=== PATIENT | male | born 1955 | race Caucasian/White ===

== ENCOUNTER 2017-07-23 02:49 | Inpatient (IN) | payer BC, OTHER ==
[~2017-07-23] VITALS: Ht 172.7 cm; Wt 107.1 kg
[2017-07-23] VITALS (8 sets, daily range): BP systolic 126–210; BP diastolic 77–119; PULSE 62–74; TEMP 36.4–36.9; O2SAT 95–97; Ht 172.7 cm; Wt 107.1 kg
[~2017-07-23 02:49] MED LIST: ASPEC325 PO; ATOR10TA88 PO; CARV25TA2 PO; CLON0.1T12 PO; GLC/500 PO; LISI-786 PO; TERA1CAP PO; VRP40 PO
[2017-07-23] MEDS ORDERED: SODIUM CHLORIDE 0.9% 1000ML 1,000 ML IV SCH (03:01)
[2017-07-23] MEDS ORDERED: ONDANSETRON INJ 2 MG/ML 2 ML VIAL IV STA (03:02)
[2017-07-23] MEDS ORDERED: MoRPHine SULFATE 4 MG/ML 1 ML CARP\\VIAL IV STA (03:02)
[2017-07-23] MEDS ORDERED: LABETALOL HCL IV 5 MG/ML 20ML IV STA ×3 (03:22→04:00)
[2017-07-23 03:25] LABS: BASO % 0.5 %; BASO ABS # 0.05 K/uL (0-0.2); COMPLETE YES; EOS % 2.5 %; HEMATOCRIT 47.5 % (42-52); IG% 0.4 %; LYMPH % 31.8 %; LYMPH ABS # 3.28 K/uL (1.2-3.4); MEAN CELL VOLUME 79.7 fL (80-100); MEAN CORPUSCULAR HEMOGLOBIN 26.3 pg (25-34); MEAN CORPUSCULAR HGB CONC 33.1 g/dl (32-36); MEAN PLATELET VOLUME 10.3 fL (7.4-10.4); MONO % 10.1 %; NEUT % 54.7 %; PLATELET COUNT 276 K/uL (130-400); RED BLOOD COUNT 5.96 M/uL (4.7-6.1)
[2017-07-23 03:33] LABS: PARTIAL THROMBOPLASTIN RATIO 1.2; PROTHROMBIN TIME (PATIENT) 10.7 SECONDS (9.0-12.0)
[2017-07-23] MEDS ORDERED: OPTIRAY 320 IV PRN (04:00)
[2017-07-23 04:18] LABS: ALT/SGPT 29 U/L (12-78); AST/SGOT 22 U/L (15-37); BLOOD UREA NITROGEN 14 mg/dl (7-18); BUN/CREATININE RATIO 14.5 (10-20); CALCIUM 8.5 mg/dl (8.5-10.1); CARBON DIOXIDE 26 mmol/L (21-32); CHLORIDE 105 mmol/L (98-107); GLUCOSE 142 mg/dl (70-99); POTASSIUM 4.2 mmol/L (3.5-5.1); SODIUM 137 mmol/L (136-145)
[2017-07-23 04:23] LABS: ALKALINE PHOSPHATASE 80 U/L (45-117); CKMB/CK RATIO 1.3 (0-3.0)
[2017-07-23] MEDS ORDERED: HydrALAZINE HCL 20 MG/ML VIAL IV. STA (04:23)
[2017-07-23] MEDS ORDERED: ASPI81TA28 PO (05:19)
[2017-07-23] MEDS ORDERED: ATOR-22 PO (05:20)
[2017-07-23] MEDS ORDERED: TRAM-10 PO (05:21)
[2017-07-23] MEDS ORDERED: TERA5CAP PO (05:22)
[2017-07-23] MEDS ORDERED: CLON0.1T12 PO (05:27)
[2017-07-23] MEDS ORDERED: FINA5TAB PO (05:28)
--- NOTE | 2017-07-23 06:00 | EMERGENCY ROOM VISIT NOTE ---
History First contact with patient: 02:57 Chief Complaint: HEADACHE Stated Complaint: HEADACHE History of Present Illness The patient is a 62 year old male who presents to the Emergency Room with complaints of severe sudden on onset of headache that woke him up out of sleep currently 7 out of 10 to the left frontal region. It does not radiate. Nothing makes it better or worse. Patient also complains of nausea. Patient states he felt fine all day and was working like normal but then he felt slightly tired and nauseous and went to bed early. He states he woke up out of sleep with severe headache. He does not have a history of migraines. Patient denies chest pain, dyspnea, fever, chills, vomiting, diarrhea, localized weakness, injury to the area. Patient takes a baby aspirin. Patient states he does not normally have high blood pressure like this. Review of Systems See HPI for pertinent positives & negatives. A total of 10 systems reviewed and were otherwise negative. Past Medical/Surgical History Medical Problems: (1) right Knee DJD Hypertension, hyperlipidemia, diabetes type 2, nephrectomy Social History Smoking Status: Never Smoker Smokeless Tobacco Use: Yes Drug Use: none Marital Status: Housing Status: lives with family Occupation Status: employed Current/Historical Medications Scheduled Aspirin (Aspirin Ec), 81 MG PO DAILY Atorvastatin (Lipitor), 20 MG PO HS Carvedilol (Coreg), 25 MG PO BID Clonidine Hcl (Catapres), 0.1 MG PO QPM Clonidine Hcl (Catapres), 0.2 MG PO QAM Finasteride (Proscar), 5 MG PO DAILY Lisinopril & Hydrochlorothiazi (Zestoretic), 1 TAB PO BID Metformin Hcl (Glucophage), 500 MG PO BID Terazosin (Hytrin), 5 MG PO HS Verapamil (Calan), 40 MG PO BID Scheduled PRN Tramadol (Ultram), 50 MG PO Q8H PRN for Pain Physical Exam Vital Signs Date Time Temp Pulse Resp B/P (MAP) Pulse Ox O2 Delivery O2 Flow Rate FiO2 07/23/17 05:21 83 208/104 96 Room Air 07/23/17 05:11 179/113 07/23/17 05:01 206/99 07/23/17 04:10 67 15 235/122 93 07/23/17 04:00 68 16 220/120 96 07/23/17 03:50 67 15 226/114 94 07/23/17 03:44 71 16 221/114 97 Room Air 07/23/17 03:31 72 07/23/17 03:31 69 18 224/107 96 07/23/17 03:22 72 18 233/125 95 Room Air 07/23/17 03:13 95 Room Air 07/23/17 02:54 36.9 75 18 246/132 95 Room Air Physical Exam VITALS: Vitals are noted on the nurse's note and reviewed by myself. Vital signs hypertensive GENERAL: Pleasant male, in no acute distress, nondiaphoretic, well-developed well-nourished. SKIN: The skin was without rashes, erythema, edema, or bruising. There is no tenting of the skin. Capillary reflex less than 2 seconds. HEAD: Normocephalic atraumatic. EARS: External auditory canals clear, tympanic membranes pearly moon without erythema or effusion bilaterally. EYES: Pupils equal round and reactive to light and accommodation. Conjunctivae without injection, sclerae without icterus. Extraocular movements intact. NOSE: Patent, turbinates without inflammation or discharge. No sinus tenderness. MOUTH: Mucous membranes moist. Pharynx without erythema or exudate. Uvula midline. Airway patent. Tongue does not deviate. NECK: Supple without nuchal rigidity. No lymphadenopathy. No thyromegaly. Cervical spine is nontender. No JVD. HEART: Regular rate and rhythm LUNGS: Clear to auscultation bilaterally without wheezes, rales or rhonchi. No dullness to percussion. No retractions or accessory muscle use. ABDOMEN: Positive bowel sounds x 4. Normal tympanic percussion. Soft, nontender, without masses or organomegaly. Alatorre sign negative. No guarding or rebound tenderness. MUSCULOSKELETAL: No muscle atrophy, erythema, or edema noted. NEURO: Patient was alert and oriented to person place and time. Normal sensation to light and sharp touch. No focal neurological deficits. Medical Decision & Procedures Laboratory Results 07/23/17 03:05 Red Blood Count 5.96, Mean Corpuscular Volume 79.7, Mean Corpuscular Hemoglobin 26.3, Mean Corpuscular Hemoglobin Concent 33.1, Mean Platelet Volume 10.3, Neutrophils (%) (Auto) 54.7, Lymphocytes (%) (Auto) 31.8, Monocytes (%) (Auto) 10.1, Eosinophils (%) (Auto) 2.5, Basophils (%) (Auto) 0.5, Neutrophils # (Auto ) 5.63, Lymphocytes # (Auto) 3.28, Monocytes # (Auto) 1.04, Eosinophils # (Auto ) 0.26, Basophils # (Auto) 0.05 07/23/17 03:05 Test 07/23/17 03:05 White Blood Count 10.30 K/uL (4.8-10.8) Red Blood Count 5.96 M/uL (4.7-6.1) Hemoglobin 15.7 g/dL (14.0-18.0) Hematocrit 47.5 % (42-52) Mean Corpuscular Volume 79.7 fL (80-100) Mean Corpuscular Hemoglobin 26.3 pg (25-34) Mean Corpuscular Hemoglobin Concent 33.1 g/dl (32-36) Platelet Count 276 K/uL (130-400) Mean Platelet Volume 10.3 fL (7.4-10.4) Neutrophils (%) (Auto) 54.7 % Lymphocytes (%) (Auto) 31.8 % Monocytes (%) (Auto) 10.1 % Eosinophils (%) (Auto) 2.5 % Basophils (%) (Auto) 0.5 % Neutrophils # (Auto) 5.63 K/uL (1.4-6.5) Lymphocytes # (Auto) 3.28 K/uL (1.2-3.4) Monocytes # (Auto) 1.04 K/uL (0.11-0.59) Eosinophils # (Auto) 0.26 K/uL (0-0.5) Basophils # (Auto) 0.05 K/uL (0-0.2) RDW Standard Deviation 40.7 fL (36.4-46.3) RDW Coefficient of Variation 14.1 % (11.5-14.5) Immature Granulocyte % (Auto) 0.4 % Immature Granulocyte # (Auto) 0.04 K/uL (0.00-0.02) Prothrombin Time 10.7 SECONDS (9.0-12.0) Prothromb Time International Ratio 1.0 (0.9-1.1) Activated Partial Thromboplast Time 30.1 SECONDS (21.0-31.0) Partial Thromboplastin Ratio 1.2 Anion Gap 6.0 mmol/L (3-11) Est Creatinine Clear Calc Drug Dose 92.8 ml/min Estimated GFR () 93.1 Estimated GFR (Non- 80.3 BUN/Creatinine Ratio 14.5 (10-20) Calcium Level 8.5 mg/dl (8.5-10.1) Total Bilirubin 0.4 mg/dl (0.2-1) Direct Bilirubin < 0.1 mg/dl (0-0.2) Aspartate Amino Transf (AST/SGOT) 22 U/L (15-37) Alanine Aminotransferase (ALT/SGPT) 29 U/L (12-78) Alkaline Phosphatase 80 U/L (45-117) Total Creatine Kinase 193 U/L (39-308) Creatine Kinase MB 2.5 ng/ml (0.5-3.6) Creatine Kinase MB Ratio 1.3 (0-3.0) Troponin I < 0.015 ng/ml (0-0.045) Total Protein 7.5 gm/dl (6.4-8.2) Albumin 3.9 gm/dl (3.4-5.0) Medications Administered Medications (Trade) Dose Ordered Sig/Nika Route Start Time Stop Time Status Last Admin Dose Admin Sodium Chloride 1,000 ml @ 50 mls/hr Q20H IV 07/23/17 03:01 08/22/17 03:00 07/23/17 03:30 50 MLS/HR Morphine Sulfate (MoRPHine SULFATE INJ) 4 mg NOW STAT IV 07/23/17 03:02 07/23/17 03:03 DC 07/23/17 03:08 4 MG Ondansetron HCl (Zofran Inj) 4 mg NOW STAT IV 07/23/17 03:02 07/23/17 03:03 DC 07/23/17 03:08 4 MG Labetalol HCl (Normodyne IV) 10 mg NOW STAT IV 07/23/17 03:22 07/23/17 03:23 DC 07/23/17 03:30 10 MG Labetalol HCl (Normodyne IV) 10 mg NOW STAT IV 07/23/17 03:41 07/23/17 03:42 DC 07/23/17 03:44 10 MG Labetalol HCl (Normodyne IV) 10 mg NOW STAT IV 07/23/17 04:00 07/23/17 04:01 DC 07/23/17 04:08 10 MG Hydralazine HCl (HydrALAZINE INJ) 10 mg NOW STAT IV. 07/23/17 04:23 07/23/17 04:24 DC 07/23/17 04:36 10 MG ED Course Prior records/ancillary studies reviewed. Additional history obtained from family. Triage Nursing notes reviewed. The patient's history was concerning for headache. Differential diagnosis: Etiologies such as migraine headache, meningitis, sinusitis, CO exposure, ICH, SAH, infection, tumor, headache, sinus thrombosis, arterial dissection, as well as others were entertained. Physical examination findings: As above. Non-focal. ER treatment provided: Morphine, Zofran, labetalol, hydralazine On reassessment the patient felt better. Diagnostics interpreted by me: ECG: Normal sinus, normal intervals, no acute ST-T wave changes. Impression normal sinus rhythm interpreted by myself The labs revealed stable H&H. Negative troponin. Imaging studies: Head CT negative for intracranial bleed per radiology CTA negative for bleed or aneurysm Consultation: A consultation was placed with the hospitalist, Dr Edwards. The case was discussed and diagnostics were reviewed. The patient was evaluated in the ER for further treatment. This appears to be consistent with hypertensive urgency with headache. Patient was given multiple rounds of anti-hypertensive medications. He was still hypertensive. His headache has improved though. No aneurysm or bleed on CT imaging per radiology. Patient was neurovascularly and neurologically intact. He will be evaluated by medicine for possible admission.. By the evaluation outlined above emergent etiologies such as meningitis, sinusitis, CO exposure, ICH, SAH, infection, temporal arteritis, tumor, sinus thrombosis, arterial dissection, as well as others were deemed relatively unlikely. The pt informed about the findings as listed above. All questions were answered and pleased with the treatment. Case reviewed with my attending Medical Decision As above Medication Reconcilliation Current Medication List: was personally reviewed by me Blood Pressure Screening Patient's blood pressure: Elevated blood pressure Blood pressure disposition: Referred to PCP Impression Primary Impression: Hypertensive urgency Additional Impression: Headache Departure Information Dispostion Being Evaluated By Hospitalist Condition FAIR Referrals Lukas Davila M.D. (MEDICAL) (PCP) Patient Instructions My [facility] Problem Qualifiers
--- NOTE | 2017-07-23 07:01 | DIAGNOSTIC IMAGING REPORT ---
HEAD CTA HISTORY: Headache. TECHNIQUE: Multiaxial CT images of the head were performed after the intravenous administration of contrast to evaluate the major cerebral vessels. Maximum intensity projection images were also obtained. A dose lowering technique was utilized adhering to the principles of ALARA. COMPARISON: Head CT 07/23/2017. FINDINGS: There is no mass, hematoma, midline shift, or acute infarct. Moderate focal calcified plaque within the supraclinoid segment of the right internal carotid artery resulting in mild stenosis. Mild calcified plaque within the supraclinoid segment of the left internal carotid artery without significant stenosis. The distal vertebral arteries, and basilar artery are widely patent. 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 IMPRESSION: Mild stenosis within the supraclinoid segment of the right internal carotid artery. Otherwise, no significant stenosis, occlusion, or aneurysm within the [place]. Electronically signed by: Josef Sotelo M.D. 07/23/2017 7:00 AM Dictated Date/Time: 07/23/2017 6:56 AM
--- NOTE | 2017-07-23 07:25 | DIAGNOSTIC IMAGING REPORT ---
HEAD CT NONCONTRAST CT DOSE: 614.27 mGy.cm HISTORY: Stroke TECHNIQUE: Multiaxial CT images of the head were performed without the use of intravenous contrast. Automated exposure control was utilized for this study. A dose lowering technique was utilized adhering to the principles of ALARA. Comparison: None. Findings: Mild mucosal thickening within the ethmoid air cells and right maxillary sinus. Small lipoma superior to the left cerebellar vermis. Small focus of encephalomalacia within the right centrum semiovale. This favors an old lacunar infarct. The calvarium and skull base are intact. The ventricles and sulci are within normal limits. There is no mass, hematoma, midline shift, or acute infarct. Impression: No acute intracranial abnormality. Electronically signed by: Josef Sotelo M.D. 07/23/2017 7:24 AM Dictated Date/Time: 07/23/2017 7:22 AM
[2017-07-23] MEDS ORDERED: ACETAMINOPHEN 325 MG TAB PO PRN (08:15)
[2017-07-23] MEDS ORDERED: ONDANSETRON INJ 2 MG/ML 2 ML VIAL IV PRN (08:15)
[2017-07-23] MEDS ORDERED: POLYETHYLENE (MIRALAX) 17 GM PACK PO PRN (08:15)
--- NOTE | 2017-07-23 09:21 | History and Physical ---
History & Physical Date & Time of Service: Jul 23, 2017 at 08:56 Chief Complaint: Headache Primary Care Physician: Lukas Davila M.D. (MEDICAL) History of Present Illness Source: patient, family Patient is a 62 yo male who presented to the ER today for complaints of a severe TONG and throbbing sensation behind his eyes that awoke him from sleep. He reports never having these types of symptoms before. He states he went to sleep with a mild TONG around 10 and by 12 AM he woke up with sharp stabbing type pain behind his eyes and a severe TONG and came to the ER right away. He denies any recent medication changes but does admit he does not take his medications the way he should, he states alot of times he just forgets it, he often misses at least one dose a day and his also states this has been an ongoing issue and she is always reminding him to take his pills. He denies any visual changes of blurry or double vision, denies any photophobia. His eye pain has improved since being in the ER. He denies any other associated symptoms, but he does mention that unrelated to his presenting problem that he does experience chest pressure and SOB with exertion and has also noticed decreasing tolerance to exertional activities. He denies any lightheadedness/dizziness, N/V/D, abdominal pain, palpitations, diaphoresis, fever, chills. rigors. He states he had a cough and cold last week but it has mostly resolved and he did not take any OTC medications for the symptoms. Past Medical/Surgical History PAST MEDICAL HISTORY: -Hyperlipidemia -Hypertension. -Diabetes mellitus -Obesity with a BMI of 37 -Single kidney due to prior nephrectomy -Nephrolithiasis (in the kidney that was removed) -History of melanoma -Osteoarthritis PAST SURGICAL HISTORY: -Nephrectomy in 2001. -Herniorrhaphy. -Shoulder surgery. -TKA -Tonsillectomy and adenoidectomy Social History Smoking Status: Former Smoker (quit smoking about 15 years ago) Smokeless Tobacco Use: Yes (1 can of snuff a day for 15 years) Alcohol Use: occasionally Drug Use: none Marital Status: Housing status: lives with family Occupational Status: employed Immunizations History of Influenza Vaccine: No History of Tetanus Vaccine?: Yes Tetanus Immunization Date: Aug 11, 2004 History of Pneumococcal: No History of Hepatitis B Vaccine: No Multi-Drug Resistant Organisms History of MDRO: No Allergies Coded Allergies: No Known Allergies (Verified , 10/21/16) Home Medications Scheduled Aspirin (Aspirin Ec), 81 MG PO DAILY Atorvastatin (Lipitor), 20 MG PO HS Carvedilol (Coreg), 25 MG PO BID Clonidine Hcl (Catapres), 0.1 MG PO QPM Clonidine Hcl (Catapres), 0.2 MG PO QAM Finasteride (Proscar), 5 MG PO DAILY Lisinopril & Hydrochlorothiazi (Zestoretic), 1 TAB PO BID Metformin Hcl (Glucophage), 500 MG PO BID Terazosin (Hytrin), 5 MG PO HS Verapamil (Calan), 40 MG PO BID Scheduled PRN Tramadol (Ultram), 25-50 MG PO Q8H PRN for Pain Review of Systems A full 10 systems were reviewed with the patient, the pertinent positives and negatives are in the HPI, all other ROS conducted were negative Physical Exam Vital Signs Date Time Temp Pulse Resp B/P (MAP) Pulse Ox O2 Delivery O2 Flow Rate FiO2 07/23/17 08:45 72 19 96 07/23/17 08:40 186/105 07/23/17 08:31 212/129 07/23/17 08:20 182/106 07/23/17 08:15 76 18 97 07/23/17 08:10 169/97 07/23/17 08:00 160/96 07/23/17 07:50 180/98 07/23/17 07:45 74 22 94 07/23/17 07:40 175/105 07/23/17 07:30 185/99 07/23/17 07:20 191/99 07/23/17 07:15 75 15 95 07/23/17 07:10 187/109 07/23/17 07:05 96 Room Air 07/23/17 07:00 162/90 07/23/17 06:51 190/94 07/23/17 06:45 73 20 96 07/23/17 06:40 164/91 07/23/17 06:30 189/87 07/23/17 06:20 170/98 07/23/17 06:15 74 15 96 07/23/17 06:14 70 18 187/88 Room Air 07/23/17 06:10 187/88 07/23/17 06:00 201/112 07/23/17 05:50 188/106 07/23/17 05:45 75 16 95 07/23/17 05:40 210/107 07/23/17 05:30 202/113 07/23/17 05:21 83 208/104 96 Room Air 07/23/17 05:21 208/104 07/23/17 05:15 77 23 96 07/23/17 05:11 179/113 07/23/17 05:10 179/113 07/23/17 05:01 206/99 07/23/17 05:00 206/99 07/23/17 04:56 211/98 07/23/17 04:45 71 17 212/107 95 07/23/17 04:40 211/112 07/23/17 04:20 219/106 07/23/17 04:15 64 18 94 07/23/17 04:10 67 15 235/122 93 07/23/17 04:00 68 16 220/120 96 07/23/17 03:50 67 15 226/114 94 07/23/17 03:44 71 16 221/114 97 Room Air 07/23/17 03:31 72 07/23/17 03:31 69 18 224/107 96 07/23/17 03:22 72 18 233/125 95 Room Air 07/23/17 03:13 95 Room Air 07/23/17 02:54 36.9 75 18 246/132 95 Room Air General Appearance: WD/WN, no apparent distress Head: normocephalic, atraumatic Eyes: PERRL, EOMI, sclerae normal, + pertinent finding (conjunctival erythema in both eyes) ENT: normal ENT inspection, hearing grossly normal, pharynx normal Neck: supple, no JVD, no carotid bruits, trachea midline Respiratory/Chest: chest non-tender, lungs clear, normal breath sounds, no respiratory distress Cardiovascular: regular rate, rhythm, no edema, no gallop, no JVD, no murmur, normal peripheral pulses Abdomen/GI: normal bowel sounds, non tender, soft, no organomegaly, + hepatomegaly (slight), + pertinent finding (no splenomegaly, no hernia or peritonitis noted) Back: normal inspection, no CVA tenderness, no muscle spasm Extremities/Musculoskelatal: no calf tenderness, normal capillary refill, no pedal edema Neurologic/Psych: no motor/sensory deficits, alert, normal mood/affect, oriented x 3 Skin: normal color, warm/dry, no rash Lymphatic: no adenopathy Diagnostics Laboratory Results Results Past 24 Hours Test 07/23/17 03:05 Range/Units White Blood Count 10.30 4.8-10.8 K/uL Red Blood Count 5.96 4.7-6.1 M/uL Hemoglobin 15.7 14.0-18.0 g/dL Hematocrit 47.5 42-52 % Mean Corpuscular Volume 79.7 80-100 fL Mean Corpuscular Hemoglobin 26.3 25-34 pg Mean Corpuscular Hemoglobin Concent 33.1 32-36 g/dl Platelet Count 276 130-400 K/uL Mean Platelet Volume 10.3 7.4-10.4 fL Neutrophils (%) (Auto) 54.7 % Lymphocytes (%) (Auto) 31.8 % Monocytes (%) (Auto) 10.1 % Eosinophils (%) (Auto) 2.5 % Basophils (%) (Auto) 0.5 % Neutrophils # (Auto) 5.63 1.4-6.5 K/uL Lymphocytes # (Auto) 3.28 1.2-3.4 K/uL Monocytes # (Auto) 1.04 0.11-0.59 K/uL Eosinophils # (Auto) 0.26 0-0.5 K/uL Basophils # (Auto) 0.05 0-0.2 K/uL RDW Standard Deviation 40.7 36.4-46.3 fL RDW Coefficient of Variation 14.1 11.5-14.5 % Immature Granulocyte % (Auto) 0.4 % Immature Granulocyte # (Auto) 0.04 0.00-0.02 K/uL Prothrombin Time 10.7 9.0-12.0 SECONDS Prothromb Time International Ratio 1.0 0.9-1.1 Activated Partial Thromboplast Time 30.1 21.0-31.0 SECONDS Partial Thromboplastin Ratio 1.2 Sodium Level 137 136-145 mmol/L Potassium Level 4.2 3.5-5.1 mmol/L Chloride Level 105 98-107 mmol/L Carbon Dioxide Level 26 21-32 mmol/L Anion Gap 6.0 3-11 mmol/L Blood Urea Nitrogen 14 7-18 mg/dl Creatinine 1.00 0.60-1.40 mg/dl Est Creatinine Clear Calc Drug Dose 92.8 ml/min Estimated GFR () 93.1 Estimated GFR (Non- 80.3 BUN/Creatinine Ratio 14.5 10-20 Random Glucose 142 70-99 mg/dl Calcium Level 8.5 8.5-10.1 mg/dl Total Bilirubin 0.4 0.2-1 mg/dl Direct Bilirubin < 0.1 0-0.2 mg/dl Aspartate Amino Transf (AST/SGOT) 22 15-37 U/L Alanine Aminotransferase (ALT/SGPT) 29 12-78 U/L Alkaline Phosphatase 80 45-117 U/L Total Creatine Kinase 193 39-308 U/L Creatine Kinase MB 2.5 0.5-3.6 ng/ml Creatine Kinase MB Ratio 1.3 0-3.0 Troponin I < 0.015 0-0.045 ng/ml Total Protein 7.5 6.4-8.2 gm/dl Albumin 3.9 3.4-5.0 gm/dl Impression Assessment and Plan HTN URGENCY: -presenting with severe headache, and throbbing pain behind eyes, now improving -likely related to missing doses of medications and recent illness -CT head: negative for acute intracranial process -CTA head: "moderate focal calcified plaque within the supraclinoid segment of the right internal carotid artery resulting in mild stenosis. Mild calcified plaque within the supraclinoid segment of the left internal carotid artery without significant stenosis." Other remaining vessels patent and free of stenosis -will obtain TTE -will start patients home medications and monitor BP -at home is supposed to be on clonidine, lisinopril/HCTZ, and coreg -headache is improving, continue tylenol and tramadol PRN -monitor in tele -check lipid panel DM TYPE II: -check HbA1c -hold metformin -BSG AC and HS -cover with correction scale insulin + lantus HYPERLIPIDEMIA: -continue statin, check lipids Advanced Directives Existing Living Will: No Existing Power of Departmental Shipping Clerk: No VTE Prophylaxis VTE Risk Assessment Done? Y/N: Yes Risk Level: Moderate
[2017-07-23] MEDS ORDERED: DEXTROSE 50% 50 ML SYR IV PRN (09:30)
[2017-07-23] MEDS ORDERED: GLUCAGON FOR INJ 1 MG VIAL SQ PRN (09:30)
[2017-07-23] MEDS ORDERED: GLUCOSE 10 TABS/TUBE PO PRN (09:30)
[2017-07-23] MEDS ORDERED: GLUCOSE 40% GEL 15 GM TUBE PO PRN (09:30)
[2017-07-23] MEDS: CARVEDILOL 25 MG TAB PO SCH ×2 (09:56→20:56)
[2017-07-23] MEDS: ASPIRIN 81 MG ECTAB PO SCH (09:56)
[2017-07-23] MEDS: VERAPAMIL HCL 40 MG TAB PO SCH ×2 (09:56→20:56)
[2017-07-23] MEDS: ENOXAPARIN 40 MG/0.4 ML SYR SC SCH (09:57)
[2017-07-23] MEDS: FINASTERIDE 5 MG TAB PO SCH (09:57)
[2017-07-23] MEDS: CLONIDINE HCL 0.1 MG TAB PO SCH (09:57)
[2017-07-23] MEDS: LISINOPRIL/HCTZ 10/12.5MG TAB PO SCH ×2 (09:57→20:56)
[2017-07-23] MEDS: INSULIN ASPART 100 UNITS/ML 3 ML PEN SC SCH ×3 (11:00→20:57)
[2017-07-23] MEDS: TRAMADOL HCL 50 MG TAB PO PRN ×2 (12:04→23:01)
--- NOTE | 2017-07-23 14:15 | ECHOCARDIOGRAM REPORT ---
*NOTICE TO RECEIVING [employer] [employer] This information is strictly Confidential and protected under [place] law. [place] law prohibits you from making any further disclosure of this information unless further disclosure is expressly permitted by the written consent of the person to whom it pertains or is authorized by law. A general authorization for the release of medical or other information is not sufficient for this purpose. Hospital accepts no responsibility if the information is made available to any other person, INCLUDING THE PATIENT. Interpretation Summary * Name: CORAZON FERNANDEZ Study Date: 07/23/2017 10:41 AM BP: 187/88 mmHg * Patient Location: 218 HR: 70 * : 1955 (M/d/yyyy) Gender: Male Height: 67 in * Age: 62 yrs Ethnicity: [place] Weight: 245 lb * Ordering Physician: Izabel Whitehead * Referring Physician: Self, Referred * Performed By: Wendy Callejas RDCS * * Reason For Study: Malignant Hypertension * BSA: 2.2 m2 * -- Conclusions -- * Left ventricular systolic function is normal. * Ejection Fraction = 60-65%. * There is moderate concentric left ventricular hypertrophy. * The right ventricular systolic function is normal. * Aortic valve sclerosis mild, without significant aortic valvular stenosis. * The left atrial size is normal. * Right atrial size is normal. * Grade I diastolic dysfunction, (abnormal relaxation pattern). * No significant valvular pathology. Procedure Details * A complete two-dimensional transthoracic echocardiogram was performed (2D, M-mode, Doppler and color flow Doppler). Left Ventricle * The left ventricle is normal in size. * There is moderate concentric left ventricular hypertrophy. * Ejection Fraction = 60-65%. * Left ventricular systolic function is normal. Right Ventricle * The right ventricle is normal size. * There is normal right ventricular wall thickness. * The right ventricular systolic function is normal. Atria * The left atrial size is normal. * Right atrial size is normal. * The interatrial septum is intact with no evidence for an atrial septal defect. Mitral Valve * There is mild mitral annular calcification. * The mitral valve leaflets appear thickened, but open well. * Calcified mitral apparatus. * Significant mitral regurgitation is absent. Tricuspid Valve * The tricuspid valve is not well visualized, but is grossly normal. * Significant tricuspid regurgitation is absent. Aortic Valve * Aortic valve sclerosis mild, without significant aortic valvular stenosis. * There is no significant aortic regurgitation. Pulmonic Valve * The pulmonic valve is not well visualized. * There is no significant pulmonary regurgitation. Great Vessels * The aortic root and proximal ascending aorta are normal sized. Pericardium/Pleural * There is no pericardial effusion. Left Ventricular Diastolic Function * Grade I diastolic dysfunction, (abnormal relaxation pattern). MMode 2D Measurements and Calculations IVSd 1.3 cm IVSs 1.6 cm LVIDd 4.5 cm LVIDs 2.8 cm LVPWd 1.6 cm LVPWs 1.8 cm IVS/LVPW 0.76 FS 38.0 % EDV(Teich) 93.2 ml ESV(Teich) 29.6 ml EF(Teich) 68.3 % EDV(cubed) 92.1 ml ESV(cubed) 22.0 ml EF(cubed) 76.1 % % IVS thick 28.3 % % LVPW thick 8.8 % LV mass(C)d 264.3 grams LV mass(C)dI 119.9 grams/m\S\2 LV mass(C)s 181.5 grams LV mass(C)sI 82.4 grams/m\S\2 SV(Teich) 63.6 ml SI(Teich) 28.9 ml/m\S\2 SV(cubed) 70.1 ml SI(cubed) 31.8 ml/m\S\2 ACS 1.6 cm LA dimension 4.2 cm LVAd ap4 26.7 cm\S\2 LVLd ap4 7.8 cm EDV(MOD-sp4) 76.6 ml EDV(sp4-el) 77.8 ml LVAs ap4 15.9 cm\S\2 LVLs ap4 6.8 cm ESV(MOD-sp4) 34.4 ml ESV(sp4-el) 31.4 ml EF(MOD-sp4) 55.1 % EF(sp4-el) 59.7 % LVAd ap2 35.1 cm\S\2 LVLd ap2 8.3 cm EDV(MOD-sp2) 129.8 ml EDV(sp2-el) 125.6 ml LVAs ap2 18.9 cm\S\2 LVLs ap2 6.6 cm ESV(MOD-sp2) 50.6 ml ESV(sp2-el) 45.8 ml EF(MOD-sp2) 61.0 % EF(sp2-el) 63.5 % LVLd %diff 6.4 % EDV(MOD-bp) 102.1 ml LVLs %diff -3.44 % ESV(MOD-bp) 42.5 ml EF(MOD-bp) 58.4 % SV(MOD-sp4) 42.2 ml SI(MOD-sp4) 19.1 ml/m\S\2 SV(MOD-sp2) 79.2 ml SI(MOD-sp2) 35.9 ml/m\S\2 SV(MOD-bp) 59.6 ml SI(MOD-bp) 27.0 ml/m\S\2 SV(sp4-el) 46.4 ml SI(sp4-el) 21.1 ml/m\S\2 SV(sp2-el) 79.8 ml SI(sp2-el) 36.2 ml/m\S\2 Doppler Measurements and Calculations MV E max sina 76.8 cm/sec MV A max sina 93.5 cm/sec MV E/A 0.82 MV dec time 0.28 sec Ao V2 max 134.8 cm/sec Ao max PG 7.3 mmHg Ao max PG (full) 2.2 mmHg LV V1 max PG 5.1 mmHg LV V1 max 112.6 cm/sec PA V2 max 104.2 cm/sec PA max PG 4.3 mmHg TR max sina 111.7 cm/sec
[2017-07-23] MEDS ORDERED: IV FLUIDS COMPLETED PRN (14:45)
[2017-07-23 16:18] LABS: CKMB/CK RATIO 1.3 (0-3.0)
[2017-07-23] MEDS ORDERED: MoRPHine SULFATE 4 MG/ML 1 ML CARP\\VIAL IV ONE (17:00)
[2017-07-23] MEDS: ATORVASTATIN 20 MG TAB PO SCH (20:56)
[2017-07-23] MEDS ORDERED: CLONIDINE HCL 0.1 MG TAB PO SCH (21:00)
[2017-07-23 23:54] LABS: CKMB/CK RATIO 1.7 (0-3.0)
[2017-07-24] MEDS ORDERED: MoRPHine SULFATE 4 MG/ML 1 ML CARP\\VIAL IV ONE
[2017-07-24] MEDS ORDERED: MoRPHine SULFATE 4 MG/ML 1 ML CARP\\VIAL ONE (00:03)
[2017-07-24 03:46] VITALS: BP 113/74; PULSE 67; TEMP 36.5; O2SAT 95
[2017-07-24 07:09] LABS: ESTIMATED AVERAGE GLUCOSE 128 mg/dl; HA1C FLAG Normal (Normal)
[2017-07-24 07:27] VITALS: BP 144/76; PULSE 62; TEMP 36.5; O2SAT 94
[2017-07-24 07:36] LABS: CHOLESTEROL/HDL RATIO 4.2
[2017-07-24] MEDS: INSULIN ASPART 100 UNITS/ML 3 ML PEN SC SCH ×4 (08:17→20:11)
[2017-07-24] MEDS: ENOXAPARIN 40 MG/0.4 ML SYR SC SCH (08:44)
[2017-07-24] MEDS: CARVEDILOL 25 MG TAB PO SCH ×2 (08:45→20:13)
[2017-07-24] MEDS: FINASTERIDE 5 MG TAB PO SCH (08:45)
[2017-07-24] MEDS: VERAPAMIL HCL 40 MG TAB PO SCH ×2 (08:46→20:14)
[2017-07-24] MEDS: ASPIRIN 81 MG ECTAB PO SCH (08:47)
[2017-07-24] MEDS: CLONIDINE HCL 0.1 MG TAB PO SCH (08:47)
[2017-07-24] MEDS: LISINOPRIL/HCTZ 10/12.5MG TAB PO SCH (08:48)
[2017-07-24 10:59] VITALS: BP 104/66; PULSE 63; TEMP 36.1; O2SAT 95
[2017-07-24] MEDS: TRAMADOL HCL 50 MG TAB PO PRN ×2 (12:04→20:11)
--- NOTE | 2017-07-24 12:44 | CARDIOLOGY CONSULTATION ---
DATE OF CONSULTATION: 07/24/2017 REFERRING PHYSICIAN: Dr. Whitehead. REASON FOR CONSULTATION: Hypertensive urgency. HISTORY OF PRESENT ILLNESS: This is a 62-year-old male patient who I am able to interview with his , who is in the room. He has a longstanding history of hypertension. She states that he has been hypertensive since they have been . In general, he does take his medicines, but his is very instrumental in making sure that they are available to him and that she monitors that he takes them. Last week, however, she was away. He now admits that he was not at diligent about taking all his medications. He came into the Emergency Department with severe headache. He was markedly hypertensive and now has been admitted with hypertensive urgency. He has had no chest pain or shortness of breath. He continues to have a throbbing headache over his left eye. The patient had both a CT of the head that showed no acute pathology. He also had a CT angio that shows no significant vascular problems. The patient's cardiac markers are negative. He has a history of a solitary kidney, but his creatinine is 1.0. ALLERGIES: No known medical allergies. PAST MEDICAL HISTORY: As outlined in the history of chief complaint, he has a longstanding history of hypertension. He is also treated for diabetes and dyslipidemia. He has a solitary kidney due to prior nephrectomy, which was performed due to nephrolithiasis. He has had a previous history of melanoma. SOCIAL HISTORY: He stopped smoking 15 years ago. He still uses smokeless tobacco. He is and lives with his family. FAMILY MEDICAL HISTORY: Noncontributory. REVIEW OF SYSTEMS: A 10-point review of systems is negative except for the history of chief complaint. PHYSICAL EXAMINATION: GENERAL: He is alert and oriented. VITAL SIGNS: Current blood pressure is 110/70. Pulse is regular at 63. He is afebrile. HEENT: He is normocephalic. Pupils are equal and pin point bilaterally. Extraocular muscles are intact bilaterally. Mucous membranes are moist. NECK: The neck veins are flat. Carotids have good upstrokes bilaterally without bruits. Thyroid is nonpalpable. RESPIRATORY: Breath sounds equal bilaterally and clear to auscultation. CARDIOVASCULAR: Heart has a regular rate and rhythm. Normal S1 and S2. No S3 or S4. No cardiac rubs or murmurs. GASTROINTESTINAL: Abdomen is soft and nontender without organomegaly. EXTREMITIES: Free of edema, digit clubbing, or cyanosis. NEUROLOGIC: Grossly intact. SKIN: Warm to touch. LYMPH NODES: Negative to palpation. LABORATORY DATA: Per the history of chief complaint, the patient is currently in sinus rhythm. His EKG shows no acute changes. IMPRESSION: 1. Hypertensive crisis. 2. Possible medical noncompliance. 3. Hypertensive heart disease. 4. Solitary kidney. 5. Diabetes. 6. Dyslipidemia. RECOMMENDATIONS: The patient's blood pressure has improved now that he is back on his medications. Due to his noncompliance, I do not believe that the clonidine is a good medication for him as he will have rebound effects every time he does not take this medication. I will discontinue it and increase his lisinopril. While he is in the hospital, we should try to simplify his antihypertensive regimen. I am concerned regarding his continued headache over his left eye. I think a neurology consult is indicated. Further evaluation and treatment following the above. ADALID
[2017-07-24] MEDS ORDERED: MoRPHine SULFATE 4 MG/ML 1 ML CARP\\VIAL IV STA ×2 (13:21→23:17)
--- NOTE | 2017-07-24 14:10 | Neurology Consultation ---
Neurology Consultation Date of Consultation: Jul 24, 2017. Attending Physician: Izabel Whitehead D.O. Primary Care Physician: Lukas Davila M.D. (MEDICAL) Reason for Consultation: Left sided globular headaches History of Present Illness Source: patient, spouse 62 year old male who has a PMH DL, HTN, DM, obesity with BMI 37, single kidney - nephrectomy, nephrolithiasis, melanoma, OA. His is bedside and states she was out of town for the week and no sure what his blood pressure has been during the week. He states he was not taking his blood pressure medications regularly. He went to bed about 7p which was unusual for him. He woke at about midnight with an excruciating headache. He told his he needed to go to the hospital and was seen in the ED early Monday morning. He states he is still having the headache which is relieved with morphine. He has tried other medication they have given him but the morphine is the only thing that gives him relief. He quit smoking 15 years ago and still chews a can of snuff per day. He does not drink much EtOH and minimal caffeine use. Mother passed age 48 aneurysm rupture. denies CP, SOB, abdominal pain, weakness, falls numbness tingling, vision changes, neck pain, Lhermitte sign, N, V. +9/10 headaches Past Medical/Surgical History Medical Problems: (1) Headache Status: Acute (2) Hypertensive urgency Status: Acute Social History Smoking Status: Former smoker Smokeless Tobacco Use: Yes (1 can of snuff a day for 15 years) Alcohol Use: occasionally Drug Use: none Marital Status: Housing Status: lives with family Occupation Status: employed Allergies Coded Allergies: No Known Allergies (Verified , 10/21/16) Current Inpatient Medications Current Inpatient Medications Medications (Trade) Dose Ordered Sig/Nika Route Start Time Stop Time Status Last Admin Dose Admin Ioversol (Optiray 320) 100 ml UD PRN IV 07/23/17 04:00 07/27/17 03:59 Enoxaparin Sodium (Lovenox Inj) 40 mg DAILY SC 07/23/17 10:00 08/22/17 09:59 07/24/17 08:44 40 MG Acetaminophen (Tylenol Tab) 650 mg Q4H PRN PO 07/23/17 08:15 08/22/17 08:14 07/23/17 15:41 650 MG Ondansetron HCl (Zofran Inj) 4 mg Q6H PRN IV 07/23/17 08:15 08/22/17 08:14 Polyethylene (Miralax Powder Packet) 17 gm DAILY PRN PO 07/23/17 08:15 08/22/17 08:14 Aspirin (Ecotrin Tab) 81 mg DAILY PO 07/23/17 10:00 08/22/17 09:59 07/24/17 08:47 81 MG Atorvastatin Calcium (Lipitor Tab) 20 mg HS PO 07/23/17 21:00 08/22/17 20:59 07/23/17 20:56 20 MG Carvedilol (Coreg Tab) 25 mg BID PO 07/23/17 10:00 08/22/17 09:59 07/24/17 08:45 25 MG Finasteride (Proscar Tab) 5 mg DAILY PO 07/23/17 10:00 08/22/17 09:59 07/24/17 08:45 5 MG Terazosin HCl (Hytrin Cap) 5 mg HS PO 07/23/17 21:00 08/22/17 20:59 07/23/17 20:56 5 MG Tramadol HCl (Ultram Tab) 25mg-50mg up to 3 ti... Q8H PRN PO 07/23/17 08:15 08/22/17 08:14 07/24/17 12:04 50 MG Verapamil HCl (Isoptin Tab) 40 mg BID PO 07/23/17 10:00 08/22/17 09:59 07/24/17 08:46 40 MG Glucose (Glucose 40% Gel) 15-30 GRAMS 15 GRAMS... UD PRN PO 07/23/17 09:30 08/22/17 09:29 Glucose (Glucose Chew Tab) 4-8 Tablets 4 Tabl... UD PRN PO 07/23/17 09:30 08/22/17 09:29 Dextrose (Dextrose 50% 50ML Syringe) 25-50ML OF 50% DW IV FOR... UD PRN IV 07/23/17 09:30 08/22/17 09:29 Glucagon (Glucagon Inj) 1 mg UD PRN SQ 07/23/17 09:30 08/22/17 09:29 Insulin Aspart (novoLOG ASPART) SLIDING SCALE If C... ACHS SC 07/23/17 11:00 08/22/17 10:59 07/24/17 11:39 2 UNITS Miscellaneous (Iv Fluids Completed) 1 ea PRN PRN N/A 07/23/17 14:45 07/23/18 14:44 07/23/17 20:00 1 EA Lisinopril (Zestril Tab) 20 mg BID PO 07/24/17 21:00 08/23/17 20:59 UNV Hydrochlorothiazide (Hydrochlorothiazide Tab) 12.5 mg QAM PO 07/25/17 09:00 08/24/17 08:59 UNV Physical Exam Vital Signs (Past 24 Hrs): Date Time Temp Pulse Resp B/P (MAP) Pulse Ox O2 Delivery O2 Flow Rate FiO2 07/24/17 10:59 36.1 63 14 104/66 (79) 95 07/24/17 08:00 Room Air 07/24/17 07:48 Room Air 07/24/17 07:27 36.5 62 20 144/76 (98) 94 07/24/17 04:00 Room Air 07/24/17 03:46 36.5 67 16 113/74 (87) 95 Room Air 07/24/17 00:00 Room Air 07/23/17 23:50 36.4 62 18 131/77 (95) 96 Room Air 07/23/17 20:00 Room Air 07/23/17 19:43 74 179/96 (123) 07/23/17 19:09 36.4 68 18 180/100 (126) 97 Room Air 07/23/17 16:00 Room Air 07/23/17 15:06 36.4 65 18 126/78 (94) 97 Room Air Physical Exam: Constitutional: appearance nourished, healthy and obese Ears, Nose, Mouth and Throat: mucous membranes moist, no injection and skin normal, eyes normal Cardiovascular: normal S-1 and S-2 and regular rate and rhythm Respiratory: clear to auscultation (CTA) and no rales, rhonchi or wheeze Musculoskeletal: no peripheral edema and good distal pulses, neck supple no rigidity Skin: no stigmata of neurocutaneous disease noted and normal and intact Eyes: extraocular muscles intact (EOMI) and pupils equal, round and reactive to light (PERRL) miotic NEUROLOGIC EXAMINATION: Mental status: Alert and interactive Oriented to full date and location Oriented to person Speech fluent with no evidence of aphasia Cranial Nerves smile eye brow raise symmetric, tongue midline Reflexes: Deep tendon reflexes were symmetrical and graded 2/5. Plantar responses were flexor. Sensory: light or cool touch Coordination: finger to nose without bi pass or tremor Gait/Stance: Posture normal. Gait normal: with steady with steps, base, turning,tandem gait. Motor: Negative for pronator drift of out stretched arms with eyes closed. 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, hip flex plantar flex ext bilaterally 5/5 Laboratory Results Past 24 Hours: Test 07/23/17 15:18 07/23/17 23:21 07/24/17 06:20 07/24/17 11:01 Thyroid Stimulating Hormone (TSH) 1.140 uIu/ml (0.300-4.500) Free Thyroxine 0.97 ng/dl (0.80-1.60) Total Creatine Kinase 87 U/L (39-308) Creatine Kinase MB 1.5 ng/ml (0.5-3.6) Creatine Kinase MB Ratio 1.7 (0-3.0) Troponin I < 0.015 ng/ml (0-0.045) Estimated Average Glucose 128 mg/dl Hemoglobin A1c 6.1 % (4.5-5.6) Triglycerides Level 163 mg/dl (0-150) Cholesterol Level 152 mg/dl (0-200) HDL Cholesterol 36 mg/dl LDL Cholesterol, Calculated 83 mg/dl VLDL Cholesterol, Calculated 33 mg/dl Cholesterol/HDL Ratio 4.2 Bedside Glucose 119 mg/dl (70-99) Imaging CT head-No acute intracranial abnormality. CTA head Mild stenosis within the supraclinoid segment of the right internal carotid artery. Otherwise, no significant stenosis, occlusion, or aneurysm within the [place]. TTE * Left ventricular systolic function is normal. * Ejection Fraction = 60-65%. * There is moderate concentric left ventricular hypertrophy. * The right ventricular systolic function is normal. * Aortic valve sclerosis mild, without significant aortic valvular stenosis. * The left atrial size is normal. * Right atrial size is normal. * Grade I diastolic dysfunction, (abnormal relaxation pattern). * No significant valvular pathology. * no ASD Impression 62 year old male sudden onset headache with elevated blood pressure Plan 1. CT CTA normal findings 2. TTE no ASD 3. MRI with and without contrast- for better definition of brain evaluation SAH 4. if no findings recommend LP to check for Xanthochromia 5. continue pain management per primary team 6. OOB as tolerated 7. does not appear to need PT/OT at this time 8. sudden onset headache with no history of migraine will need further work up 9. optimize HTN, DL, DM control I have seen and discussed above patient with Dr Shine Mack, neurology I have seen this man examined him reviewed the history and the images available with Caryn Aquino Acute onset of headache in a self admitted noncompliant hypertensive male with no other symptoms yet persistent pain now despite bp being down He may have PRES or a nonaneurysmal SAH so we are going to go for an MRI with and without contrast and will probably get the LP tomorrow under flouro to ensure a "clean" tap will follow tomorrow Shine Mack MD
[2017-07-24 15:51] VITALS: BP 150/81; PULSE 56; TEMP 36.5; O2SAT 94
--- NOTE | 2017-07-24 17:21 | Progress Note ---
Medicine Progress Note Date & Time of Visit: Jul 24, 2017 at 17:08. Subjective Patient reports a severe headache behind his left eye last evening, states that the morphine has been alleviating his symptoms. He denies any additional symptoms today. Has been ambulating in the halls without difficulty. No overnight events noted. Paged later in the day today that the patient again has a similar headache behind his left eye. VSS. Objective Last 8 Hrs Date Time Temp Pulse Resp B/P (MAP) Pulse Ox O2 Delivery O2 Flow Rate FiO2 07/24/17 15:51 36.5 56 18 150/81 (104) 94 Room Air 07/24/17 10:59 36.1 63 14 104/66 (79) 95 Physical Exam: GENERAL: Patient is in no acute distress. HEENT: No acute trauma, normocephalic, atraumatic, mucous membranes moist, no nasal congestion, no scleral icterus. NECK: No stridor, trachea is midline. LUNGS: Clear to auscultation bilaterally, no wheeze, no rhonchi, breath sounds equal. HEART: Without murmurs gallops or rubs, regular rate and rhythm. ABDOMEN: Soft, nontender, bowel sounds positive EXTREMITIES: No cyanosis or edema, full range of motion of all the joints without pain or difficulty, no signs for acute trauma. NEUROLOGIC: Oriented x 3, no acute motor or sensory deficits, no focal weakness. SKIN: No rash, no jaundice, no diaphoresis. Laboratory Results: Last 24 Hours Test 07/23/17 20:10 07/23/17 23:21 07/24/17 06:20 07/24/17 07:42 Bedside Glucose 146 mg/dl 99 mg/dl Total Creatine Kinase 87 U/L Creatine Kinase MB 1.5 ng/ml Creatine Kinase MB Ratio 1.7 Troponin I < 0.015 ng/ml Estimated Average Glucose 128 mg/dl Hemoglobin A1c 6.1 % Triglycerides Level 163 mg/dl Cholesterol Level 152 mg/dl HDL Cholesterol 36 mg/dl LDL Cholesterol, Calculated 83 mg/dl VLDL Cholesterol, Calculated 33 mg/dl Cholesterol/HDL Ratio 4.2 Test 07/24/17 11:01 07/24/17 16:09 Bedside Glucose 119 mg/dl 127 mg/dl Assessment & Plan HTN URGENCY: -presenting with severe headache, and throbbing pain behind eyes, now improving -likely related to missing doses of medications and recent illness -CT head: negative for acute intracranial process -CTA head: "moderate focal calcified plaque within the supraclinoid segment of the right internal carotid artery resulting in mild stenosis. Mild calcified plaque within the supraclinoid segment of the left internal carotid artery without significant stenosis." Other remaining vessels patent and free of stenosis -TTE: EF 60-65%, moderate concentric LVH, grade I diastolic dysfunction -will start patients home medications and monitor BP -at home is supposed to be on clonidine, lisinopril/HCTZ, and coreg but was non- compliant -headache is improving, continue tylenol and tramadol PRN -monitor in tele, no events noted, bradycardia yesterday resolved -Cardiology consulted regarding symptoms of chest pressure with exertion; have stopped clonidine and increased dose of lisinopril as well to wean off clonidine /simplify home regimen HEADACHE: -recurrent even with improvement in BP -sudden onset 2 days ago with no prior history of similar headaches -Neuro consulted, appreciate recommendations, planning for MRI and LP DM TYPE II: -HbA1c: 6.1% -hold metformin -BSG AC and HS -cover with correction scale insulin + lantus HYPERLIPIDEMIA: -continue statin -lipids: LDL 83, total 152, triglycerides 163 Current Inpatient Medications: Current Inpatient Medications Medications (Trade) Dose Ordered Sig/Nika Route Start Time Stop Time Status Last Admin Dose Admin Ioversol (Optiray 320) 100 ml UD PRN IV 07/23/17 04:00 07/27/17 03:59 Enoxaparin Sodium (Lovenox Inj) 40 mg DAILY SC 07/23/17 10:00 08/22/17 09:59 07/24/17 08:44 40 MG Acetaminophen (Tylenol Tab) 650 mg Q4H PRN PO 07/23/17 08:15 08/22/17 08:14 07/23/17 15:41 650 MG Ondansetron HCl (Zofran Inj) 4 mg Q6H PRN IV 07/23/17 08:15 08/22/17 08:14 Polyethylene (Miralax Powder Packet) 17 gm DAILY PRN PO 07/23/17 08:15 08/22/17 08:14 Aspirin (Ecotrin Tab) 81 mg DAILY PO 07/23/17 10:00 08/22/17 09:59 07/24/17 08:47 81 MG Atorvastatin Calcium (Lipitor Tab) 20 mg HS PO 07/23/17 21:00 08/22/17 20:59 07/23/17 20:56 20 MG Carvedilol (Coreg Tab) 25 mg BID PO 07/23/17 10:00 08/22/17 09:59 07/24/17 08:45 25 MG Finasteride (Proscar Tab) 5 mg DAILY PO 07/23/17 10:00 08/22/17 09:59 07/24/17 08:45 5 MG Terazosin HCl (Hytrin Cap) 5 mg HS PO 07/23/17 21:00 08/22/17 20:59 07/23/17 20:56 5 MG Tramadol HCl (Ultram Tab) 25mg-50mg up to 3 ti... Q8H PRN PO 07/23/17 08:15 08/22/17 08:14 07/24/17 12:04 50 MG Verapamil HCl (Isoptin Tab) 40 mg BID PO 07/23/17 10:00 08/22/17 09:59 07/24/17 08:46 40 MG Glucose (Glucose 40% Gel) 15-30 GRAMS 15 GRAMS... UD PRN PO 07/23/17 09:30 08/22/17 09:29 Glucose (Glucose Chew Tab) 4-8 Tablets 4 Tabl... UD PRN PO 07/23/17 09:30 08/22/17 09:29 Dextrose (Dextrose 50% 50ML Syringe) 25-50ML OF 50% DW IV FOR... UD PRN IV 07/23/17 09:30 08/22/17 09:29 Glucagon (Glucagon Inj) 1 mg UD PRN SQ 07/23/17 09:30 08/22/17 09:29 Insulin Aspart (novoLOG ASPART) SLIDING SCALE If C... ACHS SC 07/23/17 11:00 08/22/17 10:59 07/24/17 11:39 2 UNITS Miscellaneous (Iv Fluids Completed) 1 ea PRN PRN N/A 07/23/17 14:45 07/23/18 14:44 07/23/17 20:00 1 EA Lisinopril (Zestril Tab) 20 mg BID PO 07/24/17 21:00 08/23/17 20:59 Hydrochlorothiazide (Hydrochlorothiazide Tab) 12.5 mg QAM PO 07/25/17 09:00 08/24/17 08:59
--- NOTE | 2017-07-24 19:06 | DIAGNOSTIC IMAGING REPORT ---
MRI OF THE BRAIN WITHOUT AND WITH IV CONTRAST CLINICAL HISTORY: Severe sudden onset headache. Evaluate for subarachnoid hemorrhage. COMPARISON STUDY: Head CT and CTA of the head July 23, 2017. TECHNIQUE: Utilizing a 1.5 Beatriz magnet and dedicated coil, multiplanar, multiecho imaging of the brain was performed pre and postcontrast administration. IV administration of 11 mL of Gadavist contrast was uneventful. FINDINGS: There are no areas of restricted diffusion. No acute intracranial hemorrhage, midline shift or mass effect is present. Specifically, there is no MR evidence for subarachnoid hemorrhage. Ventricular system is normal. Basilar cisterns are patent. There are no extra-axial collections. Flow-voids for the major intracranial vessels are present. White matter T2 hyperintense foci suggest moderate small vessel disease. A 5 mm old lacunar infarct within the white matter the right frontal lobe is noted. A 1.1 cm lipoma along the left superior aspect of the cerebellar vermis is noted. Calvarial signal is normal. Orbits are unremarkable. There is minimal mucosal thickening of the ethmoid sinuses. IMPRESSION: 1. No acute intracranial findings. No evidence for subarachnoid hemorrhage. 2. No intracranial mass or pathologic enhancement. 3. Moderate small vessel disease and a 5 mm old lacunar infarct within the right frontal lobe. Electronically signed by: Carlton Gutierrez M.D. 07/24/2017 7:04 PM Dictated Date/Time: 07/24/2017 7:00 PM
[2017-07-24 19:38] VITALS: BP_SYST 128; BP_SYST 129; BP_DIAS 80; PULSE 64; TEMP 36.6; O2SAT 95
[2017-07-24] MEDS: LISINOPRIL 20 MG TAB PO SCH (20:14)
[2017-07-24] MEDS: ATORVASTATIN 20 MG TAB PO SCH (20:14)
[2017-07-24 23:51] VITALS: BP 135/79; PULSE 59; TEMP 36.7; O2SAT 93
[2017-07-25 03:41] VITALS: BP 155/82; PULSE 66; TEMP 36.4; O2SAT 95
[2017-07-25 06:18] LABS: HEMATOCRIT 41.2 % (42-52); MEAN CELL VOLUME 79.4 fL (80-100); MEAN CORPUSCULAR HEMOGLOBIN 26.2 pg (25-34); MEAN PLATELET VOLUME 10.5 fL (7.4-10.4); PLATELET COUNT 264 K/uL (130-400); RED BLOOD COUNT 5.19 M/uL (4.7-6.1); WHITE BLOOD COUNT 11.23 K/uL (4.8-10.8)
[2017-07-25 06:47] LABS: BUN/CREATININE RATIO 15.2 (10-20); CALCIUM 8.7 mg/dl (8.5-10.1); CREATININE 1.08 mg/dl (0.60-1.40)
[2017-07-25] MEDS: INSULIN ASPART 100 UNITS/ML 3 ML PEN SC SCH ×4 (07:00→21:00)
[2017-07-25 07:46] VITALS: BP 160/85; PULSE 61; TEMP 36.8; O2SAT 92
[2017-07-25] MEDS: FINASTERIDE 5 MG TAB PO SCH (08:12)
[2017-07-25] MEDS: HYDROCHLOROTHIAZIDE 25 MG TAB PO SCH (08:12)
[2017-07-25] MEDS: LISINOPRIL 20 MG TAB PO SCH ×2 (08:12→21:14)
[2017-07-25] MEDS: VERAPAMIL HCL 40 MG TAB PO SCH (08:13)
[2017-07-25] MEDS: ASPIRIN 81 MG ECTAB PO SCH (08:13)
[2017-07-25] MEDS: CARVEDILOL 25 MG TAB PO SCH ×2 (08:13→21:14)
[2017-07-25] MEDS: ENOXAPARIN 40 MG/0.4 ML SYR SC SCH (08:14)
[2017-07-25 11:30] VITALS: BP 152/63; PULSE 74; TEMP 36.7; O2SAT 95
--- NOTE | 2017-07-25 12:00 | Progress Note ---
Internal Med Progress Note Date of Service: Jul 25, 2017. Provider Documentation: SUBJECTIVE: The patient was seen and examined Has had Headache this Morning -better during my examination No associated symptoms with the Headache Headache is Responsive to Narcotics OBJECTIVE: Vital Signs-as noted below Exam: General-No distress at rest Eyes-normal ENT-normal Neck-supple Lungs-Clear to ausucltate bilaterally Heart-Regular,no murmur appreciated Abdomen-Benign,no masses,bowel sound present Extremities-No edema Neuro-AAOx3 Lab data as noted below. ASSESSMENT & PLAN: HYPERTENSIVE URGENCY: -presenting with severe headache, and throbbing pain behind LEFT Eye without any associated symptoms -likely due to noncompliance -CT and MRI of the Head-negative for any acute events and or SAH -CTA head: "moderate focal calcified plaque within the supraclinoid segment of the right internal carotid artery resulting in mild stenosis. Mild calcified plaque within the supraclinoid segment of the left internal carotid artery without significant stenosis." Other remaining vessels patent and free of stenosis -TTE: EF 60-65%, moderate concentric LVH, grade I diastolic dysfunction -Cardiology consulted -appreciate input -Home BP medications started -BP seems to be improving HEADACHE: -recurrent even with improvement in BP -sudden onset 2 days ago with no prior history of similar headaches -Neuro consulted, appreciate recommendations, -MRI -neagtive for any SAH -may need to go for LP DM TYPE II: -HbA1c: 6.1% -hold metformin -BSG AC and HS -cover with correction scale insulin + Lantus HYPERLIPIDEMIA: -continue statin -lipids: LDL 83, total 152, triglycerides 163 Disposition Awaited Vital Signs: Date Time Temp Pulse Resp B/P (MAP) Pulse Ox O2 Delivery O2 Flow Rate FiO2 07/25/17 11:30 36.7 74 16 152/63 (92) 95 07/25/17 08:00 Room Air 07/25/17 07:46 36.8 61 18 160/85 (110) 92 07/25/17 04:00 Room Air 07/25/17 03:41 36.4 66 19 155/82 (106) 95 Room Air 07/25/17 00:00 Room Air 07/24/17 23:51 36.7 59 18 135/79 (97) 93 Room Air 07/24/17 20:00 Room Air 07/24/17 19:38 36.6 64 18 128/80 (96) 95 Room Air 07/24/17 16:00 Room Air 07/24/17 15:51 36.5 56 18 150/81 (104) 94 Room Air Lab Results: Results Past 24 Hours Test 07/24/17 16:09 07/24/17 20:06 07/24/17 20:29 07/25/17 05:54 Range/Units Bedside Glucose 127 99 111 70-99 mg/dl White Blood Count 11.23 4.8-10.8 K/uL Red Blood Count 5.19 4.7-6.1 M/uL Hemoglobin 13.6 14.0-18.0 g/dL Hematocrit 41.2 42-52 % Mean Corpuscular Volume 79.4 80-100 fL Mean Corpuscular Hemoglobin 26.2 25-34 pg Mean Corpuscular Hemoglobin Concent 33.0 32-36 g/dl RDW Standard Deviation 41.1 36.4-46.3 fL RDW Coefficient of Variation 14.3 11.5-14.5 % Platelet Count 264 130-400 K/uL Mean Platelet Volume 10.5 7.4-10.4 fL Sodium Level 140 136-145 mmol/L Potassium Level 4.0 3.5-5.1 mmol/L Chloride Level 106 98-107 mmol/L Carbon Dioxide Level 24 21-32 mmol/L Anion Gap 10.0 3-11 mmol/L Blood Urea Nitrogen 16 7-18 mg/dl Creatinine 1.08 0.60-1.40 mg/dl Est Creatinine Clear Calc Drug Dose 85.0 ml/min Estimated GFR () 84.8 Estimated GFR (Non- 73.2 BUN/Creatinine Ratio 15.2 10-20 Random Glucose 98 70-99 mg/dl Calcium Level 8.7 8.5-10.1 mg/dl Test 07/25/17 06:03 07/25/17 11:16 Range/Units Bedside Glucose 98 101 70-99 mg/dl
[2017-07-25] MEDS: TRAMADOL HCL 50 MG TAB PO PRN ×2 (12:14→23:42)
--- NOTE | 2017-07-25 13:59 | PROGRESS NOTE ---
DATE: 07/25/2017 FOLLOWUP VISIT SUBJECTIVE: This is a 62-year-old male patient who presented with hypertensive urgency. He has been evaluated by neurology and had an MRI of the brain last night. We are waiting for their final recommendations. He did have a headache over his left eye, which seems to be improving and his blood pressure is better controlled today. OBJECTIVE: GENERAL: He is alert and oriented, in no acute distress. VITAL SIGNS: Blood pressure is 150/60. Pulse is regular at 74. He is afebrile. HEENT: He is normocephalic. Pupils are equal and reactive to light. Extraocular muscles are intact bilaterally. NECK: The neck veins are flat. Carotids have good upstrokes bilaterally without bruits. Thyroid is nonpalpable. RESPIRATORY: Breath sounds equal bilaterally and clear to auscultation. CARDIOVASCULAR: Heart has a regular rhythm. Normal S1 and S2. No S3 or S4. No cardiac rubs or murmurs. GASTROINTESTINAL: Abdomen is soft and nontender without organomegaly. EXTREMITIES: Free of edema, digit clubbing, or cyanosis. LABORATORY DATA: Creatinine is 1.08 and potassium is 4.0. Hemoglobin is 13.6. IMPRESSION: 1. Hypertensive crisis. 2. Hypertensive heart disease. 3. Solitary kidney. 4. Diabetes. 5. Dyslipidemia. RECOMMENDATIONS: We will await neurology's final recommendations. I would consider adding amlodipine to his current medical regimen to lower his blood pressure, but he is already on verapamil. If his blood pressure stays up, something like nifedipine or amlodipine is probably better for his blood pressure because it has more vasodilating effect and less negative chronotropic effects on the heart. We would have to switch him off the verapamil and on to these other calcium channel blockers.
--- NOTE | 2017-07-25 15:24 | Neurology Progress Notes ---
Neurology Progress Note Date of Service Jul 25, 2017. Dariusz Riojas is a 62 year old male who has a PMH DL, HTN, DM, obesity with BMI 37, single kidney -nephrectomy, nephrolithiasis, melanoma, OA. His is bedside and states she was out of town for the week and no sure what his blood pressure has been during the week. He states he was not taking his blood pressure medications regularly. He went to bed about 7p which was unusual for him. He woke at about midnight with an excruciating headache. He told his he needed to go to the hospital and was seen in the ED early Monday morning. He states he is still having the headache which is relieved with morphine. He has tried other medication they have given him but the morphine is the only thing that gives him relief. He quit smoking 15 years ago and still chews a can of snuff per day. He does not drink much EtOH and minimal caffeine use. Mother passed age 48 aneurysm rupture. he states he has not needed any morphine since 3a this morning. He did have a pain pill around 12n today but that stopped the headache. He is aware Dr Scott is tweaking his medications and states he will be compliant he doesn't want to go through this again. denies CP, SOB, abdominal pain, weakness, falls numbness tingling, vision changes, neck pain, Lhermitte sign, N, V. 10/18 headaches Objective Date Time Temp Pulse Resp B/P (MAP) Pulse Ox O2 Delivery O2 Flow Rate FiO2 07/25/17 12:00 Room Air 07/25/17 11:30 36.7 74 16 152/63 (92) 95 07/25/17 08:00 Room Air 07/25/17 07:46 36.8 61 18 160/85 (110) 92 07/25/17 04:00 Room Air 07/25/17 03:41 36.4 66 19 155/82 (106) 95 Room Air 07/25/17 00:00 Room Air 07/24/17 23:51 36.7 59 18 135/79 (97) 93 Room Air 07/24/17 20:00 Room Air 07/24/17 19:38 36.6 64 18 128/80 (96) 95 Room Air 07/24/17 16:00 Room Air 07/24/17 15:51 36.5 56 18 150/81 (104) 94 Room Air Last 24 Hours Test 07/24/17 16:09 07/24/17 20:06 07/24/17 20:29 07/25/17 05:54 Bedside Glucose 127 mg/dl 99 mg/dl 111 mg/dl White Blood Count 11.23 K/uL Red Blood Count 5.19 M/uL Hemoglobin 13.6 g/dL Hematocrit 41.2 % Mean Corpuscular Volume 79.4 fL Mean Corpuscular Hemoglobin 26.2 pg Mean Corpuscular Hemoglobin Concent 33.0 g/dl RDW Standard Deviation 41.1 fL RDW Coefficient of Variation 14.3 % Platelet Count 264 K/uL Mean Platelet Volume 10.5 fL Sodium Level 140 mmol/L Potassium Level 4.0 mmol/L Chloride Level 106 mmol/L Carbon Dioxide Level 24 mmol/L Anion Gap 10.0 mmol/L Blood Urea Nitrogen 16 mg/dl Creatinine 1.08 mg/dl Est Creatinine Clear Calc Drug Dose 85.0 ml/min Estimated GFR () 84.8 Estimated GFR (Non- 73.2 BUN/Creatinine Ratio 15.2 Random Glucose 98 mg/dl Calcium Level 8.7 mg/dl Test 07/25/17 06:03 07/25/17 11:16 Bedside Glucose 98 mg/dl 101 mg/dl Imaging: MRI combo- . No acute intracranial findings. No evidence for subarachnoid hemorrhage. No intracranial mass or pathologic enhancement. Moderate small vessel disease and a 5 mm old lacunar infarct within the right frontal lobe. Exam: Physical Exam: Constitutional: appearance nourished, healthy and normal Ears, Nose, Mouth and Throat: mucous membranes moist, no injection and skin normal, eyes normal Cardiovascular: normal S-1 and S-2 and regular rate and rhythm Respiratory: clear to auscultation (CTA) and no rales, rhonchi or wheeze Musculoskeletal: no peripheral edema Skin: no stigmata of neurocutaneous disease noted and normal and intact Eyes: extraocular muscles intact (EOMI) and pupils equal, round and reactive to light (PERRL) NEUROLOGIC EXAMINATION: Mental status: Alert and interactive Oriented to full date and location Oriented to person Speech fluent with no evidence of aphasia Cranial Nerves smile eye brow raise symmetric, tongue midline Reflexes: Deep tendon reflexes were symmetrical and graded 2/5. Sensory: no deficit to light touch Coordination: finger to nose no bi pass or tremor Gait/Stance: Posture normal sitting up in bed. has been ambulating without difficulty today Motor: Negative for pronator drift of out stretched arms with eyes closed. 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 5/5, hip flex plantar flex ext 5/5 bilaterally Current Inpatient Medications Medications (Trade) Dose Ordered Sig/Nika Route Start Time Stop Time Status Last Admin Dose Admin Ioversol (Optiray 320) 100 ml UD PRN IV 07/23/17 04:00 07/27/17 03:59 Enoxaparin Sodium (Lovenox Inj) 40 mg DAILY SC 07/23/17 10:00 08/22/17 09:59 07/25/17 08:14 40 MG Acetaminophen (Tylenol Tab) 650 mg Q4H PRN PO 07/23/17 08:15 08/22/17 08:14 07/23/17 15:41 650 MG Ondansetron HCl (Zofran Inj) 4 mg Q6H PRN IV 07/23/17 08:15 08/22/17 08:14 Polyethylene (Miralax Powder Packet) 17 gm DAILY PRN PO 07/23/17 08:15 08/22/17 08:14 Aspirin (Ecotrin Tab) 81 mg DAILY PO 07/23/17 10:00 08/22/17 09:59 07/25/17 08:13 81 MG Atorvastatin Calcium (Lipitor Tab) 20 mg HS PO 07/23/17 21:00 08/22/17 20:59 07/24/17 20:14 20 MG Carvedilol (Coreg Tab) 25 mg BID PO 07/23/17 10:00 08/22/17 09:59 07/25/17 08:13 25 MG Finasteride (Proscar Tab) 5 mg DAILY PO 07/23/17 10:00 08/22/17 09:59 07/25/17 08:12 5 MG Terazosin HCl (Hytrin Cap) 5 mg HS PO 07/23/17 21:00 08/22/17 20:59 07/24/17 20:13 5 MG Tramadol HCl (Ultram Tab) 25mg-50mg up to 3 ti... Q8H PRN PO 07/23/17 08:15 08/22/17 08:14 07/25/17 12:14 50 MG Glucose (Glucose 40% Gel) 15-30 GRAMS 15 GRAMS... UD PRN PO 07/23/17 09:30 08/22/17 09:29 Glucose (Glucose Chew Tab) 4-8 Tablets 4 Tabl... UD PRN PO 07/23/17 09:30 08/22/17 09:29 Dextrose (Dextrose 50% 50ML Syringe) 25-50ML OF 50% DW IV FOR... UD PRN IV 07/23/17 09:30 08/22/17 09:29 Glucagon (Glucagon Inj) 1 mg UD PRN SQ 07/23/17 09:30 08/22/17 09:29 Insulin Aspart (novoLOG ASPART) SLIDING SCALE If C... ACHS SC 07/23/17 11:00 08/22/17 10:59 07/25/17 11:35 2 UNITS Miscellaneous (Iv Fluids Completed) 1 ea PRN PRN N/A 07/23/17 14:45 07/23/18 14:44 07/23/17 20:00 1 EA Lisinopril (Zestril Tab) 20 mg BID PO 07/24/17 21:00 08/23/17 20:59 07/25/17 08:12 20 MG Hydrochlorothiazide (Hydrochlorothiazide Tab) 12.5 mg QAM PO 07/25/17 09:00 08/24/17 08:59 07/25/17 08:12 12.5 MG Nifedipine (Procardia Xl Tab) 30 mg BID PO 07/25/17 21:00 08/24/17 20:59 Impression 62 year old male sudden onset headache with elevated blood pressure Plan 1. CT CTA normal findings 2. TTE no ASD 3. MRI with and without contrast- no acute finding 4. if no findings recommend LP to check for Xanthochromia - will not need LP 3 negative studies and headaches are improving 5. continue pain management per primary team 6. OOB as tolerated 7. does not appear to need PT/OT at this time 8. sudden onset headache with no history of migraine likely due to non compliance with blood pressure medications 9. optimize HTN, DL, DM control I have seen and discussed above patient with Dr Shine Mack, neurology Patient seen and above recommendations revieswd and discussed with Caryn Gill and with Dr Rupert Three negative studies for sah and headache is better so at this point we can defer on the LP and observe suspect the headache was a symptom of the elevated bp No need for neurological follow up at this time and we will sign off the case unless there are new developments Shine Mack MD
[2017-07-25 15:48] VITALS: BP 144/63; PULSE 79; TEMP 36.7; O2SAT 99
[2017-07-25] MEDS ORDERED: HydrALAZINE HCL 20 MG/ML VIAL IV. ONE (17:53)
[2017-07-25] MEDS ORDERED: HydrALAZINE HCL 20 MG/ML VIAL IV. PRN (18:00)
[2017-07-25 19:52] VITALS: BP 177/98; PULSE 70; TEMP 36.7; O2SAT 95
[2017-07-25] MEDS: NIFEdipine 30 MG CR TAB PO SCH (21:14)
[2017-07-25] MEDS: ATORVASTATIN 20 MG TAB PO SCH (21:14)
[2017-07-26 00:16] VITALS: BP 156/101; PULSE 68; TEMP 36.6; O2SAT 95
[2017-07-26 03:48] VITALS: BP 149/87; PULSE 70; TEMP 36.6; O2SAT 94
[2017-07-26 07:51] VITALS: BP 144/72; PULSE 84; TEMP 36.8; O2SAT 96
[2017-07-26] MEDS: LISINOPRIL 20 MG TAB PO SCH (08:06)
[2017-07-26] MEDS: HYDROCHLOROTHIAZIDE 25 MG TAB PO SCH (08:06)
[2017-07-26] MEDS: FINASTERIDE 5 MG TAB PO SCH (08:06)
[2017-07-26] MEDS: NIFEdipine 30 MG CR TAB PO SCH (08:07)
[2017-07-26] MEDS: CARVEDILOL 25 MG TAB PO SCH (08:07)
[2017-07-26] MEDS: ASPIRIN 81 MG ECTAB PO SCH (08:07)
[2017-07-26] MEDS: ENOXAPARIN 40 MG/0.4 ML SYR SC SCH (08:08)
[2017-07-26] MEDS: INSULIN ASPART 100 UNITS/ML 3 ML PEN SC SCH ×2 (08:11→12:13)
--- NOTE | 2017-07-26 10:25 | PROGRESS NOTE ---
DATE: 07/26/2017 SUBJECTIVE: The patient is a 62-year-old who presented with hypertensive crisis to the Emergency Department. He had a severe headache over his left eye, which is completely resolved. His blood pressure medications have been adjusted and his hypertension is markedly improved. His echocardiogram does show hypertensive heart disease. He will need to follow up with us as an outpatient. OBJECTIVE: GENERAL: He is alert and oriented, in no acute distress. VITAL SIGNS: Blood pressure is 140/80. Pulse is regular at 70 beats per minute. He is afebrile. HEENT: Normocephalic. Pupils are equal and reactive to light. Extraocular muscles are intact bilaterally. NECK: The neck veins are flat. Carotids have good upstrokes bilaterally without bruits. Thyroid is nonpalpable. RESPIRATORY: Breath sounds equal bilaterally and clear to auscultation. CARDIOVASCULAR: Heart has a regular rhythm. Normal S1, S2. No S3, S4. No cardiac rubs or murmurs. GASTROINTESTINAL: Abdomen is soft, nontender without organomegaly. EXTREMITIES: Free of edema, digit clubbing, or cyanosis. NEUROLOGIC: Grossly intact. SKIN: Warm to touch. LYMPH NODES: Negative to palpation. IMPRESSION: 1. Hypertensive crisis. 2. Hypertensive heart disease. 3. Solitary kidney. 4. Diabetes mellitus. 5. Dyslipidemia. RECOMMENDATIONS: The patient from a cardiac standpoint can be discharged to outpatient followup. I will make arrangements for his followup appointment with us.
--- NOTE | 2017-07-26 10:29 | Progress Note ---
Internal Med Progress Note Date of Service: Jul 26, 2017. Provider Documentation: SUBJECTIVE: The patient was seen and examined Has been stable since yesterday Denies any symptoms BP is well controlled Wants to go home OBJECTIVE: Vital Signs-as noted below Exam: General-No distress at rest Eyes-normal ENT-normal Neck-supple Lungs-Clear to ausucltate bilaterally Heart-Regular,no murmur appreciated Abdomen-Benign,no masses,bowel sound present Extremities-No edema Neuro-AAOx3 Lab data as noted below. ASSESSMENT & PLAN: HYPERTENSIVE URGENCY: -presenting with severe headache, and throbbing pain behind LEFT Eye without any associated symptoms -likely due to noncompliance -CT and MRI of the Head-negative for any acute events and or SAH -CTA head: "moderate focal calcified plaque within the supraclinoid segment of the right internal carotid artery resulting in mild stenosis. Mild calcified plaque within the supraclinoid segment of the left internal carotid artery without significant stenosis." Other remaining vessels patent and free of stenosis -TTE: EF 60-65%, moderate concentric LVH, grade I diastolic dysfunction -Cardiology consulted -appreciate input -Home BP medications started and adjusted with adding new medications -BP is controlled today -Will discharge today HEADACHE: -recurrent even with improvement in BP -sudden onset 2 days ago with no prior history of similar headaches -Neuro consulted, appreciate recommendations, -MRI -neagtive for any SAH -No LP planned as per Neurology -No more pain episode -discharge home today DM TYPE II: -HbA1c: 6.1% -hold metformin -BSG AC and HS -cover with correction scale insulin + Lantus HYPERLIPIDEMIA: -continue statin -lipids: LDL 83, total 152, triglycerides 163 Disposition Home today Vital Signs: Date Time Temp Pulse Resp B/P (MAP) Pulse Ox O2 Delivery O2 Flow Rate FiO2 07/26/17 07:51 36.8 84 18 144/72 (96) 96 07/26/17 04:00 Room Air 07/26/17 03:48 36.6 70 20 149/87 (107) 94 Room Air 07/26/17 00:16 36.6 68 18 156/101 (119) 95 Room Air 07/26/17 00:01 Room Air 07/25/17 20:08 Room Air 07/25/17 19:52 36.7 70 20 177/98 (124) 95 Room Air 07/25/17 16:23 Room Air 07/25/17 15:48 36.7 79 18 144/63 (90) 99 07/25/17 12:00 Room Air 07/25/17 11:30 36.7 74 16 152/63 (92) 95 Lab Results: Results Past 24 Hours Test 07/25/17 11:16 07/25/17 16:14 07/25/17 17:47 07/25/17 20:07 Range/Units Bedside Glucose 101 109 117 99 70-99 mg/dl Test 07/26/17 06:02 Range/Units Bedside Glucose 121 70-99 mg/dl
[2017-07-26 11:26] VITALS: BP 138/65; PULSE 86; TEMP 37; O2SAT 99
[2017-07-26] MEDS ORDERED: NIFE1TAB13 PO (11:58)
--- NOTE | 2017-07-26 12:03 | Discharge Instructions ---
Discharge Instructions Date of Service Jul 26, 2017. Admission Reason for Admission: Headache, Hypertensive Urgency Discharge Discharge Diagnosis / Problem: Hypertensive Crisis,Hypertensive Heart disease, Severe left sided Headache Discharge Goals Goal(s): Prevent Disease Progression Activity Recommendations Activity Limitations: resume your previous activity . Instructions / Follow-Up Instructions / Follow-Up Dr Pemberton on 08/01/17 at 11:00AM (Dr Davila is Out Of Office).Please keep appointment with the Cardiology Current Hospital Diet Patient's current hospital diet: AHA Diet (Heart Healthy), Diabetes Type 2 Diet Discharge Diet Recommended Diet: AHA Diet (Heart Healthy), Diabetes Type 2 Diet Pending Studies Studies pending at discharge: no Laboratory Results Hemoglobin A1c Test 07/24/17 06:20 Range/Units Estimated Average Glucose 128 mg/dl Hemoglobin A1c 6.1 H 4.5-5.6 % Lipid Panel Test 07/24/17 06:20 Range/Units Triglycerides Level 163 H 0-150 mg/dl Cholesterol Level 152 0-200 mg/dl HDL Cholesterol 36 mg/dl Cholesterol/HDL Ratio 4.2 LDL Cholesterol, Calculated 83 mg/dl Medical Emergencies . Who to Call and When: Medical Emergencies: If at any time you feel your situation is an emergency, please call 911 immediately. . Non-Emergent Contact Non-Emergency issues call your: Primary Care Provider . Past History Medical & Surgical History: (1) Hypertensive urgency (2) Headache (3) right Knee DJD . "Provider Documentation" section prepared by Jg Emery. . VTE Core Measure Inpt VTE Proph given/why not?: Enoxaparin (Lovenox)SQ
[2017-07-26 12:14] VITALS: BP 138/65; PULSE 86; TEMP 37; O2SAT 99
--- NOTE | 2017-07-27 08:21 | Discharge Summary ---
Discharge Summary Date of Service Jul 27, 2017. Discharge Summary Admission Date: Jul 24, 2017 at 17:50 Discharge Date: Jul 26, 2017 Discharge Disposition: Home Principal Diagnosis: Hypertensive Crisis,Hypertensive Heart disease,Severe left sided Headache Secondary Diagnoses/Problems: Please see H&P and Hospital Progress note Consultations: Cardiology Na Neurology Medication Reconciliation New Medications: Nifedipine (Adalat cc) 30 Mg Tab 30 MG PO BID for 30 Days, #60 TAB Continued Medications: Aspirin (Aspirin Ec) 81 Mg Tab 81 MG PO DAILY Atorvastatin (Lipitor) 20 Mg Tab 20 MG PO HS, TAB Carvedilol (Coreg) 25 Mg Tab 25 MG PO BID, TAB Finasteride (Proscar) 5 Mg Tab 5 MG PO DAILY, TAB Lisinopril & Hydrochlorothiazi (Zestoretic) 1 Tab Tab 1 TAB PO BID DOSE 20/12.5MG Metformin Hcl (Glucophage) 500 Mg Tab 500 MG PO BID, TAB Terazosin (Hytrin) 5 Mg Cap 5 MG PO HS, CAP Tramadol (Ultram) 50 Mg Tab 25-50 MG PO Q8H PRN for Pain, TAB Discontinued Medications: Clonidine Hcl (Catapres) 0.1 Mg Tab 0.1 MG PO QPM Clonidine Hcl (Catapres) 0.1 Mg Tab 0.2 MG PO QAM Verapamil (Calan) 40 Mg Tab 40 MG PO BID, TAB Admission Information HPI (per Admitting provider): Patient is a 62 yo male who presented to the ER today for complaints of a severe TONG and throbbing sensation behind his eyes that awoke him from sleep. He reports never having these types of symptoms before. He states he went to sleep with a mild TONG around 10 and by 12 AM he woke up with sharp stabbing type pain behind his eyes and a severe TONG and came to the ER right away. He denies any recent medication changes but does admit he does not take his medications the way he should, he states alot of times he just forgets it, he often misses at least one dose a day and his also states this has been an ongoing issue and she is always reminding him to take his pills. He denies any visual changes of blurry or double vision, denies any photophobia. His eye pain has improved since being in the ER. He denies any other associated symptoms, but he does mention that unrelated to his presenting problem that he does experience chest pressure and SOB with exertion and has also noticed decreasing tolerance to exertional activities. He denies any lightheadedness/dizziness, N/V/D, abdominal pain, palpitations, diaphoresis, fever, chills. rigors. He states he had a cough and cold last week but it has mostly resolved and he did not take any OTC medications for the symptoms. Past Medical/Surgical History PAST MEDICAL HISTORY: -Hyperlipidemia -Hypertension. -Diabetes mellitus -Obesity with a BMI of 37 -Single kidney due to prior nephrectomy -Nephrolithiasis (in the kidney that was removed) -History of melanoma -Osteoarthritis PAST SURGICAL HISTORY: -Nephrectomy in 2001. -Herniorrhaphy. -Shoulder surgery. -TKA -Tonsillectomy and adenoidectomy Social History Smoking Status: Former Smoker (quit smoking about 15 years ago) Smokeless Tobacco Use: Yes (1 can of snuff a day for 15 years) Alcohol Use: occasionally Drug Use: none Marital Status: Housing status: lives with family Occupational Status: employed Immunizations History of Influenza Vaccine: No History of Tetanus Vaccine?: Yes Tetanus Immunization Date: Aug 11, 2004 History of Pneumococcal: No History of Hepatitis B Vaccine: No Multi-Drug Resistant Organisms History of MDRO: No Allergies Coded Allergies: No Known Allergies (Verified , 10/21/16) Home Medications Scheduled Aspirin (Aspirin Ec), 81 MG PO DAILY Atorvastatin (Lipitor), 20 MG PO HS Carvedilol (Coreg), 25 MG PO BID Clonidine Hcl (Catapres), 0.1 MG PO QPM Clonidine Hcl (Catapres), 0.2 MG PO QAM Finasteride (Proscar), 5 MG PO DAILY Lisinopril & Hydrochlorothiazi (Zestoretic), 1 TAB PO BID Metformin Hcl (Glucophage), 500 MG PO BID Terazosin (Hytrin), 5 MG PO HS Verapamil (Calan), 40 MG PO BID Scheduled PRN Tramadol (Ultram), 25-50 MG PO Q8H PRN for Pain Review of Systems A full 10 systems were reviewed with the patient, the pertinent positives and negatives are in the HPI, all other ROS conducted were negative Physical Ex - H&P Physical Exam Vital Signs Date Time Temp Pulse Resp B/P (MAP) Pulse Ox O2 Delivery O2 Flow Rate FiO2 07/23/17 08:45 72 19 96 07/23/17 08:40 186/105 07/23/17 08:31 212/129 07/23/17 08:20 182/106 07/23/17 08:15 76 18 97 07/23/17 08:10 169/97 07/23/17 08:00 160/96 07/23/17 07:50 180/98 07/23/17 07:45 74 22 94 07/23/17 07:40 175/105 07/23/17 07:30 185/99 07/23/17 07:20 191/99 07/23/17 07:15 75 15 95 07/23/17 07:10 187/109 07/23/17 07:05 96 Room Air 07/23/17 07:00 162/90 07/23/17 06:51 190/94 07/23/17 06:45 73 20 96 07/23/17 06:40 164/91 07/23/17 06:30 189/87 07/23/17 06:20 170/98 07/23/17 06:15 74 15 96 07/23/17 06:14 70 18 187/88 Room Air 07/23/17 06:10 187/88 07/23/17 06:00 201/112 07/23/17 05:50 188/106 07/23/17 05:45 75 16 95 07/23/17 05:40 210/107 07/23/17 05:30 202/113 07/23/17 05:21 83 208/104 96 Room Air 07/23/17 05:21 208/104 07/23/17 05:15 77 23 96 07/23/17 05:11 179/113 07/23/17 05:10 179/113 07/23/17 05:01 206/99 07/23/17 05:00 206/99 07/23/17 04:56 211/98 07/23/17 04:45 71 17 212/107 95 07/23/17 04:40 211/112 07/23/17 04:20 219/106 07/23/17 04:15 64 18 94 07/23/17 04:10 67 15 235/122 93 07/23/17 04:00 68 16 220/120 96 07/23/17 03:50 67 15 226/114 94 07/23/17 03:44 71 16 221/114 97 Room Air 07/23/17 03:31 72 07/23/17 03:31 69 18 224/107 96 07/23/17 03:22 72 18 233/125 95 Room Air 07/23/17 03:13 95 Room Air 07/23/17 02:54 36.9 75 18 246/132 95 Room Air General Appearance: WD/WN, no apparent distress Head: normocephalic, atraumatic Eyes: PERRL, EOMI, sclerae normal, + pertinent finding (conjunctival erythema in both eyes) ENT: normal ENT inspection, hearing grossly normal, pharynx normal Neck: supple, no JVD, no carotid bruits, trachea midline Respiratory/Chest: chest non-tender, lungs clear, normal breath sounds, no respiratory distress Cardiovascular: regular rate, rhythm, no edema, no gallop, no JVD, no murmur, normal peripheral pulses Abdomen/GI: normal bowel sounds, non tender, soft, no organomegaly, + hepatomegaly (slight), + pertinent finding (no splenomegaly, no hernia or peritonitis noted) Back: normal inspection, no CVA tenderness, no muscle spasm Extremities/Musculoskelatal: no calf tenderness, normal capillary refill, no pedal edema Neurologic/Psych: no motor/sensory deficits, alert, normal mood/affect, oriented x 3 Skin: normal color, warm/dry, no rash Lymphatic: no adenopathy Diagnostics - H&P Diagnostics Laboratory Results Results Past 24 Hours Test 07/23/17 03:05 Range/Units White Blood Count 10.30 4.8-10.8 K/uL Red Blood Count 5.96 4.7-6.1 M/uL Hemoglobin 15.7 14.0-18.0 g/dL Hematocrit 47.5 42-52 % Mean Corpuscular Volume 79.7 80-100 fL Mean Corpuscular Hemoglobin 26.3 25-34 pg Mean Corpuscular Hemoglobin Concent 33.1 32-36 g/dl Platelet Count 276 130-400 K/uL Mean Platelet Volume 10.3 7.4-10.4 fL Neutrophils (%) (Auto) 54.7 % Lymphocytes (%) (Auto) 31.8 % Monocytes (%) (Auto) 10.1 % Eosinophils (%) (Auto) 2.5 % Basophils (%) (Auto) 0.5 % Neutrophils # (Auto) 5.63 1.4-6.5 K/uL Lymphocytes # (Auto) 3.28 1.2-3.4 K/uL Monocytes # (Auto) 1.04 0.11-0.59 K/uL Eosinophils # (Auto) 0.26 0-0.5 K/uL Basophils # (Auto) 0.05 0-0.2 K/uL RDW Standard Deviation 40.7 36.4-46.3 fL RDW Coefficient of Variation 14.1 11.5-14.5 % Immature Granulocyte % (Auto) 0.4 % Immature Granulocyte # (Auto) 0.04 0.00-0.02 K/uL Prothrombin Time 10.7 9.0-12.0 SECONDS Prothromb Time International Ratio 1.0 0.9-1.1 Activated Partial Thromboplast Time 30.1 21.0-31.0 SECONDS Partial Thromboplastin Ratio 1.2 Sodium Level 137 136-145 mmol/L Potassium Level 4.2 3.5-5.1 mmol/L Chloride Level 105 98-107 mmol/L Carbon Dioxide Level 26 21-32 mmol/L Anion Gap 6.0 3-11 mmol/L Blood Urea Nitrogen 14 7-18 mg/dl Creatinine 1.00 0.60-1.40 mg/dl Est Creatinine Clear Calc Drug Dose 92.8 ml/min Estimated GFR () 93.1 Estimated GFR (Non- 80.3 BUN/Creatinine Ratio 14.5 10-20 Random Glucose 142 70-99 mg/dl Calcium Level 8.5 8.5-10.1 mg/dl Total Bilirubin 0.4 0.2-1 mg/dl Direct Bilirubin < 0.1 0-0.2 mg/dl Aspartate Amino Transf (AST/SGOT) 22 15-37 U/L Alanine Aminotransferase (ALT/SGPT) 29 12-78 U/L Alkaline Phosphatase 80 45-117 U/L Total Creatine Kinase 193 39-308 U/L Creatine Kinase MB 2.5 0.5-3.6 ng/ml Creatine Kinase MB Ratio 1.3 0-3.0 Troponin I < 0.015 0-0.045 ng/ml Total Protein 7.5 6.4-8.2 gm/dl Albumin 3.9 3.4-5.0 gm/dl Impression - H&P Impression Assessment and Plan HTN URGENCY: -presenting with severe headache, and throbbing pain behind eyes, now improving -likely related to missing doses of medications and recent illness -CT head: negative for acute intracranial process -CTA head: "moderate focal calcified plaque within the supraclinoid segment of the right internal carotid artery resulting in mild stenosis. Mild calcified plaque within the supraclinoid segment of the left internal carotid artery without significant stenosis." Other remaining vessels patent and free of stenosis -will obtain TTE -will start patients home medications and monitor BP -at home is supposed to be on clonidine, lisinopril/HCTZ, and coreg -headache is improving, continue tylenol and tramadol PRN -monitor in tele -check lipid panel DM TYPE II: -check HbA1c -hold metformin -BSG AC and HS -cover with correction scale insulin + lantus HYPERLIPIDEMIA: -continue statin, check lipids Advanced Directives Existing Living Will: No Existing Power of Controlled Atmospheric Furnace Brazer: No VTE Prophylaxis VTE Risk Assessment Done? Y/N: Yes Risk Level: Moderate Physical Exam (per Admitting): General Appearance: WD/WN, no apparent distress Head: normocephalic, atraumatic Eyes: PERRL, EOMI, sclerae normal, + pertinent finding (conjunctival erythema in both eyes) ENT: normal ENT inspection, hearing grossly normal, pharynx normal Neck: supple, no JVD, no carotid bruits, trachea midline Respiratory/Chest: chest non-tender, lungs clear, normal breath sounds, no respiratory distress Cardiovascular: regular rate, rhythm, no edema, no gallop, no JVD, no murmur , normal peripheral pulses Abdomen/GI: normal bowel sounds, non tender, soft, no organomegaly, + hepatomegaly (slight), + pertinent finding (no splenomegaly, no hernia or peritonitis noted) Back: normal inspection, no CVA tenderness, no muscle spasm Extremities/Musculoskelatal: no calf tenderness, normal capillary refill, no pedal edema Neurologic/Psych: no motor/sensory deficits, alert, normal mood/affect, oriented x 3 Skin: normal color, warm/dry, no rash Lymphatic: no adenopathy Hospital Course HYPERTENSIVE URGENCY: -presenting with severe headache, and throbbing pain behind LEFT Eye without any associated symptoms -likely due to noncompliance -CT and MRI of the Head-negative for any acute events and or SAH -CTA head: "moderate focal calcified plaque within the supraclinoid segment of the right internal carotid artery resulting in mild stenosis. Mild calcified plaque within the supraclinoid segment of the left internal carotid artery without significant stenosis." Other remaining vessels patent and free of stenosis -TTE: EF 60-65%, moderate concentric LVH, grade I diastolic dysfunction -Cardiology consulted -appreciate input -Home BP medications started and adjusted with adding new medications -BP is controlled today -Will discharge today HEADACHE: -recurrent even with improvement in BP -sudden onset 2 days ago with no prior history of similar headaches -Neuro consulted, appreciate recommendations, -MRI -neagtive for any SAH -No LP planned as per Neurology -No more pain episode -discharge home today DM TYPE II: -HbA1c: 6.1% -hold metformin -BSG AC and HS -cover with correction scale insulin + Lantus HYPERLIPIDEMIA: -continue statin -lipids: LDL 83, total 152, triglycerides 163 Disposition Home today Total time spent on discharge = 35 minutes This includes examination of the patient, discharge planning, medication reconciliation, and communication with other providers. Discharge Instructions Date of Service Jul 26, 2017. Admission Reason for Admission: Headache, Hypertensive Urgency Discharge Discharge Diagnosis / Problem: Hypertensive Crisis,Hypertensive Heart disease, Severe left sided Headache Discharge Goals Goal(s): Prevent Disease Progression Activity Recommendations Activity Limitations: resume your previous activity . Instructions / Follow-Up Instructions / Follow-Up Dr Pemberton on 08/01/17 at 11:00AM (Dr Davila is Out Of Office).Please keep appointment with the Cardiology Current Hospital Diet Patient's current hospital diet: AHA Diet (Heart Healthy), Diabetes Type 2 Diet Discharge Diet Recommended Diet: AHA Diet (Heart Healthy), Diabetes Type 2 Diet Pending Studies Studies pending at discharge: no Laboratory Results Hemoglobin A1c Test 07/24/17 06:20 Range/Units Estimated Average Glucose 128 mg/dl Hemoglobin A1c 6.1 H 4.5-5.6 % Lipid Panel Test 07/24/17 06:20 Range/Units Triglycerides Level 163 H 0-150 mg/dl Cholesterol Level 152 0-200 mg/dl HDL Cholesterol 36 mg/dl Cholesterol/HDL Ratio 4.2 LDL Cholesterol, Calculated 83 mg/dl Medical Emergencies . Who to Call and When: Medical Emergencies: If at any time you feel your situation is an emergency, please call 911 immediately. . Non-Emergent Contact Non-Emergency issues call your: Primary Care Provider . Past History Medical & Surgical History: (1) Hypertensive urgency (2) Headache (3) right Knee DJD . "Provider Documentation" section prepared by Jg Emery. . VTE Core Measure Inpt VTE Proph given/why not?: Enoxaparin (Lovenox)SQ <Electronically signed by Jg Emery M.D.> Signed: 07/26/17 120 Additional Copies To Lukas Davila M.D. (MEDICAL)
== END 2017-07-26 12:50 | disposition home or self-care (01) | DRG 305 ==
LOC: C.EDB 02:50 → C.2T 08:05 → ENRESERV 08:39 → OBSVTOIN 07-24 17:50
PROVIDERS: ADMIT Internal Medicine; ATTEND Internal Medicine
DX: I16.0 Hypertensive urgency (principal); I11.9 Hypertensive heart disease without heart failure; E78.5 Hyperlipidemia, unspecified; E11.9 Type 2 diabetes mellitus without complications; Z90.5 Acquired absence of kidney; Z79.82 Long term (current) use of aspirin; E66.9 Obesity, unspecified; Z68.37 Body mass index [BMI] 37.0-37.9, adult; Z85.820 Personal history of malignant melanoma of skin; Z87.891 Personal history of nicotine dependence; Z91.19 Patient's noncompliance with other medical treatment and regimen

== ENCOUNTER 2019-04-26 20:27 | Inpatient (IN) ==
[2019-04-26] MEDS ORDERED: ONDANSETRON INJ 2 MG/ML 2 ML VIAL IV STA (20:48)
[2019-04-26] MEDS ORDERED: HYDROmorphone INJ 0.5 MG/0.5 ML SYR IV PRN (20:48)
[2019-04-26 21:29] LABS: Basophils # (auto) 0.02 K/uL (0-0.2); Basophils % (auto) 0.1 %; Eosinophils # (auto) 0.19 K/uL (0-0.5); Eosinophils % (auto) 1.3 %; Hematocrit (blood only) 40.9 % (42-52); Hemoglobin 13.7 g/dL (14.0-18.0); Immature Granulocytes # (auto) 0.07 K/uL (0.00-0.02); Immature Granulocytes % (auto) 0.5 %; Lymphocytes # (auto) 2.58 K/uL (1.2-3.4); Lymphocytes % (auto) 17.3 %; Mean Corpuscular Hgb Conc 33.5 g/dL (32-36); Mean Corpuscular Volume 79.9 fL (80-100); Mean Platelet Volume 10.6 fL (7.4-10.4); Monocytes # (auto) 1.43 K/uL (0.11-0.59); Monocytes % (auto) 9.6 %; Neutrophils # (auto) 10.62 K/uL (1.4-6.5); Neutrophils % (auto) 71.2 %; Platelet Count 235 K/uL (130-400); RDW Coefficient of Variation 14.2 % (11.5-14.5); RDW Standard Deviation 41.1 fL (36.4-46.3); Red Blood Count 5.12 M/uL (4.7-6.1); White Blood Count 14.91 K/uL (4.8-10.8)
[2019-04-26 21:34] LABS: iSTAT Hemoglobin 14.3 g/dl (14.0-18.0); iSTAT Ionized Calcium 1.15 mmol/l (1.12-1.32)
[2019-04-26 21:42] LABS: Appearance Urine Cloudy (Clear); Bacteria Urine Automated Negative (Negative); Bilirubin Urine Negative (Negative); Color Urine Yellow; Glucose Urine UA Negative (Negative); Ketones Urine Trace (Negative); Leukocyte Esterase Urine Negative (Negative); Nitrite Urine Negative (Negative); Protein Urine Negative (Negative); Specific Gravity Urine 1.024 (1.000-1.030); Urobilinogen Urine Negative (Negative)
[2019-04-26 21:49] LABS: Albumin Level 3.5 gm/dl (3.4-5.0); BUN Creatinine Ratio 11.3 (10-20); Bilirubin,Total 0.4 mg/dl (0.2-1); Creatinine Clr Calc Pharmacy 72.8 ml/min; Est GFR (African American) 71.3; Est GFR (Non-African American) 61.5; Globulin 3.5 gm/dl (2.5-4.0)
[2019-04-26 21:56] LABS: Potassium 4.2 mmol/L (3.5-5.1)
[2019-04-26] MEDS ORDERED: SODIUM CHLORIDE 0.9% 1000ML 1,000 ML IV ONE (21:56)
[2019-04-26] MEDS ORDERED: IOVERSOL 100ml IV PRN (22:16)
--- NOTE | 2019-04-26 22:34 | CT Scan Report ---
CT abd pelvis IV con only CT DOSE: 1568.94 mGy.cm HISTORY: half dye load, pt has one kidney; RLQ abd pain TECHNIQUE: Multiaxial CT images of the abdomen and pelvis were performed following the use of intrave nous contrast. A dose lowering technique was utilized adhering to the principles of ALARA. COMPARISON STUDY: 11/04/2018 FINDINGS: Lung bases remain clear. Liver spleen and pancreas are unremarkable. Gallstones are present in the region of the gallbladder neck. Moderate shows no evidence for distention. Right kidney enhances uniformly. An extrarenal pelvis is present. There is no evidence for hydronephr osis. Bilateral adrenal adenomas versus hyperplastic changes stable. Preoperative findings of a prior ventr al hernia repair. There are findings of multifocal right central sigmoid diverticulitis. This is sachin lar compared to the prior study. There are findings of wall thickening and moderate pericolonic infil trative change of the right central sigmoid with an additional area of wall thickening and mild peric olonic change of the mid sigmoid. No evidence for abscess collection or obstruction. The appendix is normal. There is no evidence for f ree air or pneumatosis. IMPRESSION: 1. Multifocal right central proximal and mid sigmoid acute diverticulitis. 2. Mild to moderate pericolonic infiltrative change with no evidence for abscess collection or obstru ction. 3. Normal appendix. 4. This appearance is similar as compared to the prior exam. The above report was generated using voice recognition software. It may contain grammatical, syntax or spelling errors. Electronically signed by: Mateo Phillips M.D. 04/26/2019 10:31 PM
[2019-04-26] MEDS ORDERED: AMOXICILLIN/CLAVULANATE 875 MG TAB PO ONE (22:54)
[2019-04-26] MEDS ORDERED: AMOXICILLIN/CLAVULANATE 875MG HOME PACK PO ONE (22:54)
[2019-04-26] MEDS ORDERED: METOCLOPRAMIDE HCL INJ 5 MG/ML 2 ML VIAL IV STA (23:22)
--- NOTE | 2019-04-27 00:16 | History & Physical Report ---
Date of Service 63-year-old male with past medical history of coronary disease, hyperlipidemia, diverticulitis, degenerative joint disease, hypertension, diabetes type 2, obes ity with BMI of 39, and kidney stones who presents with right lower quadrant pain which started today. He has had bouts of diverticulitis in the past and that was found on CAT scan. He says the worst pain of his life. He was also found to have a leukocytosis and will be brought in for IV antibiotics. He notes nausea but no vomiting, denies any fevers chills or chest pain. Past medical historyCAD, hyperlipidemia, diverticulitis, degenerative joint disease, hypertension, type 2 diabetes, obesity with a BMI 39, kidney stones. 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 Inpatient status likely be here more than 2 midnights. ROS-No Headache, No Visual Changes, positive nausea, No Vomiting, No Fever, No Chills, No Neck Pain or Stiffness, No Chest Pain, No Palpitations, No SOB, No TIDWELL, No Cough, No Sputum, No Wheezing, positive right lower quadrant abdominal Pain, No Diarrhea, No Hematemesis, No Hemoptysis, No Unexpected Weight Loss, No Flank pain, No Melena, No Hematochezia, No Frequency, No Urgency, No Burning, No Hematuria, No Rashes, No Diaphoresis. Appetite is Normal Physical Exam Gen-AAO x 3, NAD, Afebrile, obese Head-NCAT, EOMI, PERRLA, Anicteric Sclera, No Posterior Pharyngeal Erythema Neck-Supple, No JVD, No Thyromegaly, No Masses, No LAD, No Bruits Lungs-Clear to Auscultation Bilaterally, No Rales, No Rhonchi, No Wheezing, No Crepitus Chest-No S4, +S1, +S2, No S3, No Murmurs, No Rubs, No Gallops, No Ectopy Abdomen-Soft, Bowel Sounds Present, right lower quadrant is tender, obese, non Distended, No Hepatomegaly, No Splenomegaly, No Palpable Masses, No Rebound, No Rigidity, mild guarding Musculoskeletal-Full Range of Motion Bilaterally, No CVAT Extremities-No Cyanosis, No Clubbing, No Edema Nuero-Cranial Nerves II-XII grossly intact, Motor WNL, DTRs WNL, Strength WNL, Non Focal Psych-Normal Mood History of Present Illness Primary Care Provider: Jeet Carter MD Allergies Allergy/AdvReac Type Severity Reaction Status Date / Time No Known Allergies Allergy Verified 04/26/19 21:40 Home Medications Home Medications Medication Instructions Recorded Confirmed Type buspirone 5 mg PO TID PRN 06/15/18 04/26/19 History hydrochlorothiazide 12.5 mg PO QAM 06/15/18 04/26/19 History lisinopril 40 mg PO DAILY 06/15/18 04/26/19 History nifedipine 90 mg PO DAILY 06/15/18 04/26/19 History aspirin 81 mg PO DAILY 04/26/19 04/26/19 History atorvastatin 20 mg PO HS 04/26/19 04/26/19 History carvedilol 25 mg PO BID 04/26/19 04/26/19 History finasteride 5 mg PO DAILY 04/26/19 04/26/19 History metformin 500 mg PO BID 04/26/19 04/26/19 History ranolazine 1,000 mg PO Q12H 04/26/19 04/26/19 History tramadol 25 - 50 mg PO TID PRN 04/26/19 04/26/19 History Past Med/Surg History Medical History Diabetes mellitus, type 2 Hyperlipidemia Hypertension Diverticular disease History of hypotension Social History Preferred Language: Kazakh Communication Ability: Effective Beliefs That Will Affect Care: None Current Living Situation: Spouse Feels Safe at Home: Yes Smoking Status: Never smoker Cigarettes Per Day: 40 Hx Alcohol Use: Yes Hx Substance Use: No Results & Data Vital Signs (Past 12 Hours) Vital Signs Temp Pulse Pulse Resp BP BP Pulse Ox 04/26/19 22:54 20 191/109 H 93 04/26/19 22:05 83 18 199/110 H 93 04/26/19 21:56 89 20 188/105 H 93 04/26/19 20:48 94 04/26/19 20:32 37.1 C 109 H 20 204/107 H 95 Allergies No Known Allergies Allergy (Verified 04/26/19 21:40) Height/Weight/Isolation Height 5 ft 7 in Weight 112 kg Chemistry 04/26/19 21:13 Sodium 137 Potassium 4.2 Chloride 105 Carbon Dioxide 27 Anion Gap 6.0 BUN 14 Creatinine 1.24 Glucose 111 H Urinalysis 04/26/19 21:15 Urine Color Yellow Urine Appearance Cloudy A Urine pH 5.0 Ur Specific [place] 1.024 Urine Protein Negative Urine Glucose (UA) Negative Urine Ketones Trace H Urine Blood Negative Urine Nitrite Negative Urine Bilirubin Negative
[2019-04-27] MEDS ORDERED: ONDANSETRON INJ 2 MG/ML 2 ML VIAL IV PRN (01:15)
[2019-04-27] MEDS ORDERED: POLYETHYLENE (MIRALAX) 17 GM PACK PO PRN (01:15)
[2019-04-27] MEDS ORDERED: CARBOHYDRATES FOR HYPOGLYCEMIA PO PRN (01:15)
[2019-04-27] MEDS ORDERED: PIPERACILL/TAZOBAC CONSULT ACTIVE PRN (01:15)
[2019-04-27] MEDS ORDERED: TRAMADOL HCL 50 MG TABLET PO PRN (01:15)
[2019-04-27] MEDS ORDERED: GLUCOSE 40% GEL 15 GM TUBE PO PRN (01:15)
[2019-04-27] MEDS ORDERED: DEXTROSE 50% 50 ML SYRINGE IV PRN (01:15)
[2019-04-27] MEDS ORDERED: GLUCAGON FOR INJ 1 MG VIAL SQ PRN (01:15)
[2019-04-27] MEDS ORDERED: GLUCOSE 10 TABS/TUBE PO PRN (01:15)
[2019-04-27] MEDS ORDERED: ACETAMINOPHEN 325 MG TAB PO PRN (01:15)
[2019-04-27] MEDS ORDERED: PHARMACY GLYCEMIC MGMT CONSULT PRN (02:25)
--- NOTE | 2019-04-27 02:26 | Emergency Department Note ---
Entered by Yemi Morales acting as a scribe for Roe Owusu MD History of Present Illness General Chief complaint: GI Assessment Stated complaint: DIVERTICULITIS Time Seen by Provider: 04/26/19 20:40 Source: patient History of Present Illness Provider complaint: Abd pain Onset (ago): hour(s) Location: abdomen Maximum Pain Intensity: 7 Current Pain Intensity: 7 Quality: + other (worsening) Relieved By: + none Associated symptoms: + denies other symptoms (blood in stool) Treatments prior to arrival: none The patient is a 63 year old male with a hx of HLD, HTN, and diverticulitis who presents to the Emergency Room with complaints of worsening abdominal pain that began this morning, several hours ago. The patient notes that he has had this pain before, but the pain is worse than usual. He states that he was diagnosed with diverticulitis previously. He rates his pain as a 7/10. He denies taking anything for pain. He also denies any blood in his stool. Home Medications Home Medications Medication Instructions Recorded Confirmed Type buspirone 5 mg PO TID PRN 06/15/18 04/26/19 History hydrochlorothiazide 12.5 mg PO QAM 06/15/18 04/26/19 History lisinopril 40 mg PO DAILY 06/15/18 04/26/19 History nifedipine 90 mg PO DAILY 06/15/18 04/26/19 History aspirin 81 mg PO DAILY 04/26/19 04/26/19 History atorvastatin 20 mg PO HS 04/26/19 04/26/19 History carvedilol 25 mg PO BID 04/26/19 04/26/19 History finasteride 5 mg PO DAILY 04/26/19 04/26/19 History metformin 500 mg PO BID 04/26/19 04/26/19 History ranolazine 1,000 mg PO Q12H 04/26/19 04/26/19 History tramadol 25 - 50 mg PO TID PRN 04/26/19 04/26/19 History Allergies Allergy/AdvReac Type Severity Reaction Status Date / Time No Known Allergies Allergy Verified 04/26/19 21:40 Past Med/Surg History Medical History Diabetes mellitus, type 2 Hyperlipidemia Hypertension Diverticular disease History of hypotension Social History Preferred Language: Mosotho Communication Ability: Effective Licensed Esthetician Required: No Beliefs That Will Affect Care: None Current Living Situation: Spouse Current Living Situation Comment: House Other Information That Helps Us Care for You: No Feels Safe at Home: Yes Safety Concerns: Feels Safe At This Time Smoking Status: Never smoker Cigarettes Per Day: 40 Hx Alcohol Use: Yes Alcohol type: beer Hx Substance Use: No Review of Systems See HPI for pertinent positives & negatives. and A total of 10 systems reviewed and were otherwise negative Physical Exam Vital Signs Vital Signs - 24 hr 04/26/19 20:32 04/26/19 20:48 04/26/19 21:56 Temperature 37.1 C Temperature Source Oral Sepsis Recent Fever Within 48 Hours No Sepsis Action Taken by Nursing No Action Required Pulse Rate 109 H Pulse Rate [Apical] 89 Pulse Rhythm Regular Pulse Rhythm [Apical] Regular Pulse Strength Normal Pulse Strength [Apical] Normal Respiratory Rate 20 20 Respiratory Effort / Characteristics Non-Labored Spontaneous Non-Labored Spontaneous Respiratory Depth Normal Normal Blood Pressure 204/107 H Blood Pressure [Left Arm] 188/105 H Blood Pressure Mean 139 Blood Pressure Mean [Left Arm] 132 Blood Pressure Position Sitting Pulse Oximetry 95 94 93 Oxygen Delivery Method Room Air Room Air Room Air 04/26/19 22:05 04/26/19 22:54 Temperature Temperature Source Sepsis Recent Fever Within 48 Hours Sepsis Action Taken by Nursing Pulse Rate Pulse Rate [Apical] 83 Pulse Rhythm Pulse Rhythm [Apical] Regular Regular Pulse Strength Pulse Strength [Apical] Normal Normal Respiratory Rate 18 20 Respiratory Effort / Characteristics Non-Labored Spontaneous Respiratory Depth Normal Normal Blood Pressure Blood Pressure [Left Arm] 199/110 H 191/109 H Blood Pressure Mean Blood Pressure Mean [Left Arm] 139 136 Blood Pressure Position Pulse Oximetry 93 93 Oxygen Delivery Method Room Air Room Air GENERAL: Awake, alert, well-appearing, in no acute distress HENT: Normocephalic, atraumatic. Oropharynx unremarkable. EYES: Normal conjunctiva. Sclera non-icteric. NECK: Supple. No nuchal rigidity. FROM. No JVD. RESPIRATORY: Clear to auscultation. CARDIAC: Regular rate, normal rhythm. Extremities warm and well perfused. Pulses equal. ABDOMEN: Soft, non-distended. tender to the RLQ, positive guarding, positive rebound. No masses. RECTAL: Deferred. MUSCULOSKELETAL: Chest examination reveals no tenderness. The back is symmetrical on inspection without obvious abnormality. There is no CVA te nderness to palpation. No joint edema. LOWER EXTREMITIES: Calves are equal size bilaterally and non-tender. No edema. No discoloration. NEURO: Normal sensorium. No sensory or motor deficits noted. SKIN: No rash or jaundice noted. Course 2041: The patient was evaluated in room B03. A complete history and physical exam was performed. 2317: I [facility] the [facility] He will evaluate the patient. Administered Medications Discontinued Medications Amoxicillin/Clavulanate Potassium (Augmentin 875mg) 1 tab PO NOW ONE Stop: 04/26/19 22:55 Last Admin: 04/26/19 23:53 Dose: 1 tab Documented by: [id number] Amoxicillin/Clavulanate Potassium (Augmentin 875mg Homepack) 1 homepack PO ONE ONE Stop: 04/26/19 22:55 Last Admin: 04/27/19 00:33 Dose: Not Given Documented by: [id number] Hydromorphone HCl (Dilaudid) 0.5 mg IV Q15M PRN PRN Reason: Pain Stop: 05/10/19 20:47 Last Admin: 04/26/19 21:27 Dose: 0.5 mg Documented by: [id number] Sodium Chloride (Nss 1000ml) 1,000 mls @ 999 mls/hr IV .Q1H1M ONE Stop: 04/26/19 22:56 Last Infusion: 04/26/19 23:06 Dose: 0 mls/hr Documented by: [id number] Admin: 04/26/19 22:05 Dose: 999 mls/hr Documented by: [id number] Ioversol (Optiray 320 100ml) 50 ml IV ONCE PRN PRN Reason: Interaction Checking Stop: 04/30/19 22:15 Last Admin: 04/26/19 22:16 Dose: 1 ml Documented by: [id number] Metoclopramide HCl (Reglan) 10 mg IV NOW STA Stop: 04/26/19 23:23 Last Admin: 04/27/19 00:34 Dose: Not Given Documented by: [id number] Ondansetron HCl (Zofran) 4 mg IV NOW STA Stop: 04/26/19 20:49 Last Admin: 04/26/19 21:28 Dose: 4 mg Documented by: [id number] Medical Decision Making Differential Diagnosis Differential diagnosis: Etiologies such as appendicitis, diverticulitis, PUD, biliary pathology, UTI, pancreatitis, obstruction, mesenteric ischemia, aortic pathology, infections, inflammatory bowel disease, renal colic, as well as others were entertained. Medical Records Attestation: I reviewed the patient's medical records. Home Medications Current Medication List: was personally reviewed by me Laboratory Data Attestation: I reviewed the patient's lab results. Result diagrams: 04/26/19 21:13 04/26/19 21:13 Lab Results 04/26/19 04/26/19 04/26/19 Range/Units 21:13 21:13 21:15 WBC 14.91 H (4.8-10.8) K/uL RBC 5.12 (4.7-6.1) M/uL Hgb 13.7 L (14.0-18.0) g/dL POC Hgb (14.0-18.0) g/dl Hct 40.9 L (42-52) % POC Hct (42-52) % MCV 79.9 L (80-100) fL MCH 26.8 (25-34) pg MCHC 33.5 (32-36) g/dL RDW Std Deviation 41.1 (36.4-46.3) fL RDW Coeff of Gage 14.2 (11.5-14.5) % Plt Count 235 (130-400) K/uL MPV 10.6 H (7.4-10.4) fL Immature Gran % (Auto) 0.5 % Neut % (Auto) 71.2 % Lymph % (Auto) 17.3 % Sierra % (Auto) 9.6 % Eos % (Auto) 1.3 % Baso % (Auto) 0.1 % Immature Gran # (Auto) 0.07 H (0.00-0.02) K/uL Neut # (Auto) 10.62 H (1.4-6.5) K/uL Lymph # (Auto) 2.58 (1.2-3.4) K/uL Sierra # (Auto) 1.43 H (0.11-0.59) K/uL Eos # (Auto) 0.19 (0-0.5) K/uL Baso # (Auto) 0.02 (0-0.2) K/uL POC Sodium (135-144) mEq/L Sodium 137 (136-145) mmol/L POC Potassium (3.3-5.0) mEq/L Potassium 4.2 (3.5-5.1) mmol/L POC Chloride (101-112) mEq/L Chloride 105 (98-107) mmol/L Carbon Dioxide 27 (21-32) mmol/L POC Total CO2 (24-31) mEq/l Anion Gap 6.0 (3-11) POC Anion Gap (16-25) mmol/L POC BUN (7-18) mg/dl BUN 14 (7-18) mg/dl Creatinine 1.24 (0.6-1.4) mg/dl POC Creatinine (0.6-1.3) mg/dl Est Cr Clr Drug Dosing 72.8 ml/min Est GFR ( Amer) 71.3 Est GFR (Non-Af Amer) 61.5 BUN/Creatinine Ratio 11.3 (10-20) Glucose 111 H (70-99) mg/dl POC Glucose (other) (70-99) mg/dl Calcium 9.0 (8.5-10.1) mg/dl POC Ioniz Calcium Alfonso (1.12-1.32) mmol/l Total Bilirubin 0.4 (0.2-1) mg/dl AST 16 (15-37) U/L ALT 25 (12-78) U/L Alkaline Phosphatase 77 (45-117) U/L Total Protein 7.0 (6.4-8.2) gm/dl Albumin 3.5 (3.4-5.0) gm/dl Globulin 3.5 (2.5-4.0) gm/dl Albumin/Globulin Ratio 1.0 (0.9-2) Lipase 190 (73-393) U/L Urine Color Yellow Urine Appearance Cloudy A (Clear) Urine pH 5.0 (4.5-7.5) Ur Specific Pioneer 1.024 (1.000-1.030) Urine Protein Negative (Negative) Urine Glucose (UA) Negative (Negative) Urine Ketones Trace H (Negative) Urine Blood Negative (Negative) Urine Nitrite Negative (Negative) Urine Bilirubin Negative (Negative) Urine Urobilinogen Negative (Negative) Ur Leukocyte Esterase Negative (Negative) Urine WBC (Auto) 1-5 (0-5) /hpf Urine RBC (Auto) 0-4 (0-4) /hpf U Hyaline Cast (Auto) 1-5 (0-5) /lpf U Epithel Cells (Auto) 5-10 H (0-5) /lpf Urine Bacteria (Auto) Negative (Negative) 04/26/19 Range/Units 21:20 WBC (4.8-10.8) K/uL RBC (4.7-6.1) M/uL Hgb (14.0-18.0) g/dL POC Hgb 14.3 (14.0-18.0) g/dl Hct (42-52) % POC Hct 42 (42-52) % MCV (80-100) fL MCH (25-34) pg MCHC (32-36) g/dL RDW Std Deviation (36.4-46.3) fL RDW Coeff of Gage (11.5-14.5) % Plt Count (130-400) K/uL MPV (7.4-10.4) fL Immature Gran % (Auto) % Neut % (Auto) % Lymph % (Auto) % Sierra % (Auto) % Eos % (Auto) % Baso % (Auto) % Immature Gran # (Auto) (0.00-0.02) K/uL Neut # (Auto) (1.4-6.5) K/uL Lymph # (Auto) (1.2-3.4) K/uL Sierra # (Auto) (0.11-0.59) K/uL Eos # (Auto) (0-0.5) K/uL Baso # (Auto) (0-0.2) K/uL POC Sodium 137 (135-144) mEq/L Sodium (136-145) mmol/L POC Potassium 4.1 (3.3-5.0) mEq/L Potassium (3.5-5.1) mmol/L POC Chloride 102 (101-112) mEq/L Chloride (98-107) mmol/L Carbon Dioxide (21-32) mmol/L POC Total CO2 24 (24-31) mEq/l Anion Gap (3-11) POC Anion Gap 17.0 (16-25) mmol/L POC BUN 14 (7-18) mg/dl BUN (7-18) mg/dl Creatinine (0.6-1.4) mg/dl POC Creatinine 1.2 (0.6-1.3) mg/dl Est Cr Clr Drug Dosing ml/min Est GFR ( Amer) Est GFR (Non-Af Amer) BUN/Creatinine Ratio (10-20) Glucose (70-99) mg/dl POC Glucose (other) 116 H (70-99) mg/dl Calcium (8.5-10.1) mg/dl POC Ioniz Calcium Alfnoso 1.15 (1.12-1.32) mmol/l Total Bilirubin (0.2-1) mg/dl AST (15-37) U/L ALT (12-78) U/L Alkaline Phosphatase (45-117) U/L Total Protein (6.4-8.2) gm/dl Albumin (3.4-5.0) gm/dl Globulin (2.5-4.0) gm/dl Albumin/Globulin Ratio (0.9-2) Lipase (73-393) U/L Urine Color Urine Appearance (Clear) Urine pH (4.5-7.5) Ur Specific Pioneer (1.000-1.030) Urine Protein (Negative) Urine Glucose (UA) (Negative) Urine Ketones (Negative) Urine Blood (Negative) Urine Nitrite (Negative) Urine Bilirubin (Negative) Urine Urobilinogen (Negative) Ur Leukocyte Esterase (Negative) Urine WBC (Auto) (0-5) /hpf Urine RBC (Auto) (0-4) /hpf U Hyaline Cast (Auto) (0-5) /lpf U Epithel Cells (Auto) (0-5) /lpf Urine Bacteria (Auto) (Negative) Imaging Data Radiologist's Impression: Radiology results as stated below per my review and the radiologist's interpretation: CT abd pelvis IV con only CT DOSE: 1568.94 mGy.cm HISTORY: half dye load, pt has one kidney; RLQ abd pain TECHNIQUE: Multiaxial CT images of the abdomen and pelvis were performed following the use of intravenous contrast. A dose lowering technique was utilized adhering to the principles of ALARA. COMPARISON STUDY: 11/04/2018 FINDINGS: Lung bases remain clear. Liver spleen and pancreas are unremarkable. Gallstones are present in the region of the gallbladder neck. Moderate shows no evidence for distention. Right kidney enhances uniformly. An extrarenal pelvis is present. There is no evidence for hydronephrosis. Bilateral adrenal adenomas versus hyperplastic changes stable. Preoperative findings of a prior ventral hernia repair. There are findings of multifocal right central sigmoid diverticulitis. This is similar compared to the prior study. There are findings of wall thickening and moderate pericolonic infiltrative change of the right central sigmoid with an additional area of wall thickening and mild pericolonic change of the mid sigmoid. No evidence for abscess collection or obstruction. The appendix is normal. There is no evidence for free air or pneumatosis. IMPRESSION: 1. Multifocal right central proximal and mid sigmoid acute diverticulitis. 2. Mild to moderate pericolonic infiltrative change with no evidence for abscess collection or obstruction. 3. Normal appendix. 4. This appearance is similar as compared to the prior exam. The above report was generated using voice recognition software. It may contain grammatical, syntax or spelling errors. Electronically signed by: Mateo Phillips M.D. 04/26/2019 10:31 PM Blood Pressure Blood Pressure Findings: Elevated blood pressure Blood Pressure Disposition: further management by hospitalist MDM Narrative This is a 63-year-old male who presents emergency department complaining of right lower quadrant abdominal pain. Using shared medical decision-making with the patient and family decision was made to send the patient for CAT scan of the abdomen pelvis. This was concerning for diverticulitis. The patient also has a large elevation in his white blood cell count. He is given a normal saline bolus. The patient is still having difficulty getting his pain and nausea under control and is requesting admission. He was given further dose of Reglan. I did discuss the case with the hospitalist service who agreed to admit the patient. Patient was in agreement with the treatment plan. Impression & Plan Diverticulitis large intestine w/o perforation or abscess w/o bleeding, Hypertension, Leukocytosis Discharge Plan Visit Data *Final* Discharge Date/Time: 04/27/19 00:56 Chief Complaint: GI Assessment Stated Complaint: DIVERTICULITIS ED Provider: Roe Owusu Discharge Problem: Diverticulitis large intestine w/o perforation or abscess w/o bleeding, Hypertension, Leukocytosis Patient Disposition: Admitted As Inpatient Discharge Instructions Interventions: ED Discharge Assessment Last Done: 04/27/19 00:56 The scribe's documentation has been prepared under my direction and personally reviewed by me in its entirety. I confirm that the note above accurately reflects all work, treatment, procedures, and medical decision making performed by me.
[2019-04-27] MEDS: MoRPHine SULFATE 4 MG/ML 1 ML CARP\\VIAL IV PRN (03:52)
[2019-04-27] MEDS: PIPERACILLIN/TAZOBACTAM 4.5 GM in DEXTROSE 5% 100 ML IV SCH ×3 (03:52→20:19)
[2019-04-27 05:55] LABS: Hematocrit (blood only) 40.1 % (42-52); Hemoglobin 13.1 g/dL (14.0-18.0); Mean Corpuscular Hgb Conc 32.7 g/dL (32-36); Mean Corpuscular Volume 80.5 fL (80-100); Mean Platelet Volume 10.4 fL (7.4-10.4); Platelet Count 207 K/uL (130-400); RDW Coefficient of Variation 14.3 % (11.5-14.5); RDW Standard Deviation 41.8 fL (36.4-46.3); Red Blood Count 4.98 M/uL (4.7-6.1); White Blood Count 12.69 K/uL (4.8-10.8)
[2019-04-27 06:05] LABS: Prothrombin Time 10.6 Seconds (9.0-12.0)
[2019-04-27 06:22] LABS: BUN Creatinine Ratio 11.8 (10-20); Calcium 8.4 mg/dl (8.5-10.1); Creatinine Clr Calc Pharmacy 86.4 ml/min; Est GFR (African American) 87.1; Est GFR (Non-African American) 75.2
[2019-04-27 07:53] LABS: Estimated Average Glucose 151 mg/dl
[2019-04-27] MEDS: CARVEDILOL 25 MG TAB PO SCH ×2 (09:07→20:20)
[2019-04-27] MEDS: RANOLAZINE 500 MG ER TAB PO SCH ×2 (09:08→20:20)
[2019-04-27] MEDS: INSULIN ASPART 100 UNITS/ML 3 ML PEN SC SCH ×4 (09:09→20:48)
[2019-04-27] MEDS: HEPARIN SOD 5,000 UNIT/0.5 ML VIAL SQ SCH ×3 (09:29→20:48)
[2019-04-27] MEDS: NIFEdipine EXTENDED REL 30 MG TABCR PO SCH (09:31)
[2019-04-27] MEDS: LISINOPRIL 40 MG TAB PO SCH (09:31)
[2019-04-27] MEDS: ASPIRIN 81 MG ECTAB PO SCH (09:32)
[2019-04-27] MEDS: FINASTERIDE 5 MG TAB PO SCH (09:32)
[2019-04-27] MEDS: hydroCHLOROthiazide 25 MG TAB PO SCH (09:32)
--- NOTE | 2019-04-27 10:05 | Pharmacy Report ---
Glycemic Control Consultation - Date of Service April 27, 2019 - Scope Scope: Glycemic Pharmacist consulted by Dr Davies on 04/27/19 for glycemic control and to write orders per [facility] inpatient glycemic control protocol - Objective Weight: 112.8 kg Accuchecks BSG (last 24hrs): 04/26/19 04/26/19 04/27/19 21:13 21:20 05:27 Glucose 111 H 107 H POC Glucose POC Glucose (other) 116 H 04/27/19 07:32 Glucose POC Glucose 97 POC Glucose (other) Laboratory Data (last 24hrs): 04/26/19 04/27/19 21:13 05:27 Potassium 4.2 4.0 Carbon Dioxide 27 26 Anion Gap 6.0 6.0 Creatinine 1.24 1.05 Est Cr Clr Drug Dosing 72.8 86.4 HbA1c: Hemoglobin A1c 6.9 % (4.5-5.6) H 04/27/19 05:27 - Recent Pertinent Medications Outpatient Anti-diabetic Regimen: * Metformin 500mg PO BID * A1c = 6.9 % 04/27/19 Risk Factors for Insulin Resistance: * Diet: Type 2 DM clears - Assessment & Plan Assessment & Plan: ASSESSMENT: * 63-year-old male, PMH CAD, HL, diverticulitis, degenerative joint disease, hypertension, diabetes type 2, obesity with BMI of 39, and kidney stones, CC: right lower quadrant pain. * Pt is maintained on oral antidiabetic agents as an outpatient * Oral agents are not recommended for inpatient use d/t drug interactions, changing PO intake, and difficulty titrating for acute hyper/hypoglycemia. ADA recommends re-initiating outpatient oral agents 1-2 days prior to discharge if/when appropriate if they were held on admission. * Will hold oral agents for admission and utilize SQ bolus insulin regimen which is the recommended regimen for inpatient glycemic control. * Will initiate weight based insulin dosing for insulin teresa patient and titrate based on BSG trends. PLAN FOR INPATIENT GLYCEMIC CONTROL: * Holding outpatient oral diabetes medications * Bolus insulin * NovoLog per scale ACHS or Q6hrs while NPO * Goal Range: Low 110 mg/dL - High 140 mg/dL * Correction Factor: 30 mg/dL/unit * Nutritional / Prandial insulin per carb ratio of 1 unit per 10 grams CHO consumed Discharge Recommendations: * A1c 6.9%, recommend increasing dose of Metformin to max daily dose of 1000mg PO BID. * Please note that the plan above was derived based on current level of insulin resistance and hospital stress. These recommendations are appropriate for inpatient admission only. Plan of care upon discharge will need to be reassessed to avoid potential outpatient hypo/hyperglycemia. Thank you.
--- NOTE | 2019-04-27 17:27 | Hospitalist Progress Note ---
Date of Service April 27, 2019 Assessment & Plan (1) Diverticulitis large intestine w/o perforation or abscess w/o bleeding: Present on admission with RLQ tenderness CT abd/pelvis showed multifocal right central proximal and mid sigmoid acute diverticulitis. Mild to moderate pericolonic infiltrative change with no evidence for abscess collection or obstruction. Afebrile, WBC slightly decreased to 12K He was starting on Zosyn IV, will continue IV abx for now Tolerated clear liquid diet, will advance diet to full liquid Continue pain control Will need outpatient colonoscopy in 6 to 8 weeks Continue monitor (2) Leukocytosis: Mostly related to diverticulitis WBC on admission 14K, improves to 12K Continue IV Zosyn Monitor BMP (3) Diabetes mellitus, type 2: Hba1c 6.9 on 04/27/19 Metformin on hold Continue insulin sliding scale Continue monitor BS (4) Hypertension: BP controlled Continue BP home doses Monitor BP (5) Obesity (BMI 30-39.9): Counseling on weight loss and limited carb intake DVT px on Heparin subq Code status Full code Subjective Pt was seen and examined Sitting in chair with no distress Pt said that abdominal pain improves He said that he tolerated clear liquid diet Denies any chest pain, palpitation, nausea, vomiting and fever Physical Exam Physical Exam: General- No acute distress Head- atraumatic Eyes- PERRL, EOMI, ENT- oropharynx clear Neck- supple, no JVD Lungs- clear to auscultation Heart- regular rhythm; no murmur Abdomen- normal bowel sounds, soft, +tenderness RLQ Extremities- no calf tenderness Neuro- alert, oriented x 3; PERRL, EOMI; no facial palsy; no dysarthria Skin- warm & dry Results & Data Vital Signs (Past 12 Hours) Vital Signs Temp Pulse Resp BP BP Pulse Ox 04/27/19 15:15 36.7 C 16 132/81 92 04/27/19 08:15 36.4 C L 63 16 169/98 H 95 04/27/19 06:00 161/91 H (1) Leukocytosis Leukocytosis type: unspecified Qualified Code(s): D72.829 - Elevated white blood cell count, unspecified (2) Hypertension Hypertension type: unspecified Qualified Code(s): I10 - Essential (primary) hypertension
[2019-04-27] MEDS ORDERED: ATORVASTATIN 20 MG TAB PO SCH (21:00)
[2019-04-28] MEDS: MoRPHine SULFATE 4 MG/ML 1 ML CARP\\VIAL IV PRN (01:54)
[2019-04-28] MEDS: PIPERACILLIN/TAZOBACTAM 4.5 GM in DEXTROSE 5% 100 ML IV SCH ×2 (04:04→13:55)
[2019-04-28] MEDS: HEPARIN SOD 5,000 UNIT/0.5 ML VIAL SQ SCH ×2 (05:55→14:45)
[2019-04-28 07:39] LABS: Creatinine Clr Calc Pharmacy 79.5 ml/min; Est GFR (African American) 78.9; Est GFR (Non-African American) 68.1
--- NOTE | 2019-04-28 07:54 | Pharmacy Report ---
Pharmacy Glycemic Sign Off Nt - Date of Service April 28, 2019 - Assessment & Plan ASSESSMENT: * Pharmacy was consulted by Dr Davies on 04/27 for glycemic control and to write orders per [facility] inpatient glycemic control protocol. * Major changes made by pharmacy to antidiabetic regimen include: * starting Novolog with CF and CR * Patient has been receiving/requiring 0 units of insulin per day for adequate glycemic control * BSGs ranging 97 -119 mg/dl * Do not anticipate further changes in patient status that would quickly deteriorate glycemic control (i.e. patient to be NPO for upcoming procedure, steroids tapering, starting tube feedings, etc). * Please see recommendations for outpatient antidiabetic regimen below. PLAN FOR INPATIENT GLYCEMIC CONTROL: * Continue NovoLog per scale ACHS/Q6hrs while NPO * Goal range = 110-140 mg/dl * CF = 30 mg/dl/unit * Discontinue CR = 1 unit for ever 10 g CHO consumed (pt not requiring) * A1c added to discharge instructions to be communicated to PCP. * Pharmacy is signing off of glycemic consult and will no longer be making adjustments to inpatient regimen. Please feel free to re-consult if needed. Thank you. DISCHARGE RECOMMENDATIONS: * A1c 6.9 % on 04/27/19 * Continue Metformin 500mg PO BID - consider increase to 1000mg PO BID
[2019-04-28] MEDS: FINASTERIDE 5 MG TAB PO SCH (08:48)
[2019-04-28] MEDS: NIFEdipine EXTENDED REL 30 MG TABCR PO SCH (08:49)
[2019-04-28] MEDS: hydroCHLOROthiazide 25 MG TAB PO SCH (08:50)
[2019-04-28] MEDS: RANOLAZINE 500 MG ER TAB PO SCH (08:50)
[2019-04-28] MEDS: LISINOPRIL 40 MG TAB PO SCH (08:50)
[2019-04-28] MEDS: CARVEDILOL 25 MG TAB PO SCH (08:51)
[2019-04-28] MEDS: ASPIRIN 81 MG ECTAB PO SCH (08:51)
[2019-04-28] MEDS: INSULIN ASPART 100 UNITS/ML 3 ML PEN SC SCH ×3 (08:59→17:24)
--- NOTE | 2019-04-28 16:51 | Hospitalist Progress Note ---
Date of Service April 28, 2019 Assessment & Plan (1) Diverticulitis large intestine w/o perforation or abscess w/o bleeding: Present on admission with RLQ tenderness CT abd/pelvis showed multifocal right central proximal and mid sigmoid acute diverticulitis. Mild to moderate pericolonic infiltrative change with no evidence for abscess collection or obstruction. Afebrile, WBC slightly decreased to 12K Received 2 days course of IV Zosyn Tolerated low fiber diet Pain improves significantly Will need outpatient colonoscopy in 6 to 8 weeks Will change abx to Augmentin on discharge (2) Leukocytosis: Mostly related to diverticulitis WBC on admission 14K, improves to 12K Received IV Zosyn x2 days, then will transition to Augmentin on discharge Afebrile (3) Diabetes mellitus, type 2: Hba1c 6.9 on 04/27/19 Metformin held during hospital course Continue insulin sliding scale Continue monitor BS Will resume metformin on discharge (4) Hypertension: BP controlled Continue BP home meds Monitor BP (5) Obesity (BMI 30-39.9): Counseling on weight loss and limited carb intake DVT px on Heparin subq Code status Full code Disposition Follow up with your primary care provider Dr. Rivera (Dr. Carter's colleague ) on 05/01 @ 10:45 AM Complete the course of the antibiotic You will need outpatient colonoscopy in 6 to 8 weeks (Your physician will arrange for the referral) Concha hold the tramadol if you become drowsy and lethargy Do not drive or operate any machine after taking the tramadol Fall precaution Subjective Pt was seen and examined Lying in bed with at bedside Pt said that his pain is much better He said that he tolerated the low fiber diet He said that his pain is very mild He walked around the hallway with no distress Denies any chest pain, palpitation, dizziness, nausea/dizziness and SOB Physical Exam Physical Exam: General- No acute distress Head- atraumatic Eyes- PERRL, EOMI, ENT- oropharynx clear Neck- supple, no JVD Lungs- clear to auscultation Heart- regular rhythm; no murmur Abdomen- normal bowel sounds, soft, +mild tenderness RLQ Extremities- no calf tenderness Neuro- alert, oriented x 3; PERRL, EOMI; no facial palsy; no dysarthria Skin- warm & dry Results & Data Vital Signs (Past 12 Hours) Vital Signs Temp Pulse Pulse Resp BP BP Pulse Ox 04/28/19 15:29 36.5 C 65 18 116/73 93 04/28/19 14:23 36.6 C 75 63 18 169/98 H 138/77 95 04/28/19 07:00 36.6 C 63 18 138/77 95 (1) Leukocytosis Leukocytosis type: unspecified Qualified Code(s): D72.829 - Elevated white blood cell count, unspecified (2) Hypertension Hypertension type: unspecified Qualified Code(s): I10 - Essential (primary) hypertension
--- NOTE | 2019-04-29 09:09 | Discharge Summary ---
Date of Service April 29, 2019 Admission HPI Per Admitting Provider 63-year-old male with past medical history of coronary disease, hyperlipidemia, diverticulitis, degenerative joint disease, hypertension, diabetes type 2, obesity with BMI of 39, and kidney stones who presents with right lower quadrant pain which started today. He has had bouts of diverticulitis in the past and that was found on CAT scan. He says the worst pain of his life. He was also found to have a leukocytosis and will be brought in for IV antibiotics. He notes nausea but no vomiting, denies any fevers chills or chest pain. Past medical historyCAD, hyperlipidemia, diverticulitis, degenerative joint disease, hypertension, type 2 diabetes, obesity with a BMI 39, kidney stones. 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 No known drug allergies Admission Exam Per Admitting Provider Gen-AAO x 3, NAD, Afebrile, obese Head-NCAT, EOMI, PERRLA, Anicteric Sclera, No Posterior Pharyngeal Erythema Neck-Supple, No JVD, No Thyromegaly, No Masses, No LAD, No Bruits Lungs-Clear to Auscultation Bilaterally, No Rales, No Rhonchi, No Wheezing, No Crepitus Chest-No S4, +S1, +S2, No S3, No Murmurs, No Rubs, No Gallops, No Ectopy Abdomen-Soft, Bowel Sounds Present, right lower quadrant is tender, obese, non Distended, No Hepatomegaly, No Splenomegaly, No Palpable Masses, No Rebound, No Rigidity, mild guarding Musculoskeletal-Full Range of Motion Bilaterally, No CVAT Extremities-No Cyanosis, No Clubbing, No Edema Nuero-Cranial Nerves II-XII grossly intact, Motor WNL, DTRs WNL, Strength WNL, Non Focal Psych-Normal Mood Principal Diagnosis Diverticulitis Diabetes mellitus, type 2 Leukocytosis Hypertension Obesity Discharge Exam General- No acute distress Head- atraumatic Eyes- PERRL, EOMI, ENT- oropharynx clear Neck- supple, no JVD Lungs- clear to auscultation Heart- regular rhythm; no murmur Abdomen- normal bowel sounds, soft, +mild tenderness RLQ Extremities- no calf tenderness Neuro- alert, oriented x 3; PERRL, EOMI; no facial palsy; no dysarthria Skin- warm & dry Discharge Data Allergies Allergy/AdvReac Type Severity Reaction Status Date / Time No Known Allergies Allergy Verified 04/26/19 21:40 Consultations 04/26/19 23:22 ED Decision to Admit Stat Ordered Studies 04/26/19 20:48 CT abd pelvis IV con only Stat CT abd pelvis IV con only CT DOSE: 1568.94 mGy.cm HISTORY: half dye load, pt has one kidney; RLQ abd pain TECHNIQUE: Multiaxial CT images of the abdomen and pelvis were performed following the use of intravenous contrast. A dose lowering technique was util ized adhering to the principles of ALARA. COMPARISON STUDY: 11/04/2018 FINDINGS: Lung bases remain clear. Liver spleen and pancreas are unremarkable. Gallstones are present in the region of the gallbladder neck. Moderate shows no evidence for distention. Right kidney enhances uniformly. An extrarenal pelvis is present. There is no evidence for hydronephrosis. Bilateral adrenal adenomas versus hyperplastic changes stable. Preoperative findings of a prior ventral hernia repair. There are findings of multifocal right central sigmoid diverticulitis. This is similar compared to the prior study. There are findings of wall thickening and moderate pericolonic infiltrative change of the right central sigmoid with an additional area of wall thickening and mild pericolonic change of the mid sigmoid. No evidence for abscess collection or obstruction. The appendix is normal. There is no evidence for free air or pneumatosis. IMPRESSION: 1. Multifocal right central proximal and mid sigmoid acute diverticulitis. 2. Mild to moderate pericolonic infiltrative change with no evidence for abscess collection or obstruction. 3. Normal appendix. 4. This appearance is similar as compared to the prior exam. The above report was generated using voice recognition software. It may contain grammatical, syntax or spelling errors. Electronically signed by: Mateo Phillips M.D. 04/26/2019 10:31 PM Dictated: 04/26/192225 Transcribed: 04/26/192225 Hospital Course (1) Diverticulitis large intestine w/o perforation or abscess w/o bleeding: Present on admission with RLQ tenderness CT abd/pelvis showed multifocal right central proximal and mid sigmoid acute diverticulitis. Mild to moderate pericolonic infiltrative change with no evidence for abscess collection or obstruction. Afebrile, WBC slightly decreased to 12K Received 2 days course of IV Zosyn Tolerated low fiber diet Pain improves significantly Will need outpatient colonoscopy in 6 to 8 weeks Will change abx to Augmentin on discharge (2) Leukocytosis: Mostly related to diverticulitis WBC on admission 14K, improves to 12K Received IV Zosyn x2 days, then will transition to Augmentin on discharge Afebrile (3) Diabetes mellitus, type 2: Hba1c 6.9 on 04/27/19 Metformin held during hospital course Continue insulin sliding scale Continue monitor BS Will resume metformin on discharge (4) Hypertension: BP controlled Continue BP home meds Monitor BP (5) Obesity (BMI 30-39.9): Counseling on weight loss and limited carb intake DVT px on Heparin subq Code status Full code Disposition Follow up with your primary care provider Dr. Rivera (Dr. Carter's colleague ) on 05/01 @ 10:45 AM Complete the course of the antibiotic You will need outpatient colonoscopy in 6 to 8 weeks (Your physician will arrange for the referral) Hustler hold the tramadol if you become drowsy and lethargy Do not drive or operate any machine after taking the tramadol Fall precaution Total Time Total Time Spent Total Time Spent (In Minutes): 35 minutes Total Time Includes: Examination of the Patient, Discharge Planning, Medication Reconciliation, Communication With Other Providers and Other Discharge Plan Discharge Items Patient Disposition: Home - Self-Care Reason For Visit: DIVERTICULITIS Discharge Diagnosis: Diverticulitis Diabetes mellitus, type 2 Leukocytosis Hypertension Discharge Goals: Decrease discomfort, Improve disease control, Improve function and Increase independence Activity: Resume your previous activity Activity Comment: As tolerated Non-emergency contact: Primary Care Provider Call non-emergency contact if: you have any medication questions, your pain is worsening and your temperature is above 101 Follow-up/Referrals: Jeet Carter MD [Primary Care Provider] - Diet: Carb Consistent or DM2 and Low Fiber Addtl Provider Instructions: Follow up with your primary care provider Dr. Rivera (Dr. Carter's colleague ) on 05/01 @ 10:45 AM Complete the course of the antibiotic Follow a low fiber diet, then advanced gradually as tolerated You will need outpatient colonoscopy in 6 to 8 weeks (Your physician will arrange for the referral) Hustler hold the tramadol if you become drowsy and lethargy Do not drive or operate any machine after taking the tramadol Fall precaution Prescriptions: New amoxicillin-pot clavulanate [Augmentin] 875-125 mg tablet 1 tab PO BID 5 Days Qty: 10 RF: 0 tramadol 50 mg tablet 25 - 50 mg PO TID PRN (Reason: Pain) Qty: 10 RF: 0 Continued buspirone 5 mg Tablet 5 mg PO TID PRN (Reason: Anxiety) RF: 0 nifedipine 90 mg Tablet Extended Release 90 mg PO DAILY RF: 0 lisinopril 40 mg Tablet 40 mg PO DAILY RF: 0 hydrochlorothiazide 12.5 mg Tablet 12.5 mg PO QAM RF: 0 metformin 500 mg tablet 500 mg PO BID RF: 0 carvedilol 25 mg tablet 25 mg PO BID RF: 0 atorvastatin 20 mg tablet 20 mg PO HS RF: 0 aspirin 81 mg Tablet,Delayed Release (Dr/Ec) 81 mg PO DAILY RF: 0 finasteride 5 mg tablet 5 mg PO DAILY RF: 0 ranolazine 1,000 mg tablet extended release 12 hr 1,000 mg PO Q12H RF: 0 Stand-Alone Forms: [facility] Discharge Orders: Discharge Order (Routine); Ordered 04/28/19 Ordered By: Dorothy Geronimo Admission Data Admit Date/Time: 04/26/19 23:54 Attending Provider: Dorothy Geronimo Admit Provider: Thanh Davies Primary Care Provider: eJet Carter Other Providers: Thanh Davies Service: Medical Other Interventions: Discharge Summary Assessment (RN) Last Done: 04/28/19 17:23 DC Date/Time DO NOT enter until pt leaves facility: 04/28/19 18:00
== END 2019-04-28 18:00 | disposition home or self-care (01) | DRG 392 ==
LOC: ED 20:27 → 2N 23:54 → SUATTDRO 23:54 → 2N 04-27 00:56

== ENCOUNTER 2020-05-01 16:50 | Inpatient (IN) ==
[2020-05-01] MEDS ORDERED: SODIUM CHLORIDE 0.9% 500 ML IV ONE (18:04)
[2020-05-01] MEDS ORDERED: NITROGLYCERIN SL 0.4 MG/TAB TAB SL STA (18:06)
--- NOTE | 2020-05-01 18:28 | Emergency Department Note ---
Impression & Plan Exertional chest pain, Hypertensive urgency, History of coronary artery disease ED Provider Note NAME: CORAZON FERNANDEZ AGE: 65 SEX: M ARRIVES VIA: Walk-In INFORMANT: Patient, ED PROVIDER(S): Glen Peralta MD CHIEF COMPLAINT: Exertional Chest pain PLAN: Disposition: Admit. MEDICAL DECISION MAKING: The patient is a pleasant 65-year-old gentleman with a past medical history of hypertension, hyperlipidemia, CAD with heart catheterization in 2018 that showed severe small vessel disease and otherwise nonobstructive CAD with plan for medical optimization but consideration for angioplasty if he ever developed any worsening anginal symptoms who presents emergency department with newly severe substernal chest pain with radiation to the left arm in the setting of exertion when at work which occurs in the setting of reporting more minor similar-like symptoms with exertion over the past year. He reports he did not take his nitro because he does not have any that is not as he has never had to use it in the past. He denies any recent illness including denies fevers, chills, cough, congestion, shortness of breath, nausea, vomiting, diarrhea, urinary symptoms. Arrival the patient is uncomfortable but no acute distress, afebrile with blood pressure 220/100s and vital signs otherwise stable. EKG without overt acute ischemia. Chest x-ray negative for acute process. WBC, H/H and platelets within normal limits. Chemistry without acidosis. Electrolytes and LFTs unremarkable. Initial troponin within normal limits at 0.035. Was given nitroglycerin with improvement in his symptoms. He was given full dose aspirin. Given the patient's report of worsening exertional chest pain reasonable to admit the patient for further management. He was agreeable with this. Continue to trend troponin. Will defer decision for heparin to admitting team. Case was discussed with Dr. Puentes, [facility] hospitalist, who will evaluate the patient for admission. Triage Nursing notes reviewed and agree them. Prior medical records reviewed Vital Signs: reviewed and remarkable for no significant abnormalities Differential diagnosis: Cardiac ischemia, aortic dissection, pulmonary embolism, pneumothorax, pneumonia, pericarditis, myocarditis, esophageal rupture, GERD, cholecystitis, pancreatitis, musculoskeletal, as well as other pathologies. ER treatment provided: See below. Diagnostics interpreted by me: ECG: Normal sinus rhythm, 74 bpm, no ectopy, no overt ST elevation or depression, QTC 461, QRS 98. Cardiac Monitoring: An order for continuous cardiac monitoring was placed and demonstrated normal sinus rhythm, 74 bpm, no ectopy, Laboratory studies: See below Imaging studies: SINGLE VIEW CHEST CLINICAL HISTORY: Atypical chest pain. FINDINGS: An AP, portable, upright chest radiograph is compared to study dated 09/16/2016. The examination is degraded by portable technique and apical lordotic positioning. The heart is top normal for projection noting atherosclerotic calcification of the thoracic aorta. The pulmonary vasculature is noncongested. There is mild chronic elevation of the right hemidiaphragm and bibasilar atelectasis. No airspace consolidation or large pleural effusion is seen. No pneumothorax is identified. The bony thorax is grossly intact. IMPRESSION: No active disease in the chest. Consultation(s): Case was discussed with Dr. Puentes, [facility] hospitalist, who will evaluate the patient for admission. HPI: The patient is a pleasant 65-year-old gentleman with a past medical history of hypertension, hyperlipidemia, CAD with heart catheterization in 2018 that showed severe small vessel disease and otherwise nonobstructive CAD with plan for medical optimization but consideration for angioplasty if he ever developed any worsening anginal symptoms who presents emergency department with newly severe substernal chest pain with radiation to the left arm in the setting of exertion when at work which occurs in the setting of reporting more minor similar-like symptoms with exertion over the past year. He reports he did not take his nitro because he does not have any that is not as he has never had to use it in the past. He denies any recent illness including denies fevers, chills, cough, congestion, shortness of breath, nausea, vomiting, diarrhea, urinary symptoms. ROS: See above HPI for pertinent positives & negatives. A total of 10 systems reviewed and were otherwise negative. PAST MEDICAL HISTORY:See Below PAST SURGICAL HISTORY:See Below FAMILY HISTORY:See Below SOCIAL HISTORY:See Below HOME MEDICATIONS:See Below ALLERGIES:See Below VITALS:See Below PHYSICAL EXAMINATION: GENERAL: Awake, alert, uncomfortable-appearing, in no distress HENT: Normocephalic, atraumatic. Oropharynx unremarkable. EYES: Normal conjunctiva. Sclera non-icteric. NECK: Supple. No nuchal rigidity. FROM. No JVD. RESPIRATORY: Clear to auscultation. CARDIAC: Regular rate, normal rhythm. Extremities warm and well perfused. Pulses equal. ABDOMEN: Soft, non-distended. No tenderness to palpation. No rebound or guarding. No masses. RECTAL: Deferred. MUSCULOSKELETAL: Chest examination reveals no tenderness. The back is symmetrical on inspection without obvious abnormality. There is no CVA tenderness to palpation. No joint edema. LOWER EXTREMITIES: Calves are equal size bilaterally and non-tender. No edema. No discoloration. NEURO: Normal sensorium. No sensory or motor deficits noted. SKIN: No rash or jaundice noted. Glen Peralta MD Past Med/Surg History Medical History Diabetes mellitus, type 2 Diverticular disease History of hypotension Hyperlipidemia Hypertension (Acute) Solitary kidney Surgical History History of nephrectomy left History of tonsillectomy and adenoidectomy Family History Father Coronary heart disease Social History Smoking Status: Former smoker Tobacco Type: Smokeless Tobacco (Dip or Chew) Cigarettes Per Day: 40; Second Hand Exposure: No; Do You Dip or Chew Tobacco: Yes; Tobacco Cessation Education Requested by Patient: No Hx Alcohol Use: Yes Alcohol type: beer Hx Substance Use: No Preferred Language: Burmese Communication Ability: Effective Bus Attendant Required: No Beliefs That Will Affect Care: None Current Living Situation: Spouse Current Living Situation Comment: House Other Information That Helps Us Care for You: No Feels Safe at Home: Yes Safety Concerns: Feels Safe At This Time Allergies Allergies Allergy/AdvReac Type Severity Reaction Status Date / Time No Known Allergies Allergy Verified 05/01/20 20:56 Home Meds Home Medications Medication Instructions Recorded Confirmed buspirone 5 mg PO TID PRN 06/15/18 05/01/20 hydrochlorothiazide 12.5 mg PO QAM 06/15/18 05/01/20 lisinopril 40 mg PO DAILY 06/15/18 05/01/20 aspirin 81 mg PO QAM 04/26/19 05/01/20 carvedilol 37.5 mg PO BID 04/26/19 05/01/20 finasteride 5 mg PO QAM 04/26/19 05/01/20 metformin 500 mg PO BID 04/26/19 05/01/20 nitroglycerin 0.4 mg sublingual 0.4 mg SL DIRECTED PRN #25 tab 05/27/19 05/01/20 tablet atorvastatin 20 mg PO HS 12/12/19 05/01/20 nifedipine 30 mg PO QPM 12/12/19 05/01/20 terazosin 5 mg PO HS 12/12/19 05/01/20 Previous Rx's Medication Instructions Recorded tramadol 25 - 50 mg PO TID PRN #10 tab 04/28/19 isosorbide mononitrate 120 mg 120 mg PO QAM #30 tab 02/19/20 tablet,extended release 24 hr ranolazine 1,000 mg 1,000 mg PO Q12H #180 tab 03/04/20 tablet,extended release,12 hr Results & Data (ED) Vital Signs Vital Signs - 24 hr 05/01/20 17:08 05/01/20 18:38 05/01/20 18:50 Temperature 36.9 C Temperature Source Oral Pulse Rate 74 Pulse Rate [Left] 67 Pulse Rhythm Regular Pulse Rhythm [Left] Regular Pulse Strength Normal Pulse Strength [Left] Normal Respiratory Rate 20 18 Respiratory Effort / Characteristics Non-Labored Spontaneous Non-Labored Spontaneous Respiratory Depth Normal Normal Respiratory Pattern Regular Regular Blood Pressure 226/106 H Blood Pressure [Right Arm] 196/96 H Blood Pressure Mean 146 Blood Pressure Mean [Right Arm] 129 Blood Pressure Position Sitting Blood Pressure Position [Right Arm] Lying Pulse Oximetry 94 98 Oxygen Delivery Method Room Air Room Air Room Air Sepsis Recent Fever Within 48 Hours No Sepsis New/Unexplained Change in Mental Status No Sepsis Action Taken by Nursing No Action Required 05/01/20 19:50 05/01/20 21:00 Temperature Temperature Source Pulse Rate Pulse Rate [Left] 67 67 Pulse Rhythm Pulse Rhythm [Left] Pulse Strength Pulse Strength [Left] Respiratory Rate 16 18 Respiratory Effort / Characteristics Respiratory Depth Normal Respiratory Pattern Blood Pressure Blood Pressure [Right Arm] 180/94 H 171/88 H Blood Pressure Mean Blood Pressure Mean [Right Arm] 122 115 Blood Pressure Position Blood Pressure Position [Right Arm] Lying Lying Pulse Oximetry 97 97 Oxygen Delivery Method Room Air Room Air Sepsis Recent Fever Within 48 Hours Sepsis New/Unexplained Change in Mental Status Sepsis Action Taken by Nursing Laboratory Data Result diagrams: 05/01/20 18:30 05/01/20 18:30 Lab Results 05/01/20 05/01/20 05/01/20 Range/Units 18:30 18:30 18:30 WBC 10.44 (4.8-10.8) K/uL RBC 5.29 (4.7-6.1) M/uL Hgb 14.7 (14.0-18.0) g/dL Hct 42.8 (42-52) % MCV 80.9 (80-100) fL MCH 27.8 (25-34) pg MCHC 34.3 (32-36) g/dL RDW Std Deviation 41.7 (36.4-46.3) fL RDW Coeff of Gage 14.1 (11.5-14.5) % Plt Count 268 (130-400) K/uL MPV 10.2 (7.4-10.4) fL Immature Gran % (Auto) 0.3 % Neut % (Auto) 61.6 % Lymph % (Auto) 27.1 % Arroyo % (Auto) 9.7 % Eos % (Auto) 1.1 % Baso % (Auto) 0.2 % Neut # (Auto) 6.44 (1.4-6.5) K/uL Lymph # (Auto) 2.83 (1.2-3.4) K/uL Arroyo # (Auto) 1.01 H (0.11-0.59) K/uL Eos # (Auto) 0.11 (0-0.5) K/uL Baso # (Auto) 0.02 (0-0.2) K/uL Immature Gran # (Auto) 0.03 H (0.00-0.02) K/uL PT 11.3 (9.0-12.0) Seconds INR 1.1 (0.9-1.1) APTT 30.5 (21.0-31.0) Seconds PTT Ratio 1.1 Sodium 138 (136-145) mmol/L Potassium 3.8 (3.5-5.1) mmol/L Chloride 106 (98-107) mmol/L Carbon Dioxide 24 (21-32) mmol/L Anion Gap 8.0 (3-11) BUN 14 (7-18) mg/dl Creatinine 1.18 (0.6-1.4) mg/dl Est Cr Clr Drug Dosing Not Reportable Est GFR ( Amer) 74.6 Est GFR (Non-Af Amer) 64.4 BUN/Creatinine Ratio 11.8 (10-20) Glucose 93 (70-99) mg/dl Calcium 9.4 (8.5-10.1) mg/dl Phosphorus 2.7 (2.5-4.9) mg/dl Magnesium 1.8 (1.8-2.4) mg/dl Total Bilirubin 0.7 (0.2-1) mg/dl AST 27 (15-37) U/L ALT 32 (12-78) U/L Alkaline Phosphatase 63 (45-117) U/L Troponin I 0.035 (0-0.045) ng/ml Total Protein 8.0 (6.4-8.2) gm/dl Albumin 4.1 (3.4-5.0) gm/dl Globulin 3.9 (2.5-4.0) gm/dl Albumin/Globulin Ratio 1.1 (0.9-2) Lipase 117 (73-393) U/L Hepatitis C Ab Screen (Neg) 05/01/20 Range/Units 18:30 WBC (4.8-10.8) K/uL RBC (4.7-6.1) M/uL Hgb (14.0-18.0) g/dL Hct (42-52) % MCV (80-100) fL MCH (25-34) pg MCHC (32-36) g/dL RDW Std Deviation (36.4-46.3) fL RDW Coeff of Gage (11.5-14.5) % Plt Count (130-400) K/uL MPV (7.4-10.4) fL Immature Gran % (Auto) % Neut % (Auto) % Lymph % (Auto) % Arroyo % (Auto) % Eos % (Auto) % Baso % (Auto) % Neut # (Auto) (1.4-6.5) K/uL Lymph # (Auto) (1.2-3.4) K/uL Arroyo # (Auto) (0.11-0.59) K/uL Eos # (Auto) (0-0.5) K/uL Baso # (Auto) (0-0.2) K/uL Immature Gran # (Auto) (0.00-0.02) K/uL PT (9.0-12.0) Seconds INR (0.9-1.1) APTT (21.0-31.0) Seconds PTT Ratio Sodium (136-145) mmol/L Potassium (3.5-5.1) mmol/L Chloride (98-107) mmol/L Carbon Dioxide (21-32) mmol/L Anion Gap (3-11) BUN (7-18) mg/dl Creatinine (0.6-1.4) mg/dl Est Cr Clr Drug Dosing Est GFR ( Amer) Est GFR (Non-Af Amer) BUN/Creatinine Ratio (10-20) Glucose (70-99) mg/dl Calcium (8.5-10.1) mg/dl Phosphorus (2.5-4.9) mg/dl Magnesium (1.8-2.4) mg/dl Total Bilirubin (0.2-1) mg/dl AST (15-37) U/L ALT (12-78) U/L Alkaline Phosphatase (45-117) U/L Troponin I (0-0.045) ng/ml Total Protein (6.4-8.2) gm/dl Albumin (3.4-5.0) gm/dl Globulin (2.5-4.0) gm/dl Albumin/Globulin Ratio (0.9-2) Lipase (73-393) U/L Hepatitis C Ab Screen Neg (Neg) Administered Medications Carvedilol (Coreg) 37.5 mg PO BID [facility] Stop: 05/31/20 22:10 Last Admin: 05/01/20 22:47 Dose: 37.5 mg Documented by: [id number] Heparin Sodium/Dextrose (Heparin Sodium/Dextrose) 25,000 units in 500 mls @ 30 mls/hr IV .[id number] [facility]; Protocol Stop: 05/31/20 23:44 Last Admin: 05/02/20 00:01 Dose: 1,500 units/hr, 30 mls/hr Documented by: [id number] Cosigned by: [id number] Sodium Chloride (Nss 1000ml) 1,000 mls @ 75 mls/hr IV .[id number] [facility] Stop: 05/31/20 23:44 Last Admin: 05/01/20 23:58 Dose: 75 mls/hr Documented by: [id number] Nitroglycerin (Nitro-Bid 2%) 1 inch EXT Q6H [facility] Stop: 06/01/20 00:00 Last Admin: 05/01/20 23:50 Dose: 1 inch Documented by: [id number] Ranolazine (Ranexa) 1,000 mg PO Q12 [facility] Stop: 05/31/20 22:10 Last Admin: 05/01/20 22:48 Dose: 1,000 mg Documented by: [id number] Discontinued Medications Aspirin (Aspirin) 324 mg PO NOW STA Stop: 05/01/20 20:11 Last Admin: 05/01/20 20:14 Dose: 324 mg Documented by: [id number] Heparin Sodium (Porcine) (Heparin Sodium (Porcine)) 5,000 units SQ Q8 [facility] Stop: 05/31/20 22:10 Last Admin: 05/01/20 22:50 Dose: 5,000 units Documented by: [id number] Cosigned by: [id number] Heparin Sodium/Dextrose () 1 ea IV Q15M [facility]; Protocol Stop: 05/31/20 23:35 Last Admin: 05/02/20 00:04 Dose: Not Given Documented by: [id number] Admin: 05/01/20 23:58 Dose: Not Given Documented by: [id number] Sodium Chloride (Nss) 500 mls @ 999 mls/hr IV .Q31M ONE Stop: 05/01/20 18:34 Last Infusion: 05/01/20 19:02 Dose: 0 mls/hr Documented by: [id number] Admin: 05/01/20 18:25 Dose: 999 mls/hr Documented by: [id number] Ioversol (Optiray 320 125ml) 118 ml IV ONCE PRN PRN Reason: Interaction Checking Stop: 05/05/20 19:07 Last Admin: 05/01/20 19:09 Dose: 118 ml Documented by: [id number] Nitroglycerin (Nitrostat) 0.4 mg SL NOW STA Stop: 05/01/20 18:07 Last Admin: 05/01/20 18:30 Dose: 0.4 mg Documented by: [id number] Blood Pressure Blood Pressure Findings: Elevated blood pressure Blood Pressure Disposition: further management by hospitalist Discharge Plan Visit Data *Final* Discharge Date/Time: 05/01/20 21:34 Chief Complaint: Chest Pain Stated Complaint: CHEST PAIN, LEFT ARM FELLS HEAVY ED Provider: Glen Peralta Discharge Problem: Exertional chest pain, Hypertensive urgency, History of coronary artery disease Patient Disposition: Admitted As Inpatient Discharge Instructions Interventions: ED Discharge Assessment Last Done: 05/01/20 21:34
[2020-05-01 18:36] LABS: Basophils # (auto) 0.02 K/uL (0-0.2); Basophils % (auto) 0.2 %; Eosinophils # (auto) 0.11 K/uL (0-0.5); Eosinophils % (auto) 1.1 %; Hematocrit (blood only) 42.8 % (42-52); Hemoglobin 14.7 g/dL (14.0-18.0); Immature Granulocytes # (auto) 0.03 K/uL (0.00-0.02); Immature Granulocytes % (auto) 0.3 %; Lymphocytes # (auto) 2.83 K/uL (1.2-3.4); Lymphocytes % (auto) 27.1 %; Mean Corpuscular Hemoglobin 27.8 pg (25-34); Mean Corpuscular Hgb Conc 34.3 g/dL (32-36); Mean Corpuscular Volume 80.9 fL (80-100); Mean Platelet Volume 10.2 fL (7.4-10.4); Monocytes # (auto) 1.01 K/uL (0.11-0.59); Monocytes % (auto) 9.7 %; Neutrophils # (auto) 6.44 K/uL (1.4-6.5); Neutrophils % (auto) 61.6 %; Platelet Count 268 K/uL (130-400); RDW Coefficient of Variation 14.1 % (11.5-14.5); RDW Standard Deviation 41.7 fL (36.4-46.3); Red Blood Count 5.29 M/uL (4.7-6.1); White Blood Count 10.44 K/uL (4.8-10.8)
[2020-05-01 18:49] LABS: INR 1.1 (0.9-1.1); Partial Thromboplastin Ratio 1.1; Partial Thromboplastin Time 30.5 Seconds (21.0-31.0); Prothrombin Time 11.3 Seconds (9.0-12.0)
[2020-05-01 18:55] LABS: Alanine Aminotransferase 32 U/L (12-78); Albumin Level 4.1 gm/dl (3.4-5.0); Aspartate Aminotransferase 27 U/L (15-37); BUN Creatinine Ratio 11.8 (10-20); Blood Urea Nitrogen 14 mg/dl (7-18); Calcium 9.4 mg/dl (8.5-10.1); Carbon Dioxide 24 mmol/L (21-32); Chloride 106 mmol/L (98-107); Est GFR (African American) 74.6; Est GFR (Non-African American) 64.4; Glucose 93 mg/dl (70-99); Lipase 117 U/L (73-393); Magnesium 1.8 mg/dl (1.8-2.4); Potassium 3.8 mmol/L (3.5-5.1); Sodium 138 mmol/L (136-145)
--- NOTE | 2020-05-01 18:58 | XRay Report ---
SINGLE VIEW CHEST CLINICAL HISTORY: Atypical chest pain. FINDINGS: An AP, portable, upright chest radiograph is compared to study dated 09/16/2016. The examina tion is degraded by portable technique and apical lordotic positioning. The heart is top normal for p rojection noting atherosclerotic calcification of the thoracic aorta. The pulmonary vasculature is no ncongested. There is mild chronic elevation of the right hemidiaphragm and bibasilar atelectasis. No airspace consolidation or large pleural effusion is seen. No pneumothorax is identified. The bony tho rax is grossly intact. IMPRESSION: No active disease in the chest. ACT 112: Negative or not required by law. Electronically signed by: Yemi Barbosa M.D. 05/01/2020 6:57 PM
[2020-05-01 19:00] LABS: Albumin Globulin Ratio 1.1 (0.9-2); Alkaline Phosphatase 63 U/L (45-117); Bilirubin,Total 0.7 mg/dl (0.2-1); Globulin 3.9 gm/dl (2.5-4.0); Phosphorus 2.7 mg/dl (2.5-4.9); Troponin I 0.035 ng/ml (0-0.045)
[2020-05-01] MEDS ORDERED: OPTIRAY 320 125ml IV PRN (19:08)
[2020-05-01] MEDS ORDERED: NITROGLYCERIN SL 0.4 MG/TAB TAB SL PRN (19:16)
--- NOTE | 2020-05-01 19:38 | CT Scan Report ---
CT ANGIOGRAM OF THE CHEST CLINICAL HISTORY: Atypical chest pain. COMPARISON STUDY: Chest x-ray dated 05/01/2020. TECHNIQUE: Following the IV administration of 118 cc of Optiray 320, CT angiogram of the chest was pe rformed from the upper abdomen to the thoracic inlet utilizing the pulmonary embolus protocol. Images are reviewed in the axial, sagittal, and coronal planes. 3-D MIPS images are created and assessed. I V contrast was administered without complication. A dose lowering technique was utilized adhering to the principles of ALARA. CT DOSE: 950.30 mGy.cm FINDINGS: Thyroid: Imaged portions of the thyroid gland are normal in size and attenuation. Thoracic aorta: There is mild atherosclerotic calcification of the thoracic aorta, which is normal in caliber and demonstrates standard 3-vessel arch anatomy. No dissection is seen. Pulmonary vasculature: The pulmonary trunk is normal in caliber. There are no filling defects identif ied in main, lobar, or segmental pulmonary branches to suggest pulmonary embolus. Heart: The heart is top normal in size and without pericardial effusion. The coronary arteries are de nsely calcified. Lungs and pleural spaces: There is no airspace consolidation or pleural effusion. The trachea and juan daniel tral airways are clear. A 4 mm left lower lobe pulmonary nodule is seen on image #88. An 8 mm pleural -based nodule in the left lower lobe as seen on image #153. A 3 mm left upper lobe nodule is seen on image #2013. A 4 mm right upper lobe nodule is seen on image #174, and there are 2 right middle lobe nodules measuring up to 4 mm seen on images #124 and #111. A calcified granuloma is noted at the righ t lung base. Mediastinum: There is no mediastinal lymphadenopathy. Cheri: Clear. Axillae: There is no axillary lymphadenopathy. Upper abdomen: There are numerous calcified gallstones. A small hiatal hernia is observed. Bilateral adrenal nodules measuring up to 2.[address] criteria for fat-containing adenomas. Diverticula are noted in the partially imaged left colon. An 11 mm cyst is noted in the left lobe of the liver. Skeletal structures: No lytic or blastic bony lesions are seen. Degenerative change is noted in the s houlders. IMPRESSION: 1. There is no evidence of pulmonary embolus in the main, lobar, or segmental pulmonary arteries. 2. There is no airspace consolidation or pleural effusion. 3. There are at several (less than 10) small pulmonary nodules measuring up to 8 mm. These are pathol ogically indeterminant and can be followed as per the Fleischner criteria. 4. Cholelithiasis. 5. Advanced coronary artery calcification. 6. Additional findings as above. Please refer to below summary of Fleischner criteria recommendations for follow-up of incidental CT n odules (Thong Andersen, Guidelines for management of small pulmonary nodules detected on CT scans: A sta tement from the Fleischner Society, Radiology 237: [id number].) SOLID NODULES Solitary nodule size: <6 mm * low risk patients: no follow-up needed * high risk patients: optional CT at 12 months Solitary nodule size: 6-8 mm * low risk patients: follow-up at 6-12 months, then consider further follow-up at 18-24 months * high risk patients: initial follow-up CT at 6-12 months and then at 18-24 months if no change Solitary nodule size: >8 mm * either low or high risk patients - consider follow-up CT at 3 months, and/or CT-PET, and/or biopsy Multiple nodules size: <6 mm * low risk patients: no routine follow-up * high risk patients: optional CT at 12 months Multiple nodules size: 6-8 mm * low risk patients: follow-up at 3-6 months, then consider further follow-up at 18-24 months * high risk patients: follow-up at 3-6 months, then at 18-24 months if no change Multiple nodules size: >8 mm * low risk patients: follow-up at 3-6 months, then consider further follow-up at 18-24 months * high risk patients: follow-up at 3-6 months, then at 18-24 months if no change Note: newly detected indeterminate nodule in persons 35 years of age or older. * low risk patients: minimal or absent history of smoking and/or other known risk factors * high risk patients: history of smoking or of other known risk factors (e.g. first degree relative with lung cancer, or exposure to asbestos, radon, uranium) * if a nodule up to 8 mm is partly solid or is ground glass further follow-up is required after 24 m onths to exclude possible slow growing adenocarcinoma (OTONIEL) SUBSOLID NODULES Solitary pure ground-glass nodule * nodule size <6 mm - no CT follow-up required * nodule size >=6 mm - follow-up CT at 6-12 months, then every 2 years until 5 years Solitary part-solid nodule * nodule size <6 mm - no CT follow-up required * nodule size >=6 mm - follow-up CT at 3-6 months. If unchanged, and solid component remains <6 mm, then annual follow-up for 5 years Multiple subsolid nodules * nodule size <6 mm - follow-up CT at 3-6 months, consider further follow-up at 2 and 4 years if sta ble * nodule size >=6 mm - follow-up CT at 3-6 months, subsequent management based on the most suspiciou s nodule(s) ACT 112: Negative or not required by law. Electronically signed by: Yemi Barbosa M.D. 05/01/2020 7:36 PM
[2020-05-01] MEDS ORDERED: ASPIRIN CHEW 324 MG PO STA (20:10)
--- NOTE | 2020-05-01 21:46 | History & Physical Report ---
Date of Service May 01, 2020 Assessment & Plan (1) Angina pectoris: (2) CAD (coronary artery disease): Pt is 65 y/o M with PMH CAD, solitary kidney s/p L nephrectomy for UPJ obstruction, HTN, dyslipidemia, DM II, obesity presented to ER with c/o CP. Today onset chest pain and chest heaviness with left arm heaviness and SOB after loading and moving camper that has been persistent. H/O ongoing CP with exertion that resolves with rest in approx 5 minutes. H/O cardiac cath in 06/[address] Chavira with severe CAD small caliber D2 vessel, nonobstructive CAD to LAD & RCA. At that time medical therapy was optimized with recommendation if recurrent symptoms may need to consider further cardiac intervention. In ER pt afebrile, BP: 226/106 down to 177/86, P: 74, R: 16, Pulse ox 97% on RA. No leukocytosis, Initial troponin: 0.035. EKG sinus rhythm with nonspecific t wave changes, no acute ST elevation In ER pt given 2 SL nitro with relief of CP, ASA 324mg po, 500ml NSS R/O ACS. Risk factors: HTN, hyperlipidemia, DM, obesity, CAD, FH CAD -Monitor Vitals -Place nitro paste -Repeat EKG in am -Will trend troponin -NPO midnight -Echo -lipid panel in am, continue statin -Continue aspirin, carvedilol, atorvastatin, Ranexa -Will hold isosorbide at this time with nitropaste -Cardiology consult, pt [place] [facility] [place] past and would like to continue (3) Hypertension: BP's elevated in ER, improved after SL nitro -Dose pt's night time BP meds -Continue carvedilol, nifedipine, lisinopril, HCTZ (4) Diabetes mellitus, type 2: A1c: 6.6 in 12/2018 -Hold metformin -Novolog sliding scale per protocol (5) Solitary kidney: solitary kidney s/p L nephrectomy for UPJ obstruction -Avoid nephrotoxic agents when possible DVT Prophylaxis -Heparin SQ Full Code as per discussion with pt Follows with Dr Carter for routine care Pt was seen and care coordinated with Dr Puentes. See addendum History of Present Illness Chief Complaint: CP Primary Care Provider: Jeet Carter MD Pt is 65 y/o M with PMH CAD, solitary kidney s/p L nephrectomy for UPJ obstruction, HTN, dyslipidemia, DM II, obesity presented to ER with c/o CP. Pt states has CP described as heaviness and sharp pain that occurs with exertion such as mowing the lawn. He states he rests and then pain resolves in approx 5 minutes. He has never taken SL nitro for this. 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 Also had heaviness sensation to left arm. Symptoms persisted throughout the afternoon and evening and then presented to ER. Pt states was sweating from working in the heat all day and didn't notice any increased diaphoresis with this. Denies any associated dizziness, sycnope, N/V, neck or jaw pain. H/O cardiac cath in 06/[address] Chavira with severe CAD small caliber D2 vessel, nonobstructive CAD to LAD & RCA. At that time medical therapy was optimized with recommendation if recurrent symptoms may need to consider further cardiac intervention. Denies fever/chills, N/V/D/C, TONG, dizziness, syncope, vision changes, neck pain, orthopnea, palpitations, cough, sore throat, choking, otalgia, rhinorrhea, abdominal pain, paresthesias, weakness, extremity weakness, extremity edema, rashes, urinary symptoms. Allergies Allergy/AdvReac Type Severity Reaction Status Date / Time No Known Allergies Allergy Verified 05/01/20 20:56 Home Medications Home Medications Medication Instructions Recorded Confirmed Type buspirone 5 mg PO TID PRN 06/15/18 05/01/20 History hydrochlorothiazide 12.5 mg PO QAM 06/15/18 05/01/20 History lisinopril 40 mg PO DAILY 06/15/18 05/01/20 History aspirin 81 mg PO QAM 04/26/19 05/01/20 History carvedilol 37.5 mg PO BID 04/26/19 05/01/20 History finasteride 5 mg PO QAM 04/26/19 05/01/20 History metformin 500 mg PO BID 04/26/19 05/01/20 History tramadol 25 - 50 mg PO TID PRN #10 tab 04/28/19 05/01/20 Rx nitroglycerin 0.4 mg sublingual 0.4 mg SL DIRECTED PRN #25 tab 05/27/19 05/01/20 History tablet atorvastatin 20 mg PO HS 12/12/19 05/01/20 History nifedipine 30 mg PO QPM 12/12/19 05/01/20 History terazosin 5 mg PO HS 12/12/19 05/01/20 History isosorbide mononitrate 120 mg 120 mg PO QAM #30 tab 02/19/20 05/01/20 Rx tablet,extended release 24 hr ranolazine 1,000 mg 1,000 mg PO Q12H #180 tab 03/04/20 05/01/20 Rx tablet,extended release,12 hr Past Med/Surg History Medical History Diabetes mellitus, type 2 Diverticular disease History of hypotension Hyperlipidemia Hypertension (Acute) Solitary kidney Surgical History History of nephrectomy left History of tonsillectomy and adenoidectomy Family History Father Coronary heart disease Social History Smoking Status: Former smoker Tobacco Type: Smokeless Tobacco (Dip or Chew) Cigarettes Per Day: 40; Second Hand Exposure: No; Do You Dip or Chew Tobacco: Yes; Tobacco Cessation Education Requested by Patient: No Hx Alcohol Use: Yes Alcohol type: beer Hx Substance Use: No Preferred Language: Bengali Communication Ability: Effective Traffic Control Technician Required: No Beliefs That Will Affect Care: None Current Living Situation: Spouse Current Living Situation Comment: House Other Information That Helps Us Care for You: No Feels Safe at Home: Yes Safety Concerns: Feels Safe At This Time Review of Systems Review of Systems: All systems reviewed & are unremarkable except as noted in HPI & below Physical Exam Physical Exam: General: no distress, obese Head: normocephalic, atraumatic Eyes: PERRL, EOM's intact, conjunctiva non-injected, anicteric ENT: normal inspection external ears, nose, mucous membranes moist Neck: supple, trachea midline Lungs: clear, no respiratory distress, no wheezing/rhonchi/rales CV: RRR, no murmur, no pretibial edema Abd: normal BS, soft, protuberant, non-tender Ext: no cyanosis, no calf tenderness Neuro: A&O x 3, no focal deficits noted, normal affect Skin: warm, dry Results & Data Results & Data ([facility]) Vital Signs (Past 12 Hours) Vital Signs Temp Pulse Pulse Resp BP BP Pulse Ox 05/01/20 21:34 67 16 177/86 H 97 05/01/20 21:00 67 18 171/88 H 97 05/01/20 19:50 67 16 180/94 H 97 05/01/20 18:50 67 18 196/96 H 98 05/01/20 17:08 36.9 C 74 20 226/106 H 94 Laboratory Results Short CBC 05/01/20 Range/Units 18:30 WBC 10.44 (4.8-10.8) K/uL Hgb 14.7 (14.0-18.0) g/dL Hct 42.8 (42-52) % Plt Count 268 (130-400) K/uL BMP 05/01/20 18:30 Sodium 138 Potassium 3.8 Chloride 106 Carbon Dioxide 24 BUN 14 Creatinine 1.18 Glucose 93 Calcium 9.4 Cardiac Enzymes 05/01/20 Range/Units 18:30 Troponin I 0.035 (0-0.045) ng/ml Liver Function 05/01/20 Range/Units 18:30 Total Bilirubin 0.7 (0.2-1) mg/dl AST 27 (15-37) U/L ALT 32 (12-78) U/L Alkaline Phosphatase 63 (45-117) U/L Albumin 4.1 (3.4-5.0) gm/dl Diagnostic Findings CXR: IMPRESSION: No active disease in the chest. CTA CHEST: IMPRESSION: 1. There is no evidence of pulmonary embolus in the main, lobar, or segmental pulmonary arteries. 2. There is no airspace consolidation or pleural effusion. 3. There are at several (less than 10) small pulmonary nodules measuring up to 8 mm. These are pathologically indeterminant and can be followed as per the Fleischner criteria. 4. Cholelithiasis. 5. Advanced coronary artery calcification. 6. Additional findings as above. ECG Additional Comments: poor tracing. rate 74, sinus rhythm, t wave inversion in III and t wave flattening in AVF Code Status & VTE Plan VTE Prophylaxis Plan VTE Prophylaxis will be ordered: Yes Supervising Physician Co-Signing Physician Notes Care coordinated with Beth Ann PA-C. Agree with above note. Patient seen and examined. Please refer to her notes for full details. Vital signs reviewed. Physical exam: General exam: Alert and oriented. Not in acute distress. CVS: S1 and S2 heard, regular rate and rhythm, no murmurs. RS: Clear to auscultation, no wheezing or crackles. ABD: Soft, bowel sounds present, nontender, no distention. PSYCHIATRIC NURSE: Nonfocal. EXT: No edema, no erythema. Labs: Reviewed. Assessment and plan: 65M with hx of HTN, DM, Solitary kidney and hx of non obstructive CAD presents with ongoing chest pain and sob on exertion but today pain was severe . Initial ekg was ok. Intial troponin was ok. BP was high. Started on nitro paste. Symptoms improved but repeat troponin was 2.4. At that time repeat ekg was ok and patient was asymptomatic. Started on iv heparin for nstemi. echo. Cardio consult. Gentle fluids and npo. Close monitor in tele. Other diagnosis and plan of care as per Beth Ann PA-C.. Ferdinand pierre MD. (1) Hypertension Hypertension type: unspecified Qualified Code(s): I10 - Essential (primary) hypertension
[2020-05-01] MEDS ORDERED: CARBOHYDRATES FOR HYPOGLYCEMIA PO PRN (22:11)
[2020-05-01] MEDS ORDERED: TRAMADOL HCL 50 MG TABLET PO PRN (22:11)
[2020-05-01] MEDS ORDERED: GLUCOSE 40% GEL 15 GM TUBE PO PRN (22:11)
[2020-05-01] MEDS ORDERED: GLUCOSE 10 TABS/TUBE PO PRN (22:11)
[2020-05-01] MEDS ORDERED: GLUCAGON FOR INJ 1 MG VIAL SQ PRN (22:11)
[2020-05-01] MEDS ORDERED: HEPARIN SOD 5,000 UNIT/0.5 ML VIAL SQ SCH (22:11)
[2020-05-01] MEDS ORDERED: ACETAMINOPHEN 325 MG TAB PO PRN (22:11)
[2020-05-01] MEDS ORDERED: DEXTROSE 50% 50 ML SYRINGE IV PRN (22:11)
[2020-05-01] MEDS: carvediloL 25 MG TAB PO SCH (22:47)
[2020-05-01] MEDS: RANOLAZINE 500 MG ER TAB PO SCH (22:48)
[2020-05-01] MEDS ORDERED: SODIUM CHLORIDE 0.9% 1000ML 1,000 ML IV SCH (23:45)
[2020-05-01] MEDS ORDERED: HEPARIN SODIUM/DEXTROSE 25,000 UNITS/500 ML BAG IV SCH (23:45)
[2020-05-01] MEDS: NITROGLYCERIN 2% OINTMENT 30GM TUBE EXT SCH (23:50)
[2020-05-01] MEDS: Heparin IV Standard *NO* Bolus IV SCH (23:58)
[2020-05-02] MEDS ORDERED: NITROGLYCERIN 2% OINTMENT 30GM TUBE EXT SCH
[2020-05-02] MEDS: Heparin IV Standard *NO* Bolus IV SCH (00:04)
[2020-05-02] MEDS ORDERED: Nursing to Pharmacy Communication SCH ×2 (00:45→22:30)
[2020-05-02] MEDS: NITROGLYCERIN 2% OINTMENT 30GM TUBE EXT SCH ×4 (06:08→23:43)
[2020-05-02] MEDS: INSULIN ASPART 100 UNITS/ML 3 ML PEN SC SCH ×4 (06:12→22:15)
[2020-05-02 06:53] LABS: Hematocrit (blood only) 41.5 % (42-52); Hemoglobin 13.8 g/dL (14.0-18.0); Mean Corpuscular Hemoglobin 27.5 pg (25-34); Mean Corpuscular Hgb Conc 33.3 g/dL (32-36); Mean Corpuscular Volume 82.7 fL (80-100); Mean Platelet Volume 10.6 fL (7.4-10.4); Platelet Count 283 K/uL (130-400); RDW Coefficient of Variation 14.3 % (11.5-14.5); RDW Standard Deviation 43.6 fL (36.4-46.3); Red Blood Count 5.02 M/uL (4.7-6.1); White Blood Count 9.84 K/uL (4.8-10.8)
[2020-05-02 06:55] LABS: Estimated Average Glucose 137 mg/dl; Hemoglobin A1C 6.4 % (4.5-5.6)
[2020-05-02 07:19] LABS: BUN Creatinine Ratio 9.4 (10-20); Calcium 8.6 mg/dl (8.5-10.1); Creatinine Clr Calc Pharmacy 84.6 ml/min; Est GFR (African American) 87.9; Est GFR (Non-African American) 75.9; Potassium 3.9 mmol/L (3.5-5.1)
[2020-05-02 07:21] LABS: Partial Thromboplastin Ratio 3.3
[2020-05-02 07:26] LABS: Partial Thromboplastin Time 92.7 Seconds (21.0-31.0)
[2020-05-02] MEDS ORDERED: INSULIN ASPART 100 UNITS/ML 3 ML PEN SC SCH (07:30)
[2020-05-02 07:41] LABS: Troponin I 8.47 ng/ml (0-0.045)
[2020-05-02] MEDS: carvediloL 25 MG TAB PO SCH ×2 (08:20→20:47)
[2020-05-02] MEDS: hydroCHLOROthiazide 25 MG TAB PO SCH (08:21)
[2020-05-02] MEDS: FINASTERIDE 5 MG TAB PO SCH (08:21)
[2020-05-02] MEDS: ASPIRIN 81 MG ECTAB PO SCH (08:21)
[2020-05-02] MEDS: RANOLAZINE 500 MG ER TAB PO SCH ×2 (08:22→20:50)
[2020-05-02] MEDS: lisinopriL 40 MG TAB PO SCH (08:22)
[2020-05-02] MEDS ORDERED: MoRPHine SULFATE 2 MG/ML CARP IV STA (09:12)
--- NOTE | 2020-05-02 09:22 | Hospitalist Progress Note ---
Date of Service May 02, 2020 Assessment & Plan (1) Angina pectoris: (2) CAD (coronary artery disease): non-ST segment elevation myocardial infarction is suspected -Pt is 65 y/o M with PMH CAD, solitary kidney s/p L nephrectomy for UPJ obstruction, HTN, dyslipidemia, DM II, obesity presented to ER with c/o CP. Today onset chest pain and chest heaviness with left arm heaviness and SOB after loading and moving camper that has been persistent. H/O ongoing CP with exertion that resolves with rest in approx 5 minutes. -H/O cardiac cath in 06/[address] Chavira with severe CAD small caliber D2 vessel, nonobstructive CAD to LAD & RCA. At that time medical therapy was optimized with recommendation if recurrent symptoms may need to consider further cardiac intervention. -In ER pt afebrile, BP: 226/106 down to 177/86, P: 74, R: 16, Pulse ox 97% on RA. No leukocytosis, Initial troponin: 0.035. EKG sinus rhythm with nonspecific t wave changes, no acute ST elevation In ER pt given 2 SL nitro with relief of CP, ASA 324mg po, 500ml NSS R/O ACS. Risk factors: HTN, hyperlipidemia, DM, obesity, CAD, FH CAD -he was started on IV heparin -patient started on nitro paste on admission, isosorbide at this time with nitropaste -has been continued other home medications aspirin, carvedilol, atorvastatin, Ranexa, HCTZ -patient reports that the severe chest pain resolved in the ED and on exam in 05/02/2020, patient reports some minimal chest discomforts. He denies dizziness and no other pain elsewhere. He is breathing on room air, saturating well, and generally appears comfortable. Patient was able to undergo the bedside echocardiogram -because his troponins clarissa from first negative troponins and rising to 2.46 and 8.47 on this admission, I called Dr. Mckeon the cardiology clinical sales consultant and asked him to evaluate whether patient should be on medication therapy alone for NSTEMI versus considering the role of cardiac catheterization on this admission. He will further evaluate (3) Hypertension: -management as above (4) Diabetes mellitus, type 2: HbA1c: 6.6 in 12/2018, 6.4 on this admission -Hold metformin -Novolog sliding scale per protocol (5) Solitary kidney: solitary kidney s/p L nephrectomy for UPJ obstruction -Avoid nephrotoxic agents when possible DVT Prophylaxis -Heparin SQ Admission and Anticipated Discharge Date Admission Date: May 01, 2020 Subjective -patient reports that the severe chest pain resolved in the ED and on exam in 05/02/2020, patient reports some minimal chest discomforts. He denies dizziness and no other pain elsewhere. He is breathing on room air, saturating well, and generally appears comfortable. Patient was able to undergo the bedside echocardiogram -because his troponins clarissa from first negative troponins and rising to 2.46 and 8.47 on this admission, I called Dr. Mckeon the cardiology clinical sales consultant and asked him to evaluate whether patient should be on medication therapy alone for NSTEMI versus considering the role of cardiac catheterization on this admission. He will further evaluate Review of Systems Review of Systems: All systems reviewed & are unremarkable except as noted in Subjective Physical Exam Constitutional: WD/WN, vitals as above + obese Eyes: PERRL, conjunctivae normal, anicteric sclerae EOM intact bilaterally ENMT: external ear and nose normal, oropharynx normal Neck: trachea midline, no thyromegaly normal visual inspection Respiratory: normal respiratory effort, lungs clear to auscultation Gastrointestinal (Abdomen): normal bowel sounds, soft, nontender, no hepatosplenomegaly Musculoskeletal: Head/Neck/Chest: normocephalic and head atraumatic Neurologic: PERRL, EOMI, accommodation nl, no face palsy, no dysarthria CN's II-XI intact bilaterally Psychiatric: A+Ox3, euthymic affect Results & Data Results & Data ([facility]) Vital Signs (Past 12 Hours) Vital Signs Temp Pulse Pulse Resp BP BP Pulse Ox 05/02/20 08:23 67 180/103 H 05/02/20 08:00 66 05/02/20 03:12 36.6 C 62 20 167/92 H 96 05/02/20 01:27 61 166/90 H 05/01/20 23:51 37.0 C 66 18 190/99 H 95 05/01/20 21:59 37.1 C 67 20 207/135 H 99 05/01/20 21:34 67 16 177/86 H 97 (1) Hypertension Hypertension type: unspecified Qualified Code(s): I10 - Essential (primary) hypertension
--- NOTE | 2020-05-02 09:40 | Cardiology Consultation ---
Date of Consultation May 02, 2020 Assessment & Plan (1) Chest pain: His chest pain appears to be due to cardiac ischemia, given its sudden onset, no other explanation for it and a rising troponin and ongoing discomfort I believe he has an acute coronary syndrome and should have invasive evaluation. I discussed it with him and he is agreeable. We will make those arrangements today. (2) CAD (coronary artery disease): He has known coronary artery disease, he has not been having angina with medical therapy and this was sudden onset and continuous suggesting there is been acute change in his coronary status. This will need to be elucidated by invasive evaluation. (3) Hypertension: He is quite hypertensive, will need to try to adjust his medications if this continues over the long run. He is on carvedilol 37.5 mg twice a day, lisinopril 40 mg daily, nifedipine 30 mg at bedtime and hydrochlorothiazide 12.5 mg daily. He is also on nitroglycerin ointment 1 inch every 6 hours. I am reluctant to give him a lot of antihypertensives in addition to that on the way to the Regulatory Services Consultant. History of Present Illness Reason for Consultation: Chest pain, elevated troponin Attending Physician: Thanh Watkins MD History of Present Illness This is a 65-year-old male with a history of hypertension, dyslipidemia and known coronary artery disease. He presented in June 2018 with chest discomfort and had a catheterization performed on June 15, 2018. He had a 40% mid LAD stenosis and some nonobstructive distal LAD disease as well as a tight stenosis of a small caliber second diagonal. There was only minor disease in other vessels. Medical therapy was planned. We followed him until November 2018 and have not seen him since. At that time we were planning on seeing him again in 6 months. He presents now with chest discomfort. On presentation his troponin was 2.5, this AM it was 8.5. I do not see another troponin measurement. His electrocardiogram on presentation shows sinus rhythm at [address]-T abnormalities but no acute changes. A repeat electrocardiogram this morning shows sinus rhythm at 66 bpm with a slightly prolonged QT interval (although I am not sure it is much different than on presentation) and no significant ST elevation although there is very slight diffuse J-point elevation of questionable significance. A chest CT on arrival was unremarkable. 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 He then was moving his trailer which was not tremendously difficult and suddenly developed chest discomfort. It did not resolve and he came into the emergency room. It is a substernal chest discomfort without radiation. It is not something he has experienced before, in the past when he had chest discomfort it would last for a brief period of time and then resolved. This discomfort is still present although improved. He can feel some slight substernal discomfort. He is not short of breath and has had no palpitations. Allergies Allergy/AdvReac Type Severity Reaction Status Date / Time No Known Allergies Allergy Verified 05/01/20 20:56 Home Medications Home Medications Medication Instructions Recorded Confirmed Type buspirone 5 mg PO TID PRN 06/15/18 05/01/20 History hydrochlorothiazide 12.5 mg PO QAM 06/15/18 05/01/20 History lisinopril 40 mg PO DAILY 06/15/18 05/01/20 History aspirin 81 mg PO QAM 04/26/19 05/01/20 History carvedilol 37.5 mg PO BID 04/26/19 05/01/20 History finasteride 5 mg PO QAM 04/26/19 05/01/20 History metformin 500 mg PO BID 04/26/19 05/01/20 History tramadol 25 - 50 mg PO TID PRN #10 tab 04/28/19 05/01/20 Rx nitroglycerin 0.4 mg sublingual 0.4 mg SL DIRECTED PRN #25 tab 05/27/19 05/01/20 History tablet atorvastatin 20 mg PO HS 12/12/19 05/01/20 History nifedipine 30 mg PO QPM 12/12/19 05/01/20 History terazosin 5 mg PO HS 12/12/19 05/01/20 History isosorbide mononitrate 120 mg 120 mg PO QAM #30 tab 02/19/20 05/01/20 Rx tablet,extended release 24 hr ranolazine 1,000 mg 1,000 mg PO Q12H #180 tab 03/04/20 05/01/20 Rx tablet,extended release,12 hr Patient History Medical History Diabetes mellitus, type 2 Diverticular disease History of hypotension Hyperlipidemia Hypertension (Acute) Solitary kidney Surgical History History of nephrectomy left History of tonsillectomy and adenoidectomy Family History Father Coronary heart disease Social History Smoking Status: Former smoker Tobacco Type: Smokeless Tobacco (Dip or Chew) Cigarettes Per Day: 40; Second Hand Exposure: No; Do You Dip or Chew Tobacco: Yes; Tobacco Cessation Education Requested by Patient: No Hx Alcohol Use: Yes Alcohol type: beer Hx Substance Use: No Preferred Language: Albanian Communication Ability: Effective 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 HEENT: Unremarkable Neck: No jugular venous distention, carotid pulses are normal and equal bilaterally without bruits. Pulmonary: Clear to auscultation bilaterally. Cardiac: Regular rhythm with no murmur, gallop or rub. Abdomen: Soft, nontender with normal bowel sounds. Extremities: No edema. Distal pulses intact. Neurologic: No focal findings. Gait is steady. Skin: No rash, ecchymoses or petechiae. Results & Data ([facility]) Vital Signs (Past 12 Hours) Vital Signs Temp Pulse Pulse Resp BP Pulse Ox 05/02/20 08:23 67 180/103 H 05/02/20 08:00 66 05/02/20 03:12 36.6 C 62 20 167/92 H 96 05/02/20 01:27 61 166/90 H 05/01/20 23:51 37.0 C 66 18 190/99 H 95 05/01/20 21:59 37.1 C 67 20 207/135 H 99 Diagnostic Findings Cardiac Enzymes 05/01/20 05/01/20 05/02/20 Range/Units 18:30 22:38 06:16 AST 27 (15-37) U/L Troponin I 0.035 2.460 H* 8.470 H* (0-0.045) ng/ml Coagulation 05/01/20 05/02/20 Range/Units 18:30 06:16 PT 11.3 (9.0-12.0) Seconds APTT 30.5 92.7 H* (21.0-31.0) Seconds Lipids 05/02/20 Range/Units 06:16 Triglycerides 93 (0-150) mg/dl Cholesterol 114 (0-200) mg/dl HDL Cholesterol 39 mg/dl Cholesterol/HDL Ratio 3 CBC 05/01/20 05/02/20 Range/Units 18:30 06:16 WBC 10.44 9.84 (4.8-10.8) K/uL RBC 5.29 5.02 (4.7-6.1) M/uL Hgb 14.7 13.8 L (14.0-18.0) g/dL Hct 42.8 41.5 L (42-52) % Plt Count 268 283 (130-400) K/uL Neut # (Auto) 6.44 (1.4-6.5) K/uL Lymph # (Auto) 2.83 (1.2-3.4) K/uL [place] # (Auto) 1.01 H (0.11-0.59) K/uL Eos # (Auto) 0.11 (0-0.5) K/uL Baso # (Auto) 0.02 (0-0.2) K/uL Comprehensive Metabolic Panel 05/01/20 05/02/20 Range/Units 18:30 06:16 Sodium 138 140 (136-145) mmol/L Potassium 3.8 3.9 (3.5-5.1) mmol/L Chloride 106 108 H (98-107) mmol/L Carbon Dioxide 24 28 (21-32) mmol/L BUN 14 10 (7-18) mg/dl Creatinine 1.18 1.03 (0.6-1.4) mg/dl Glucose 93 117 H (70-99) mg/dl Calcium 9.4 8.6 (8.5-10.1) mg/dl AST 27 (15-37) U/L ALT 32 (12-78) U/L Alkaline Phosphatase 63 (45-117) U/L Total Protein 8.0 (6.4-8.2) gm/dl Albumin 4.1 (3.4-5.0) gm/dl Intake and Output 05/01/20 05/02/20 05/02/20 22:59 06:59 14:59 Intake Total 500 / 500 933.25 / 933.25 Balance 500 / 500 933.25 / 933.25 Intake: IV 500 / 500 933.25 / 933.25 HEPARIN SODIUM/DEXTROSE 25,000 224.5 / 224.5 units In 500 ml @ 1,500 UNITS/ HR 30 mls/hr IV .[id number] BRANDON Rx #:[id number] Nss 1000ML 1,000 ml @ 75 mls/hr 708.75 / 708.75 IV .[id number] BRANDON Rx#:[id number] Nss 500 ml @ 999 mls/hr IV . 500 / 500 Q31M ONE Rx#:[id number] Other: Other Intake Source NPO # Unmeasured Voids 2 Weight 111.7 kg 110 kg Telemetry: Sinus rhythm, no significant abnormality PG Care Time/CCT Total # of Minutes Spent Total Time Spent with Patient: Total time spent is greater than 50% in coordination of care (as documented) at patient's floor/unit and/or counseling patient: Coding Level of Care Code 36470 Inpt Consult Level 5 Diagnoses Chest pain R07.9 CAD (coronary artery disease) I25.10 Hypertension I10 Hypertension type: unspecified (1) Hypertension Hypertension type: unspecified Qualified Code(s): I10 - Essential (primary) hypertension
[2020-05-02] MEDS ORDERED: NiCARDipine HCL INJ 2.5 MG/ML 10 ML AMP ONE (10:40)
[2020-05-02] MEDS ORDERED: HEPARIN (PORCINE) 1000 UNIT/ML 10 ML (CATH LAB USE ONLY) ONE (10:40)
[2020-05-02] MEDS ORDERED: MIDAZOLAM HCL 1 MG/ML 2ML VIAL ONE (10:41)
[2020-05-02] MEDS ORDERED: fentaNYL citrate 100 MCG/2 ML VIAL ONE (10:41)
[2020-05-02] MEDS ORDERED: NITROGLYCERIN/D5W 100MCG/ML 20ML SYR ONE (10:42)
[2020-05-02 11:19] LABS: Partial Thromboplastin Ratio 2.3
[2020-05-02 11:31] LABS: Partial Thromboplastin Time 64.7 Seconds (21.0-31.0)
--- NOTE | 2020-05-02 11:36 | XCELERA ---
[id number] \\[id number]
--- NOTE | 2020-05-02 11:43 | Cardiac Catheterization ---
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 otherwise non obstructive disease Hemodynamics Rest Ao:: 15-/110 Final Ao: 148/104 LV: not done Recommendations Recommendations: Medical Therapy and/or Counseling Specimens Specimens: None Radiation Exposure (mGy) 4.0 Contrast (mls) 45 Procedural Complication(s) None Disposition ICU I attest to the content of the Intraoperative Record and any orders documented therein. Any exceptions are noted below. 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 Cardiac Status Clinical evaluation leading to the procedure unstable angina know cad CAD Presenation: Non STEMI Anginal Classification: CCS II Heart Failure: No Cardiogenic Shock within 24 Hours: No Cardiac Arrest within 24 Hours: No Imaging Studies Past 6 Months: No Stress Studies Past 6 Months: No STEMI OR Non-STEMI Symptom Onset Date: 05/01/20 Thrombolytics: No Coronary Anatomy Dominant: Right OM1 (% Stenosis): Ostial (100% small om1) Diagnostic Physicians Name: Kenna Arias Closure Device Percutaneous Entry Location: Radial Closure Device: None-Manual Hold Recommendations: Medical Therapy and/or Counseling PCI Indication: Angina despite med therapy First Noted: Subsequent EKG Lesion Segment Name: OM1 Culprit Artery: Yes Stenosis Prior to Rx (%): 100 Chronic Total Occlusion: Yes IVUS: No FFR: No Previously Treated Lesion: No Lesion Complexity: High/C Lesion Length (mm): 10 Thrombus Present: No Bifurcation Lesion: Yes Guidewire Across Lesion: No Intraprocedure Events Significant Disection: No Perforation: No
[2020-05-02] MEDS: CLOPIDOGREL BISULFATE 75 MG TAB PO SCH (12:26)
[2020-05-02] MEDS ORDERED: ACETAMINOPHEN 325 MG TAB PO PRN (13:23)
[2020-05-02] MEDS ORDERED: SODIUM CHLORIDE 0.9% 1000ML 1,000 ML IV SCH (13:30)
[2020-05-02] MEDS ORDERED: LORazepam 0.25 MG/0.5 ML VIAL IV PRN (18:33)
[2020-05-02] MEDS ORDERED: TERAZOSIN HCL 5 MG CAP PO SCH (21:00)
[2020-05-02] MEDS ORDERED: NIFEdipine EXTENDED REL 30 MG TABCR PO SCH (21:00)
[2020-05-02] MEDS ORDERED: ATORVASTATIN 20 MG TAB PO SCH (21:00)
[2020-05-03] MEDS: NITROGLYCERIN 2% OINTMENT 30GM TUBE EXT SCH ×2 (06:10→12:58)
[2020-05-03] MEDS: ASPIRIN 81 MG ECTAB PO SCH (07:49)
[2020-05-03] MEDS: RANOLAZINE 500 MG ER TAB PO SCH (07:49)
[2020-05-03] MEDS: hydroCHLOROthiazide 25 MG TAB PO SCH (07:50)
[2020-05-03] MEDS: CLOPIDOGREL BISULFATE 75 MG TAB PO SCH (07:50)
[2020-05-03] MEDS: lisinopriL 40 MG TAB PO SCH (07:50)
[2020-05-03] MEDS: carvediloL 25 MG TAB PO SCH (07:50)
[2020-05-03] MEDS: FINASTERIDE 5 MG TAB PO SCH (07:51)
[2020-05-03] MEDS: INSULIN ASPART 100 UNITS/ML 3 ML PEN SC SCH ×2 (07:55→13:01)
--- NOTE | 2020-05-03 09:31 | Cardiology Progress Note ---
Date of Service May 03, 2020 Assessment & Plan (1) Chest pain: His chest pain appears to have been due to a small NSTEMI. Now resolved. (2) CAD (coronary artery disease): He has known coronary artery disease, he has not been having angina with medical therapy and now has an occluded vessel. I would limit activities, especially in hot weather for several weeks. I suspect he steven not have angina now. (3) Hypertension: He is quite hypertensive, will need to try to adjust his medications if this continues over the long run. He is normotensive now. Admission and Anticipated Discharge Date Admission Date: May 01, 2020 Subjective Feels well, no chest pain, minor R wrist pain. Physical Exam Physical Exam: Constitutional: Alert, cooperative and in no distress. HEENT: Unremarkable Neck: No jugular venous distention, carotid pulses are normal and equal bilaterally without bruits. Pulmonary: Clear to auscultation bilaterally. Cardiac: Regular rhythm with no murmur, gallop or rub. Abdomen: Soft, nontender with normal bowel sounds. Extremities: No edema. Distal pulses intact. R wrist cath site looks good. Neurologic: No focal findings. Gait is steady. Skin: No rash, ecchymoses or petechiae. Results & Data ([facility]) Vital Signs (Past 12 Hours) Vital Signs Temp Pulse Resp BP Pulse Ox 05/03/20 07:10 36.5 C 71 20 127/80 96 05/03/20 03:03 36.6 C 62 19 142/75 H 95 05/02/20 23:08 36.4 C L 62 19 145/85 H 95 05/02/20 21:48 94 H 178/106 H Laboratory Results Cardiac Enzymes 05/02/20 05/02/20 Range/Units 10:23 10:29 Troponin I Cancelled 7.350 H* Coagulation 05/02/20 Range/Units 10:29 APTT 64.7 H* (21.0-31.0) Seconds Intake and Output 05/02/20 05/03/20 05/03/20 22:59 06:59 14:59 Intake Total 575 / 2385.783 753.333 / 2385.783 Balance 575 / 2385.783 753.333 / 2385.783 Intake: IV 753.333 / 1810.783 Nss 1000ML 1,000 ml @ 80 mls/hr 753.333 / 753.333 IV .[id number] BRANDON Rx#:[id number] Oral 575 / 575 Other: Other Intake Source sips # Unmeasured Voids 3 PG Care Time/CCT Total # of Minutes Spent Total Time Spent with Patient: Total time spent is greater than 50% in coordination of care (as documented) at patient's floor/unit and/or counseling patient: Coding Level of Care Code 84661 Subseq Hosp Care Lvl 2 Diagnoses Chest pain R07.9 CAD (coronary artery disease) I25.10 Hypertension I10 Hypertension type: unspecified (1) Hypertension Hypertension type: unspecified Qualified Code(s): I10 - Essential (primary) hypertension
[2020-05-03 09:32] LABS: Basophils # (auto) 0.01 K/uL (0-0.2); Basophils % (auto) 0.1 %; Eosinophils # (auto) 0.07 K/uL (0-0.5); Hematocrit (blood only) 41.9 % (42-52); Hemoglobin 13.6 g/dL (14.0-18.0); Immature Granulocytes # (auto) 0.02 K/uL (0.00-0.02); Immature Granulocytes % (auto) 0.3 %; Lymphocytes # (auto) 1.79 K/uL (1.2-3.4); Lymphocytes % (auto) 26.5 %; Mean Corpuscular Hgb Conc 32.5 g/dL (32-36); Mean Corpuscular Volume 83.3 fL (80-100); Mean Platelet Volume 10.6 fL (7.4-10.4); Monocytes # (auto) 0.52 K/uL (0.11-0.59); Monocytes % (auto) 7.7 %; Neutrophils # (auto) 4.35 K/uL (1.4-6.5); Neutrophils % (auto) 64.4 %; Platelet Count 261 K/uL (130-400); RDW Coefficient of Variation 14.3 % (11.5-14.5); RDW Standard Deviation 43.9 fL (36.4-46.3); Red Blood Count 5.03 M/uL (4.7-6.1); White Blood Count 6.76 K/uL (4.8-10.8)
[2020-05-03 10:04] LABS: Albumin Level 3.5 gm/dl (3.4-5.0); BUN Creatinine Ratio 11.7 (10-20); Calcium 9.1 mg/dl (8.5-10.1); Creatinine Clr Calc Pharmacy 68.1 ml/min; Est GFR (African American) 67.6; Est GFR (Non-African American) 58.3; Potassium 3.7 mmol/L (3.5-5.1)
[2020-05-03 10:09] LABS: Bilirubin,Total 0.6 mg/dl (0.2-1); Globulin 3.5 gm/dl (2.5-4.0); Troponin I 4.66 ng/ml (0-0.045)
[2020-05-03] MEDS ORDERED: SODIUM CHLORIDE 0.9% 1000ML 1,000 ML IV SCH (11:00)
--- NOTE | 2020-05-03 13:11 | Hospitalist Progress Note ---
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 Today onset chest pain and chest heaviness with left arm heaviness and SOB after loading and moving camper that has been persistent. H/O ongoing CP with exertion that resolves with rest in approx 5 minutes. -H/O cardiac cath in 06/[address] Chavira with severe CAD small caliber D2 vessel, nonobstructive CAD to LAD & RCA. At that time medical therapy was optimized with recommendation if recurrent symptoms may need to consider further cardiac intervention. -In ER pt afebrile, BP: 226/106 down to 177/86, P: 74, R: 16, Pulse ox 97% on RA. No leukocytosis, Initial troponin: 0.035. EKG sinus rhythm with nonspecific t wave changes, no acute ST elevation In ER pt given 2 SL nitro with relief of CP, ASA 324mg po, 500ml NSS R/O ACS. Risk factors: HTN, hyperlipidemia, DM, obesity, CAD, FH CAD -he was started on IV heparin -patient started on nitro paste on admission, isosorbide at this time with nitropaste -has been continued other home medications aspirin, carvedilol, atorvastatin, Ranexa, HCTZ -patient reports that the severe chest pain resolved in the ED and on exam in 05/02/2020, patient reports some minimal chest discomforts. He denies dizziness and no other pain elsewhere. He is breathing on room air, saturating well, and generally appears comfortable. Patient was able to undergo the bedside echocardiogram -05/02/2020 because his troponins clarissa from first negative troponins and rising to 2.46 and 8.47 on this admission, I called Dr. Mckeon the cardiology stock and station agent and asked him to evaluate whether patient should be on medication therapy alone for NSTEMI versus considering the role of cardiac catheterization on this admission. -s/p cardiac catheterization on 05/02/2020and found to have small first obtuse marginal artery (OM1) occlusion which was not amenable for cardiac stent placement -was started on clopidogrel 75 mg daily starting on 05/02/2020 to lower risk of of future coronary artery plaque obstruction, discharge medication is sent electronically to [facility] pharmacy [address] [place] [id number] -Patient should make an appointment to follow up with primary care Dr. Carter and [facility] cardiology clinic in 1 to 2 weeks of hospital discharge. -Because he his cardiac cath access site was of the right wrist, patient should avoid lifting objects above 10 pounds with the right hand for [address] Castrejon of cardiology comments that patient should "limit activities, especially in hot weather for several weeks. 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 Thoracic aorta: There is mild atherosclerotic calcification of the thoracic aorta, which is normal in caliber and demonstrates standard 3-vessel arch anatomy. No dissection is seen. Pulmonary vasculature: The pulmonary trunk is normal in caliber. There are no filling defects identified in main, lobar, or segmental pulmonary branches to suggest pulmonary embolus. Heart: The heart is top normal in size and without pericardial effusion. The coronary arteries are densely calcified. Lungs and pleural spaces: There is no airspace consolidation or pleural effusion. The trachea and central airways are clear. A 4 mm left lower lobe pulmonary nodule is seen on image #88. An 8 mm pleural-based nodule in the left lower lobe as seen on image #153. A 3 mm left upper lobe nodule is seen on image #2013. A 4 mm right upper lobe nodule is seen on image #174, and there are 2 right middle lobe nodules measuring up to 4 mm seen on images #124 and #111. A calcified granuloma is noted at the right lung base. Mediastinum: There is no mediastinal lymphadenopathy. Cheri: Clear. Axillae: There is no axillary lymphadenopathy. Upper abdomen: There are numerous calcified gallstones. A small hiatal hernia is observed. Bilateral adrenal nodules measuring up to 2.[address] criteria for fat-containing adenomas. Diverticula are noted in the partially imaged left colon. An 11 mm cyst is noted in the left lobe of the liver. Skeletal structures: No lytic or blastic bony lesions are seen. Degenerative change is noted in the shoulders. IMPRESSION: 1. There is no evidence of pulmonary embolus in the main, lobar, or segmental pulmonary arteries. 2. There is no airspace consolidation or pleural effusion. 3. There are at several (less than 10) small pulmonary nodules measuring up to 8 mm. These are pathologically indeterminant and can be followed as per the Fleischner criteria. 4. Cholelithiasis. 5. Advanced coronary artery calcification. -Because of abnormal CTA chest findings, patient should discuss with primary care doctor about follow up for the pulmonary (lung nodules) as per the Fleischner criteria versus to be evaluated by outpatient pulmonary doctor. Patient will be given a copy of the CTA scan results and CD of the images to take to his primary care doctor. Patient should also have creatinine level by primary care doctor since he had IV contrast for CTA study and dye contrast from cardiac catheterization on this admission Admission and Anticipated Discharge Date Admission Date: May 01, 2020 Subjective Patient ambulatory today. no chest pain on the bed and when walking. He is getting IV fluids before he is to be discharged from the hospital. breathing on room air. no shortness of breath. no abdomen pain. no nausea. no vomiting. discharge plans and follow ups discussed at length Review of Systems Review of Systems: All systems reviewed & are unremarkable except as noted in Subjective Physical Exam Constitutional: WD/WN, vitals as above + obese Eyes: PERRL, conjunctivae normal, anicteric sclerae EOM intact bilaterally ENMT: external ear and nose normal, oropharynx normal Neck: trachea midline, no thyromegaly normal visual inspection Respiratory: normal respiratory effort, lungs clear to auscultation Cardiovascular: Rate/Rhythm: regular rate and regular rhythm Gastrointestinal (Abdomen): normal bowel sounds, soft, nontender, no hepatosplenomegaly Musculoskeletal: Head/Neck/Chest: normocephalic and head atraumatic Neurologic: PERRL, EOMI, accommodation nl, no face palsy, no dysarthria CN's II-XI intact bilaterally Psychiatric: A+Ox3, euthymic affect Results & Data Results & Data ([facility]) Vital Signs (Past 12 Hours) Vital Signs Temp Pulse Pulse Resp BP Pulse Ox 05/03/20 11:28 36.5 C 65 20 126/77 96 05/03/20 08:00 58 L 05/03/20 07:10 36.5 C 71 20 127/80 96 05/03/20 03:03 36.6 C 62 19 142/75 H 95 (1) Hypertension Hypertension type: unspecified Qualified Code(s): I10 - Essential (primary) hypertension
--- NOTE | 2020-05-03 13:19 | Discharge Summary ---
Date of Service May 03, 2020 Admission HPI Per Admitting Provider Pt is 65 y/o M with PMH CAD, solitary kidney s/p L nephrectomy for UPJ obstruction, HTN, dyslipidemia, DM II, obesity presented to ER with c/o CP. Pt states has CP described as heaviness and sharp pain that occurs with exertion such as mowing the lawn. He states he rests and then pain resolves in approx 5 minutes. He has never taken SL nitro for this. 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 Also had heaviness sensation to left arm. Symptoms persisted throughout the afternoon and evening and then presented to ER. Pt states was sweating from working in the heat all day and didn't notice any increased diaphoresis with this. Denies any associated dizziness, sycnope, N/V, neck or jaw pain. H/O cardiac cath in 06/[address] Chavira with severe CAD small caliber D2 vessel, nonobstructive CAD to LAD & RCA. At that time medical therapy was optimized with recommendation if recurrent symptoms may need to consider further cardiac intervention. Denies fever/chills, N/V/D/C, TONG, dizziness, syncope, vision changes, neck pain, orthopnea, palpitations, cough, sore throat, choking, otalgia, rhinorrhea, abdominal pain, paresthesias, weakness, extremity weakness, extremity edema, rashes, urinary symptoms. Principal Diagnosis non-ST segment elevation myocardial infarction from CAD (coronary artery disease) (s/p cardiac catheterization on 05/02/2020and found to have small first obtuse marginal artery (OM1) occlusion which was not amenable for cardiac stent placement) Hypertension Type 2 diabetes mellitus without care home current use of insulin Pulmonary nodules Cholelithiasis Solitary kidney (absence of left kidney) Discharge Exam Constitutional WD/WN, vitals as above + obese Eyes PERRL, conjunctivae normal, anicteric sclerae EOM intact bilaterally ENMT external ear and nose normal, oropharynx normal Neck trachea midline, no thyromegaly normal visual inspection Respiratory normal respiratory effort, lungs clear to auscultation Cardiovascular Rate/Rhythm: regular rate and regular rhythm Gastrointestinal (Abdomen) normal bowel sounds, soft, nontender, no hepatosplenomegaly Musculoskeletal Head/Neck/Chest: normocephalic and head atraumatic Neurologic PERRL, EOMI, accommodation nl, no face palsy, no dysarthria CN's II-XI intact bilaterally Psychiatric A+Ox3, euthymic affect Discharge Data Allergies Allergy/AdvReac Type Severity Reaction Status Date / Time No Known Allergies Allergy Verified 05/01/20 20:56 Consultations 05/01/20 20:10 ED Decision to Admit Stat 05/01/20 22:11 Consult Cardiology Routine 05/02/20 07:27 Consult Case Management - Discharge Planning Routine 05/03/20 12:28 Burn CD for patient Routine Burn CD for patient Stat Procedures Performed Operation Date: 05/02/20 10:45 Actual Procedures p Cineradiography w/Routine Exam - Kenna Arias Ordered Studies 05/01/20 18:06 CT angio chest PE protocol Stat 05/02/20 10:41 CL Cath Imgs for PACS use only Stat Hospital Course (1) Angina pectoris: (2) CAD (coronary artery disease): non-ST segment elevation myocardial infarction from CAD (coronary artery disease) (s/p cardiac catheterization on 05/02/2020and found to have small first obtuse marginal artery (OM1) occlusion which was not amenable for cardiac stent placement) Hypertension -Pt is 65 y/o M with PMH CAD, solitary kidney s/p L nephrectomy for UPJ obstruction, HTN, dyslipidemia, DM II, obesity presented to ER with c/o CP. Today onset chest pain and chest heaviness with left arm heaviness and SOB after loading and moving camper that has been persistent. H/O ongoing CP with exertion that resolves with rest in approx 5 minutes. -H/O cardiac cath in 06/[address] Chavira with severe CAD small caliber D2 vessel, nonobstructive CAD to LAD & RCA. At that time medical therapy was optimized with recommendation if recurrent symptoms may need to consider further cardiac intervention. -In ER pt afebrile, BP: 226/106 down to 177/86, P: 74, R: 16, Pulse ox 97% on RA. No leukocytosis, Initial troponin: 0.035. EKG sinus rhythm with nonspecific t wave changes, no acute ST elevation In ER pt given 2 SL nitro with relief of CP, ASA 324mg po, 500ml NSS R/O ACS. Risk factors: HTN, hyperlipidemia, DM, obesity, CAD, FH CAD -he was started on IV heparin -patient started on nitro paste on admission, isosorbide at this time with nitropaste -has been continued other home medications aspirin, carvedilol, atorvastatin, Ranexa, HCTZ -patient reports that the severe chest pain resolved in the ED and on exam in 05/02/2020, patient reports some minimal chest discomforts. He denies dizziness and no other pain elsewhere. He is breathing on room air, saturating well, and generally appears comfortable. Patient was able to undergo the bedside echocardiogram -05/02/2020 because his troponins clarissa from first negative troponins and rising to 2.46 and 8.47 on this admission, I called Dr. Mckeon the cardiology airborne electronics analyst and asked him to evaluate whether patient should be on medication therapy alone for NSTEMI versus considering the role of cardiac catheterization on this admission. -s/p cardiac catheterization on 05/02/2020and found to have small first obtuse marginal artery (OM1) occlusion which was not amenable for cardiac stent placement -was started on clopidogrel 75 mg daily starting on 05/02/2020 to lower risk of of future coronary artery plaque obstruction, discharge medication is sent electronically to [facility] pharmacy [address] [place] [address], [place] [id number] -Patient should make an appointment to follow up with primary care Dr. Carter and [facility] cardiology clinic in 1 to 2 weeks of hospital discharge. -Because he his cardiac cath access site was of the right wrist, patient should avoid lifting objects above 10 pounds with the right hand for [address] Castrejon of cardiology comments that patient should "limit activities, especially in hot weather for several weeks. " (3) Hypertension: -nitro paste can be taken off on 05/02/2020, patient to resume home dose isosorbide starting on 05/03/2020 as discussed with him -continue other home medications for blood pressure (4) Diabetes mellitus, type 2: Type 2 diabetes mellitus without care home current use of insulin -HbA1c: 6.6 in 12/2018, 6.4 on this admission -Hold metformin -Novolog sliding scale per protocol (5) Solitary kidney: Solitary kidney (absence of left kidney) -solitary kidney s/p L nephrectomy for UPJ obstruction in the past -he has been given IV fluids on 05/02/2020 and 05/03/2020 Pulmonary nodules Cholelithiasis -CTA chest 05/01/2020 Thyroid: Imaged portions of the thyroid gland are normal in size and attenuation. Thoracic aorta: There is mild atherosclerotic calcification of the thoracic aorta, which is normal in caliber and demonstrates standard 3-vessel arch anatomy. No dissection is seen. Pulmonary vasculature: The pulmonary trunk is normal in caliber. There are no filling defects identified in main, lobar, or segmental pulmonary branches to suggest pulmonary embolus. Heart: The heart is top normal in size and without pericardial effusion. The coronary arteries are densely calcified. Lungs and pleural spaces: There is no airspace consolidation or pleural effusion. The trachea and central airways are clear. A 4 mm left lower lobe pulmonary nodule is seen on image #88. An 8 mm pleural-based nodule in the left lower lobe as seen on image #153. A 3 mm left upper lobe nodule is seen on image #2013. A 4 mm right upper lobe nodule is seen on image #174, and there are 2 right middle lobe nodules measuring up to 4 mm seen on images #124 and #111. A calcified granuloma is noted at the right lung base. Mediastinum: There is no mediastinal lymphadenopathy. Cheri: Clear. Axillae: There is no axillary lymphadenopathy. Upper abdomen: There are numerous calcified gallstones. A small hiatal hernia is observed. Bilateral adrenal nodules measuring up to 2.[address] criteria for fat-containing adenomas. Diverticula are noted in the partially imaged left colon. An 11 mm cyst is noted in the left lobe of the liver. Skeletal structures: No lytic or blastic bony lesions are seen. Degenerative change is noted in the shoulders. IMPRESSION: 1. There is no evidence of pulmonary embolus in the main, lobar, or segmental pulmonary arteries. 2. There is no airspace consolidation or pleural effusion. 3. There are at several (less than 10) small pulmonary nodules measuring up to 8 mm. These are pathologically indeterminant and can be followed as per the Fleischner criteria. 4. Cholelithiasis. 5. Advanced coronary artery calcification. -Because of abnormal CTA chest findings, patient should discuss with primary care doctor about follow up for the pulmonary (lung nodules) as per the Fleischner criteria versus to be evaluated by outpatient pulmonary doctor. Patient will be given a copy of the CTA scan results and CD of the images to take to his primary care doctor. Patient should also have creatinine level by primary care doctor since he had IV contrast for CTA study and dye contrast from cardiac catheterization on this admission Total Time Total Time Spent Total Time Spent (In Minutes): 40 minutes Total Time Includes: Examination of the Patient, Discharge Planning, Medication Reconciliation and Communication With Other Providers Discharge Plan Discharge Items Patient Disposition: Home - Self-Care Reason For Visit: CP Discharge Diagnosis: non-ST segment elevation myocardial infarction from CAD (coronary artery disease) (s/p cardiac catheterization on 05/02/2020and found to have small first obtuse marginal artery (OM1) occlusion which was not amenable for cardiac stent placement) Hypertension 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 Pulmonary nodules Cholelithiasis Solitary kidney (absence of left kidney) Condition on Discharge: Good Activity: Per Instructions section Non-emergency contact: Primary Care Provider and [facility] [employer] Call non-emergency contact if: you have any medication questions Follow-up/Referrals: Jeet Carter MD [Primary Care Provider] - Diet: Carb Consistent or DM2 and Low Fat Addtl Attending Provider Instructions: s/p cardiac catheterization on 05/02/2020and found to have small first obtuse marginal artery (OM1) occlusion which was not amenable for cardiac stent placement was started on clopidogrel 75 mg daily starting on 05/02/2020 to lower risk of of future coronary artery plaque obstruction, discharge medication is sent electronically to [facility] pharmacy [address] [place] [address] Patient should make an appointment to follow up with primary care Dr. Carter and [facility] cardiology clinic in 1 to 2 weeks of hospital discharge. Because he his cardiac cath access site was of the right wrist, patient should avoid lifting objects above 10 pounds with the right hand for [address] Castrejon of cardiology comments that patient should "limit activities, especially in hot weather for several weeks. " Because of abnormal CTA chest findings, patient should discuss with primary care doctor about follow up for the pulmonary (lung nodules) as per the Fleischner criteria versus to be evaluated by outpatient pulmonary doctor. Patient will be given a copy of the CTA scan results and CD of the images to take to his primary care doctor. Patient should also have creatinine level by primary care doctor since he had IV contrast for CTA study and dye contrast from cardiac catheterization on this admission scheduled appointments 10/12/2020 10:20 AM Provider Jeet Carter MD [facility] Car Rental Manager Provider Instructions: CTA chest 05/01/2020 Thyroid: Imaged portions of the thyroid gland are normal in size and attenuati on. Thoracic aorta: There is mild atherosclerotic calcification of the thoracic aorta, which is normal in caliber and demonstrates standard 3-vessel arch anatomy. No dissection is seen. Pulmonary vasculature: The pulmonary trunk is normal in caliber. There are no filling defects identified in main, lobar, or segmental pulmonary branches to suggest pulmonary embolus. Heart: The heart is top normal in size and without pericardial effusion. The coronary arteries are densely calcified. Lungs and pleural spaces: There is no airspace consolidation or pleural effusion. The trachea and central airways are clear. A 4 mm left lower lobe pulmonary nodule is seen on image #88. An 8 mm pleural-based nodule in the left lower lobe as seen on image #153. A 3 mm left upper lobe nodule is seen on image #2013. A 4 mm right upper lobe nodule is seen on image #174, and there are 2 right middle lobe nodules measuring up to 4 mm seen on images #124 and #111. A calcified granuloma is noted at the right lung base. Mediastinum: There is no mediastinal lymphadenopathy. Cheri: Clear. Axillae: There is no axillary lymphadenopathy. Upper abdomen: There are numerous calcified gallstones. A small hiatal hernia is observed. Bilateral adrenal nodules measuring up to 2.[address] criteria for fat-containing adenomas. Diverticula are noted in the partially imaged left colon. An 11 mm cyst is noted in the left lobe of the liver. Skeletal structures: No lytic or blastic bony lesions are seen. Degenerative change is noted in the shoulders. IMPRESSION: 1. There is no evidence of pulmonary embolus in the main, lobar, or segmental pulmonary arteries. 2. There is no airspace consolidation or pleural effusion. 3. There are at several (less than 10) small pulmonary nodules measuring up to 8 mm. These are pathologically indeterminant and can be followed as per the Fleischner criteria. 4. Cholelithiasis. 5. Advanced coronary artery calcification. Pending Studies at Discharge: No Stand-Alone Forms: [employer], Smoking Cessation Medications and DC Order Prescriptions: New clopidogrel 75 mg Tablet 75 mg PO QAM 30 Days Qty: 30 RF: 0 Continued isosorbide mononitrate 120 mg tablet extended release 24 hr 120 mg PO QAM Qty: 30 RF: 5 ranolazine 1,000 mg tablet extended release 12 hr 1,000 mg PO Q12H Qty: 180 RF: 1 nitroglycerin 0.4 mg tablet, sublingual 0.4 mg SL DIRECTED PRN (Reason: Chest Pain) Qty: 25 RF: 0 buspirone 5 mg Tablet 5 mg PO TID PRN (Reason: Anxiety) RF: 0 lisinopril 40 mg Tablet 40 mg PO DAILY RF: 0 hydrochlorothiazide 12.5 mg Tablet 12.5 mg PO QAM RF: 0 metformin 500 mg tablet 500 mg PO BID RF: 0 carvedilol 25 mg tablet 37.5 mg PO BID RF: 0 aspirin 81 mg Tablet,Delayed Release (Dr/Ec) 81 mg PO QAM RF: 0 finasteride 5 mg tablet 5 mg PO QAM RF: 0 tramadol 50 mg tablet 25 - 50 mg PO TID PRN (Reason: Pain) Qty: 10 RF: 0 terazosin 5 mg capsule 5 mg PO HS RF: 0 atorvastatin 20 mg tablet 20 mg PO HS RF: 0 nifedipine 30 mg tablet extended release 30 mg PO QPM RF: 0 Discharge Orders: Discharge Order (Routine); Ordered 05/03/20 Ordered By: Thanh Cruz/Other Patient Handouts: Managing Type 2 Diabetes Admission Data Admit Date/Time: 05/01/20 21:05 Attending Provider: Thanh Watkins Admit Provider: Ferdinand Puentes Primary Care Provider: Jeet Carter Other Providers: Ferdinand Puentes ; Phil Mckeon
--- NOTE | 2020-05-04 12:37 | Electrocardiogram Report ---
Test Reason : Blood Pressure : / mmHG Vent. Rate : 074 BPM Atrial Rate : 074 BPM P-R Int : 172 ms QRS Dur : 098 ms QT Int : 416 ms P-R-T Axes : 019 018 004 degrees QTc Int : 461 ms Poor data quality, interpretation may be adversely affected Normal sinus rhythm T-wave inversion in Inferior leads Abnormal ECG When compared with ECG of 23-JUL-2017 03:04, Inverted T waves have replaced nonspecific T wave abnormality in Inferior leads Confirmed by Phil Mckeon ([id number]) on 05/04/2020 12:36:50 PM Referred By: REFERRED SELF Confirmed By:Phil Mckeon
--- NOTE | 2020-05-04 12:58 | Electrocardiogram Report ---
Test Reason : Blood Pressure : / mmHG Vent. Rate : 061 BPM Atrial Rate : 061 BPM P-R Int : 180 ms QRS Dur : 102 ms QT Int : 458 ms P-R-T Axes : 015 001 005 degrees QTc Int : 461 ms Normal sinus rhythm Normal ECG When compared with ECG of 01-MAY-2020 17:12, (unconfirmed) No significant change was found Confirmed by Phil Mckeon ([id number]) on 05/04/2020 12:58:08 PM Referred By: REFERRED SELF Confirmed By:Phil Mckeon
--- NOTE | 2020-05-04 13:14 | Electrocardiogram Report ---
Test Reason : Blood Pressure : / mmHG Vent. Rate : 066 BPM Atrial Rate : 066 BPM P-R Int : 184 ms QRS Dur : 106 ms QT Int : 464 ms P-R-T Axes : 059 049 064 degrees QTc Int : 486 ms Normal sinus rhythm Prolonged QT Abnormal ECG When compared with ECG of 01-MAY-2020 23:45, (unconfirmed) T wave inversion no longer evident in Inferior leads Confirmed by Phil Mckeon ([id number]) on 05/04/2020 1:13:56 PM Referred By: REFERRED SELF Confirmed By:Phil Mckeon
== END 2020-05-03 19:49 | disposition home or self-care (01) | DRG 282 ==
LOC: ED 16:50 → 2E 21:05 → SUATTDRO 21:05 → 2E 21:34
PROC: CLB.CCO (2020-05-02 10:45)

== ENCOUNTER 2022-05-19 22:37 | Observation (INO) ==
[2022-05-19 23:27] LABS: Alanine Aminotransferase 13 U/L (7-52); Albumin Globulin Ratio 1.3 (0.9-2); Albumin Level 4.2 gm/dl (3.4-5.0); Alkaline Phosphatase 62 U/L (34-104); Anion Gap 10 (3-11); Aspartate Aminotransferase 16 U/L (13-39); BUN Creatinine Ratio 13.7 (10-20); Bilirubin,Total 0.4 mg/dl (0.2-1.0); Blood Urea Nitrogen 21 mg/dl (6-23); Calcium 9.9 mg/dl (8.5-10.1); Carbon Dioxide 26 mmol/L (21-32); Chloride 103 mmol/L (98-107); Est GFR (African American) 53.7 ml/min; Est GFR (Non-African American) 46.4 ml/min; Globulin 3.3 gm/dl (2.5-4.0); Glucose 101 mg/dl (70-99(Fasting)); Potassium 4.4 mmol/L (3.5-5.1); Sodium 139 mmol/L (136-145); Total Protein 7.5 gm/dl (6.0-8.3)
[2022-05-19 23:28] LABS: Hematocrit (blood only) 43.9 % (40.1-51.0); Hemoglobin 14.1 g/dl (14.0-18.0); Mean Corpuscular Hemoglobin 26.5 pg (25.0-34.0); Mean Corpuscular Hgb Conc 32.1 g/dL (32.0-36.0); Mean Corpuscular Volume 82.5 fL (80.0-100.0); Platelet Count 252 K/uL (130-400); RDW Coefficient of Variation 13.8 % (11.5-14.5); RDW Standard Deviation 41.5 fL (36.4-46.3); Red Blood Count 5.32 M/uL (4.63-6.08); White Blood Count 13.01 K/ul (4.8-10.8)
[2022-05-19 23:29] LABS: Basophils # (auto) 0.05 K/uL (0-0.2); Basophils % (auto) 0.4 %; Eosinophils # (auto) 0.14 K/uL (0-0.50); Eosinophils % (auto) 1.1 %; Immature Granulocytes # (auto) 0.07 K/uL (0.00-0.02); Immature Granulocytes % (auto) 0.5 %; Lymphocytes # (auto) 3.45 K/uL (1.2-3.4); Lymphocytes % (auto) 26.5 %; Monocytes # (auto) 1.23 K/uL (0.24-0.82); Monocytes % (auto) 9.5 %; Neutrophils # (auto) 8.07 K/uL (1.4-6.5); RBC Morphology Unremarkable
--- NOTE | 2022-05-20 00:36 | Emergency Department Note ---
History of Present Illness General Chief complaint: Chest Pain Stated complaint: CHEST PAIN, VOMITING Time Seen by Provider: 05/20/22 00:25 History of Present Illness This 67-year-old presents to the ER complaining of chest pain today that is relieved with nitroglycerin who had a cardiac catheterization last week Location: Chest Quality: Discomfort Severity: Moderate Duration: Today Timing: Today Context: Patient was concerned and came in Modifying factors: better with nitroglycerin; worse with activity Patient denies dyspnea, abdominal pain, fever, chills, flulike illness. Home Medications Medication Instructions Recorded Confirmed Type buspirone 5 mg tablet 5 mg PO TID PRN Anxiety 06/15/18 05/20/22 History lisinopril 40 mg tablet 40 mg PO DAILY 06/15/18 05/20/22 History aspirin 81 mg tablet,delayed 81 mg PO QAM 04/26/19 05/20/22 History release carvedilol 25 mg tablet 37.5 mg PO BID 04/26/19 05/20/22 History finasteride 5 mg tablet 5 mg PO QAM 04/26/19 05/20/22 History metformin 500 mg tablet 500 mg PO BID 04/26/19 05/20/22 History tramadol 50 mg tablet 25 - 50 mg PO TID PRN Pain #10 tabs 04/28/19 05/20/22 Rx nitroglycerin 0.4 mg sublingual 0.4 mg sublingual DIRECTED PRN 05/27/1905/09 History tablet Chest Pain #25 tabs terazosin 5 mg capsule 5 mg PO HS 12/12/19 05/20/22 History atorvastatin 40 mg tablet 40 mg PO DAILY #30 tabs 05/19/20 05/20/22 Rx nifedipine 60 mg tablet,extended 60 mg PO QPM #90 tabs 07/02/21 05/20/22 Rx release ranolazine 1,000 mg 1,000 mg PO Q12H #180 tabs 09/14/21 05/20/22 Rx tablet,extended release,12 hr isosorbide mononitrate 120 mg 240 mg PO QAM #180 tabs 03/20/22 05/20/22 Rx tablet,extended release 24 hr furosemide 20 mg tablet (Lasix) 20 mg PO DAILY #30 tabs 05/16/22 05/20/22 Rx Allergies Allergy/AdvReac Type Severity Reaction Status Date / Time No Known Allergies Allergy Verified 05/20/22 00:22 Past Med/Surg History Medical History CAD (coronary artery disease) Diabetes mellitus, type 2 Diverticular disease History of hypotension Hyperlipidemia Hypertension Non-ST elevation (NSTEMI) myocardial infarction PVCs (premature ventricular contractions) Solitary kidney Surgical History History of nephrectomy left History of tonsillectomy and adenoidectomy Family History Father Coronary heart disease Social History Smoking Status: Never smoker Tobacco Type: Smokeless Tobacco (Dip or Chew) Cigarettes Per Day: 40; Second Hand Exposure: No; Hx Alcohol Use: Yes Alcohol type: beer Hx Substance Use: No Preferred Language: Micronesian Communication Ability: Effective 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 Required: No Beliefs That Will Affect Care: None Current Living Situation: Spouse Current Living Situation Comment: House Feels Safe at Home: Yes Assistive Devices: None Review of Systems A total of 10 systems reviewed and were otherwise negative Physical Exam Vital Signs Vital Signs - 24 hr 05/19/22 22:40 05/20/22 00:01 05/20/22 00:12 Temperature 37 C Temperature Source Temporal Artery Scan Pulse Rate 90 68 67 Pulse Rate from SpO2 Sensor Respiratory Rate 18 18 19 Respiratory Effort / Characteristics Non-Labored Spontaneous Respiratory Depth Normal Respiratory Pattern Regular Blood Pressure 198/107 H 174/105 H Blood Pressure Mean 137 128 Pulse Oximetry 96 95 Oxygen Delivery Method Room Air Sepsis Recent Fever Within 48 Hours No Sepsis New/Unexplained Change in Mental Status No Sepsis Action Taken by Nursing No Action Required 05/20/22 00:30 05/20/22 01:30 05/20/22 01:30 Temperature Temperature Source Pulse Rate 69 68 Pulse Rate from SpO2 Sensor 67 Respiratory Rate 16 21 Respiratory Effort / Characteristics Respiratory Depth Respiratory Pattern Blood Pressure 180/88 H 187/93 H 187/93 H Blood Pressure Mean 118 124 124 Pulse Oximetry 99 96 Oxygen Delivery Method Sepsis Recent Fever Within 48 Hours Sepsis New/Unexplained Change in Mental Status Sepsis Action Taken by Nursing 05/20/22 02:06 05/20/22 02:30 05/20/22 03:00 Temperature Temperature Source Pulse Rate 64 65 68 Pulse Rate from SpO2 Sensor 65 63 68 Respiratory Rate 16 22 18 Respiratory Effort / Characteristics Respiratory Depth Respiratory Pattern Blood Pressure 222/101 H Blood Pressure Mean 141 Pulse Oximetry 97 92 92 Oxygen Delivery Method Sepsis Recent Fever Within 48 Hours Sepsis New/Unexplained Change in Mental Status Sepsis Action Taken by Nursing VITALS: Vitals are noted on the nurse's note and reviewed by myself. Vital signs hypertensive GENERAL: Pleasant gentleman, in no acute distress, nondiaphoretic, well- developed well-nourished. SKIN: The skin was without rashes, erythema, edema, or bruising. There is no tenting of the skin. Capillary reflex less than 2 seconds. HEAD: Normocephalic atraumatic. EARS: External auditory canals clear, EYES: Pupils equal round and reactive to light and accommodation. Conjunctivae without injection, sclerae without icterus. Extraocular movements intact. NOSE: Patent, turbinates without inflammation or discharge. MOUTH: Mucous membranes moist. Pharynx without erythema or exudate. Uvula midline. Airway patent. Tongue does not deviate. NECK: Supple without nuchal rigidity. No lymphadenopathy. No thyromegaly. Cervical spine is nontender. No JVD. HEART: Regular rate and rhythm LUNGS: Clear to auscultation bilaterally without wheezes, rales or rhonchi. No retractions or accessory muscle use. ABDOMEN: Positive bowel sounds x 4. Normal tympanic percussion. Soft, nontender, without masses or organomegaly. Alatorre sign negative. No guarding or rebound tenderness. No CVA tenderness MUSCULOSKELETAL: No muscle atrophy noted. NEURO: Patient was alert and oriented to person place and time. Normal sensation to light and sharp touch. No focal neurological deficits. Course Administered Medications Discontinued Medications Ioversol (Optiray 320 125ml) 120 ml IV ONCE ONE Stop: 05/20/22 01:23 Last Admin: 05/20/22 01:23 Dose: 120 ml Documented By: [facility] Medical Decision Making Medical Records Attestation: I reviewed the patient's medical records. Home Medications Current Medication List: was personally reviewed by nh Laboratory Data Attestation: I reviewed the patient's lab results. Result diagrams: 05/19/22 22:50 05/19/22 22:50 Lab Results 05/19/22 05/19/22 05/19/22 Range/Units 22:50 22:50 22:50 WBC 13.01 H (4.8-10.8) K/ul RBC 5.32 (4.63-6.08) M/uL Hgb 14.1 (14.0-18.0) g/dl Hct 43.9 (40.1-51.0) % MCV 82.5 (80.0-100.0) fL MCH 26.5 (25.0-34.0) pg MCHC 32.1 (32.0-36.0) g/dL RDW Std Deviation 41.5 (36.4-46.3) fL RDW Coeff of Gage 13.8 (11.5-14.5) % Plt Count 252 (130-400) K/uL MPV 11.0 (9.4-12.4) fL Immature Gran % (Auto) 0.5 % Neut % (Auto) 62.0 % Lymph % (Auto) 26.5 % [place] % (Auto) 9.5 % Eos % (Auto) 1.1 % Baso % (Auto) 0.4 % Neut # (Auto) 8.07 H (1.4-6.5) K/uL Lymph # (Auto) 3.45 H (1.2-3.4) K/uL [place] # (Auto) 1.23 H (0.24-0.82) K/uL Eos # (Auto) 0.14 (0-0.50) K/uL Baso # (Auto) 0.05 (0-0.2) K/uL Immature Gran # (Auto) 0.07 H (0.00-0.02) K/uL RBC Morphology Unremarkable PT Cancelled INR Cancelled APTT Cancelled PTT Ratio Cancelled Sodium 139 (136-145) mmol/L Potassium 4.4 (3.5-5.1) mmol/L Chloride 103 (98-107) mmol/L Carbon Dioxide 26 (21-32) mmol/L Anion Gap 10 (3-11) BUN 21 (6-23) mg/dl Creatinine 1.53 H (0.6-1.4) mg/dl Est Cr Clr Drug Dosing Not Reportable Est GFR ( Amer) 53.7 ml/min Est GFR (Non-Af Amer) 46.4 ml/min BUN/Creatinine Ratio 13.7 (10-20) Glucose 101 H (70-99(Fasting)) mg/dl Calcium 9.9 (8.5-10.1) mg/dl Total Bilirubin 0.4 (0.2-1.0) mg/dl AST 16 (13-39) U/L ALT 13 (7-52) U/L Alkaline Phosphatase 62 (34-104) U/L Troponin I High Sens 64.0 H* (0-20) pg/ml Total Protein 7.5 (6.0-8.3) gm/dl Albumin 4.2 (3.4-5.0) gm/dl Globulin 3.3 (2.5-4.0) gm/dl Albumin/Globulin Ratio 1.3 (0.9-2) 05/20/22 05/20/22 Range/Units 00:09 00:09 WBC (4.8-10.8) K/ul RBC (4.63-6.08) M/uL Hgb (14.0-18.0) g/dl Hct (40.1-51.0) % MCV (80.0-100.0) fL MCH (25.0-34.0) pg MCHC (32.0-36.0) g/dL RDW Std Deviation (36.4-46.3) fL RDW Coeff of Gage (11.5-14.5) % Plt Count (130-400) K/uL MPV (9.4-12.4) fL Immature Gran % (Auto) % Neut % (Auto) % Lymph % (Auto) % [place] % (Auto) % Eos % (Auto) % Baso % (Auto) % Neut # (Auto) (1.4-6.5) K/uL Lymph # (Auto) (1.2-3.4) K/uL [place] # (Auto) (0.24-0.82) K/uL Eos # (Auto) (0-0.50) K/uL Baso # (Auto) (0-0.2) K/uL Immature Gran # (Auto) (0.00-0.02) K/uL RBC Morphology PT 11.3 INR 1.1 APTT 30.2 PTT Ratio 1.1 Sodium (136-145) mmol/L Potassium (3.5-5.1) mmol/L Chloride (98-107) mmol/L Carbon Dioxide (21-32) mmol/L Anion Gap (3-11) BUN (6-23) mg/dl Creatinine (0.6-1.4) mg/dl Est Cr Clr Drug Dosing Est GFR ( Amer) ml/min Est GFR (Non-Af Amer) ml/min BUN/Creatinine Ratio (10-20) Glucose (70-99(Fasting)) mg/dl Calcium (8.5-10.1) mg/dl Total Bilirubin (0.2-1.0) mg/dl AST (13-39) U/L ALT (7-52) U/L Alkaline Phosphatase (34-104) U/L Troponin I High Sens 59.5 H* (0-20) pg/ml Total Protein (6.0-8.3) gm/dl Albumin (3.4-5.0) gm/dl Globulin (2.5-4.0) gm/dl Albumin/Globulin Ratio (0.9-2) Imaging Data Attestation: I personally reviewed and interpreted this imaging study as follows: MDM Narrative Prior records/ancillary studies reviewed. Triage Nursing notes reviewed. Additional history obtained from family. The patient's history was concerning for chest pain. Differential diagnosis: Etiologies such as cardiac ischemia, aortic dissection, pulmonary embolism, pneumonia, pneumothorax, musculoskeletal, infections, pericarditis, myocarditis, esophageal rupture, gastrointestinal, as well as others were entertained. Physical examination: As above. ER treatment provided: An order was placed for continuous cardiac monitoring. The monitor shows a rate of 60-100 with a sinus rhythm. Patient was observed On reassessment the patient felt better. Diagnostic interpretation by me: #1 the electrocardiogram was negative for pathologic change. Order for chest pain EKG: Normal sinus, normal intervals, no acute ST-T changes. Impression normal sinus rhythm with PAC interpreted by myself I think arrhythmia is unlikely. EKG shows normal sinus rhythm with no interval abnormalities such as QT prolongation or WPW. There are no findings to suggest Brugada syndrome. Cardiac monitoring in the emergency department reveals no tachycardic or bradycardic dysrhythmia. Hypertrophic cardiomyopathy was considered but there are no clear historical elements pointing toward this. EKG is not suggestive. The QRS voltage is not extremely large and there are no suggestive Q waves. #2: EKG ordered for chest pain EKG: Normal sinus, normal intervals, T wave flattening in the inferior leads in V2 V3. Impression normal sinus rhythm with T wave flattening interpreted by myself I think arrhythmia is unlikely. EKG shows no interval abnormalities such as QT prolongation or WPW. There are no findings to suggest Brugada syndrome. Cardiac monitoring in the emergency department reveals no tachycardic or bradycardic dysrhythmia. Hypertrophic cardiomyopathy was considered but there are no clear historical elements pointing toward this. EKG is not suggestive. The QRS voltage is not extremely large and there are no suggestive Q waves. Labs: Troponin elevated and repeat was ordered Imaging studies: CTA CHEST: Comparison: 05/01/2020. No pulmonary embolus or aortic dissection. Atherosclerotic disease of aorta with no aneurysm. Multiple tiny gallstones. Diverticulosis through the colon. Small hiatal hernia. Low-attenuation left liver lobe lesion measuring 8.2 mm, likely simple cyst. Remainder of the visualized upper abdomen unremarkable. Minimal posterior dependent atelectasis. Right middle lobe nodules, best visualized on axial image 56, series 3 measuring 4 mm. These are stable since prior exam 05/01/2020 therefore confirming benign etiology. No further follow-up recommended. Otherwise no acute cardiopulmonary disease. No pleural effusion or pneumothorax. Bilateral general lesions, on the right measuring approximately 2.1 x 1.3 cm and on the left 2.0 x 1.5 cm and Hounsfield units consistent with adenomas. 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 Cardiac Status Clinical evaluation leading to the procedure CAD Presenation: Stable angina Anginal Classification: CCS III Heart Failure: No Cardiogenic Shock within 24 Hours: No Cardiac Arrest within 24 Hours: No Imaging Studies Past 6 Months: Yes Stress Studies Past 6 Months: Yes Standard Exercise Test: Yes - Indeterminant Stress Echocardiogram: Yes - Indeterminant Coronary Anatomy Dominant: Right Diagnostic Physicians Name: Matt Chavira MD Closure Device Percutaneous Entry Location: Radial Closure Device: Radial Band Recommendations: Management Recommendatons Cardiac Cath Procedure Full Procedure Date May 16, 2022 Pre-Procedure Diagnosis Pre-Procedure Diagnosis: Angina and CAD AUC Score AUC Score: 7 Post-Procedure Diagnosis Post-Procedure Diagnosis: Mild CAD and Elevated Intracardiac Pressures Procedure(s) Performed Procedure(s) Performed: Coronary Angiography and Left Heart Cath Dinkey Engine Operator Matt Chavira MD Fence Gate Assembler(s) Shawn Estimated Blood Loss Estimated Blood Loss: < 25 ml Medication(s) Medication(s): Fentanyl, Heparin, Lidocaine 1%, Nicardipine and Versed Summary of Findings Procedures: 1. Coronary angiography 2. Left heart catheterization 3. Moderate sedation Indication: 67-year-old gentleman with a history significant for CAD, type 2 diabetes, hypertension, and dyslipidemia who has been experiencing exertional chest discomfort concerning for angina. He had a nondiagnostic stress echo on 03/04/2022 with poorly visualized stress images. Coronary angiography: 1. Left main: No significant CAD. 2. LAD: Proximal LAD 10-20%. Mid LAD 20-30% and late mid LAD 30-40%. DAVID 3 flow. Large D1. Very small caliber D2 with possible 50% proximal stenosis. Very small caliber D3 and small caliber D 4. 3. Circumflex: Proximal circumflex 30-40%. Very small caliber OM1. Large OM2 with diffuse proximal 30% stenosis. Distally, the circumflex is a small caliber vessel with 40% stenosis. 4. Right coronary artery: RCA is large and dominant. Proximal RCA 10%. Early mid RCA 30-40%. Otherwise, luminal irregularities. PDA and PL without significant CAD. Left heart catheterization: 1. Left ventriculography was not performed. 2. No significant aortic stenosis. 3. Moderately elevated LVEDP; 23 mmHg Moderate sedation: 1. Sedation start time: 10:59 a.m. 2. Sedation end time: 11:38 a.m. Access Site: 1. Left radial artery was used for access as the right radial pulse was not palp able (not attempted). Catheters: 1. AL2 5 German diagnostic catheter used to selectively engage the left main. 2. JR4 5 German diagnostic catheter used to selectively engage the RCA. Impression: 1. Nonobstructive CAD. 2. Moderately elevated left-sided filling pressure. 3. No significant aortic stenosis. Plan: 1. Consider adjustment of diuretic therapy. 2. Risk factor modification. Consultation: A consultation was placed with the hospitalist. The case was discussed and diagnostics were reviewed. The patient was evaluated in the ER for further treatment. Exam and history seem consistent with chest pain with concerns for cardiac in etiology. Troponin was elevated and repeat was ordered. Patient had EKG changes while in the ER. By the evaluation outlined above emergent etiologies such as aortic dissection, pulmonary embolism, pneumonia, pneumothorax, infections, pericarditis, myocarditis, gastrointestinal, as well as others were deemed relatively unlikely. The pt informed about the findings as listed above. All questions were answered and pleased with the treatment. The chart was completed utilizing [employer] Speech voice recognition software. Grammatical errors, random word insertions, pronoun errors, and incomplete sentences are an occassional consequence of this system due to software limitations, ambient noise, and hardware issues. Any formal questions or concerns about the content, text, or information contained within the body of this dictation should be directly addressed to the physician credit control assistant for clarification. Impression & Plan Chest pain, Elevated troponin Discharge Plan Visit Data Chief Complaint: Chest Pain Stated Complaint: CHEST PAIN, VOMITING ED Provider: Olive Moreno ED Midlevel Provider: Aixa Bethea Discharge Problem: Chest pain, Elevated troponin Patient Disposition: Being Evaluated by Hospitalist Condition: Good Forms Stand Alone Forms: My [facility] Prescriptions Prescriptions: No Action ranolazine 1,000 mg tablet extended release 12 hr 1,000 mg PO Q12H Qty: 180 3RF isosorbide mononitrate 120 mg tablet extended release 24 hr 240 mg PO QAM Qty: 180 3RF atorvastatin 40 mg tablet 40 mg PO DAILY Qty: 30 11RF nifedipine 60 mg tablet extended release 60 mg PO QPM Qty: 90 3RF nitroglycerin 0.4 mg tablet, sublingual 0.4 mg SL DIRECTED PRN (Reason: Chest Pain) Qty: 25 Rx Instructions: PLACE ONE TABLET UNDER THE TONGUE EVERY 5 MINUTES FOR UP TO 3 DOSES OVER 15 MINUTES IF NEEDED FOR CHEST PAIN buspirone 5 mg Tablet 5 mg PO TID PRN (Reason: Anxiety) lisinopril 40 mg Tablet 40 mg PO DAILY metformin 500 mg tablet 500 mg PO BID carvedilol 25 mg tablet 37.5 mg PO BID aspirin 81 mg Tablet,Delayed Release (Dr/Ec) 81 mg PO QAM finasteride 5 mg tablet 5 mg PO QAM tramadol 50 mg tablet 25 - 50 mg PO TID PRN (Reason: Pain) Qty: 10 0RF terazosin 5 mg capsule 5 mg PO HS furosemide [Lasix] 20 mg tablet 20 mg PO DAILY Qty: 30 5RF Referrals Referrals: Jeet Carter MD [Primary Care Provider] - : Chest pain Qualifiers: Chest pain type: unspecified Qualified Code(s): R07.9 - Chest pain, unspecified
[2022-05-20 00:39] LABS: INR 1.1 (0.9-1.1); Partial Thromboplastin Ratio 1.1; Partial Thromboplastin Time 30.2 Seconds (21.0-31.0); Prothrombin Time 11.3 Seconds (9.0-12.0)
[2022-05-20] MEDS ORDERED: OPTIRAY 320 125ml IV ONE (01:22)
[2022-05-20] MEDS ORDERED: ISOSORBIDE MONO EXTENDED REL 60 MG TABCR PO STA (03:08)
--- NOTE | 2022-05-20 03:09 | History & Physical Report ---
Date of Service May 20, 2022 Assessment & Plan (1) Chest pain: Plan: Secondary to hypertensive crisis Rule out ACS, history of CAD ARF hx TIA Hyperlipidemia on statin Rx DM2 on oral medications, well-controlled as of recent hemoglobin A1c of 6.10 November 2021 mood disorder, stable past tobacco abuse OBS PCU IV labetalol 1 dose now Titrate home BP meds Cardiology consult Re: Chest pain, hypertensive crisis Follow troponin N.p.o. until patient seen by Cardiology Baseline UA, monitor creatinine response to IVF Appropriate to hold lisinopril and home diuretic Rx until creatinine back to baseline Basal insulin, ISS BG goal 1 10-1 40, carb count coverage DVT prophylaxis per Heparin subcu Full code Text document was generated using iConclude voice recognition software. It may contain grammatical or spelling errors. Kindly contact undersigned for clarification of any documentation item in question. History of Present Illness Chief Complaint: Chest pain Primary Care Provider: Jeet Carter MD History obtained from patient, family, and records. Medical history significant for CAD, hypertension, hyperlipidemia, TIA, BPH, DM2 on oral medications, mood disorder, history UPJ obstruction status post left nephrectomy, past tobacco abuse. Last confinement April 2020 for NSTEMI. Small first obtuse marginal artery occlusion not amenable to cardiac stent placement. 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 Nonobstructive CAD findings. Medical management recommended with consideration of adjustment of diuretic Rx. 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 No cough, no SOB, no diaphoresis. No headache symptoms. SBP 150s at home as per patient. Discomfort relieved by nitroglycerin as per patient. Patient compliant with home medications. Denies dietary indiscretion. No unusual stress at home. Highest SBP of 220s at the ER. Medical History as above Surgical History : Cataract surgeries, tonsillectomy/adenoidectomy, left shoulder surgery, laparoscopic hernia repair Family History : DM, heart disease, cerebral aneurysm Personal/Social history : Past tobacco abuse, occasional EtOH intake, [employer] work Allergies Allergy/AdvReac Type Severity Reaction Status Date / Time No Known Allergies Allergy Verified 05/20/22 00:22 Home Medications Medication Instructions Recorded Confirmed Type buspirone 5 mg tablet 5 mg PO TID PRN Anxiety 06/15/18 05/20/22 History lisinopril 40 mg tablet 40 mg PO DAILY 06/15/18 05/20/22 History aspirin 81 mg tablet,delayed 81 mg PO QAM 04/26/19 05/20/22 History release carvedilol 25 mg tablet 37.5 mg PO BID 04/26/19 05/20/22 History finasteride 5 mg tablet 5 mg PO QAM 04/26/19 05/20/22 History metformin 500 mg tablet 500 mg PO BID 04/26/19 05/20/22 History tramadol 50 mg tablet 25 - 50 mg PO TID PRN Pain #10 tabs 04/28/19 05/20/22 Rx nitroglycerin 0.4 mg sublingual 0.4 mg sublingual DIRECTED PRN 05/27/19 05/20/22 History tablet Chest Pain #25 tabs terazosin 5 mg capsule 5 mg PO HS 12/12/19 05/20/22 History atorvastatin 40 mg tablet 40 mg PO DAILY #30 tabs 05/19/20 05/20/22 Rx nifedipine 60 mg tablet,extended 60 mg PO QPM #90 tabs 07/02/21 05/20/22 Rx release ranolazine 1,000 mg 1,000 mg PO Q12H #180 tabs 09/14/21 05/20/22 Rx tablet,extended release,12 hr isosorbide mononitrate 120 mg 240 mg PO QAM #180 tabs 03/20/22 05/20/22 Rx tablet,extended release 24 hr furosemide 20 mg tablet (Lasix) 20 mg PO DAILY #30 tabs 05/16/22 05/20/22 Rx Past Med/Surg History Medical History CAD (coronary artery disease) Diabetes mellitus, type 2 Diverticular disease History of hypotension Hyperlipidemia Hypertension Non-ST elevation (NSTEMI) myocardial infarction PVCs (premature ventricular contractions) Solitary kidney Surgical History History of nephrectomy left History of tonsillectomy and adenoidectomy Family History Father Coronary heart disease Social History Smoking Status: Never smoker Tobacco Type: Smokeless Tobacco (Dip or Chew) Cigarettes Per Day: 40; Second Hand Exposure: No; Do You Dip or Chew Tobacco: No; Hx Alcohol Use: Yes Alcohol type: beer Hx Substance Use: No Preferred Language: Danish Communication Ability: Effective Quality Specialist Required: No Beliefs That Will Affect Care: None Current Living Situation: Spouse Current Living Situation Comment: House Other Information That Helps Us Care for You: No Feels Safe at Home: Yes Safety Concerns: Feels Safe At This Time Assistive Devices: None Review of Systems Review of Systems: As per HPI, all other systems reviewed and negative Physical Exam Physical Exam: GENERAL: Slightly uncomfortable, pleasant, obese, slightly hard of hearing, no respiratory distress SKIN: Normal color, warm HEENT: [place] palpebral conjunctivae, no ptosis, dry buccal mucosa NECK : Supple, short neck, no tenderness CHEST : CTA, no tenderness HEART : RRR, no obvious murmurs ABDOMEN: Some distention, nontender EXTREMITIES : No LE swelling/tenderness, no other conspicuous deformities noted NEUROLOGIC : Coherent, no facial asymmetry, slightly hard of hearing, no other gross focality Results & Data Results & Data ([facility]) Vital Signs (Past 12 Hours) Vital Signs Temp Pulse Resp BP Pulse Ox O2 Del Method 05/20/22 01:30 68 21 187/93 H 96 05/20/22 00:30 69 16 180/88 H 99 05/20/22 00:12 67 19 05/20/22 00:01 68 18 174/105 H 95 05/19/22 22:40 37 C 90 18 198/107 H 96 Room Air Laboratory Results Laboratory Results WBC 13.01 K/ul (4.8-10.8) H 05/19/22 22:50 RBC 5.32 M/uL (4.63-6.08) 05/19/22 22:50 Hgb 14.1 g/dl (14.0-18.0) 05/19/22 22:50 Hct 43.9 % (40.1-51.0) 05/19/22 22:50 MCV 82.5 fL (80.0-100.0) 05/19/22 22:50 MCH 26.5 pg (25.0-34.0) 05/19/22 22:50 MCHC 32.1 g/dL (32.0-36.0) 05/19/22 22:50 RDW Std Deviation 41.5 fL (36.4-46.3) 05/19/22: RDW Coeff of Gage 13.8 % (11.5-14.5) 05/19/22 22:50 Plt Count 252 K/uL (130-400) 05/19/22 22: MPV 11.0 fL (9.4-12.4) 05/19/22 22:50 Immature Gran % (Auto) 0.5 % 05/19/22 22:50 Neut % (Auto) 62.0 % 05/19/22 22:50 Lymph % (Auto) 26.5 % 05/19/22 22:50 [place] % (Auto) 9.5 % 05/19/22 22:50 Eos % (Auto) 1.1 % 05/19/22 22:50 Baso % (Auto) 0.4 % 05/19/22 22:50 Neut # (Auto) 8.07 K/uL (1.4-6.5) H 05/19/22 22:50 Lymph # (Auto) 3.45 K/uL (1.2-3.4) H 05/19/22 22:50 [place] # (Auto) 1.23 K/uL (0.24-0.82) H 05/19/22 22:50 Eos # (Auto) 0.14 K/uL (0-0.50) 05/19/22 22:50 Baso # (Auto) 0.05 K/uL (0-0.2) 05/19/22 22:50 Immature Gran # (Auto) 0.07 K/uL (0.00-0.02) H 05/19/22 22:50 RBC Morphology Unremarkable 05/19/22 22:50 PT 11.3 Seconds (9.0-12.0) 05/20/22 00:09 INR 1.1 (0.9-1.1) 05/20/22 00:09 APTT 30.2 Seconds (21.0-31.0) 05/20/22 00:09 PTT Ratio 1.1 05/20/22 00:09 Sodium 139 mmol/L (136-145) 05/19/22 22:50 Potassium 4.4 mmol/L (3.5-5.1) 05/19/22 22:50 Chloride 103 mmol/L (98-107) 05/19/22 22:50 Carbon Dioxide 26 mmol/L (21-32) 05/19/22 22:50 Anion Gap 10 (3-11) 05/19/22 22:50 BUN 21 mg/dl (6-23) 05/19/22 22:50 Creatinine 1.53 mg/dl (0.6-1.4) H 05/19/22 22:50 Est Cr Clr Drug Dosing Not Reportable 05/19/22 22:50 Est GFR ( Amer) 53.7 ml/min 05/19/22 22:50 Est GFR (Non-Af Amer) 46.4 ml/min 05/19/22 22:50 BUN/Creatinine Ratio 13.7 (10-20) 05/19/22 22:50 Glucose 101 mg/dl (70-99(Fasting)) H 05/19/22 22:50 Calcium 9.9 mg/dl (8.5-10.1) 05/19/22 22:50 Total Bilirubin 0.4 mg/dl (0.2-1.0) 05/19/22 22:50 AST 16 U/L (13-39) 05/19/22 22:50 ALT 13 U/L (7-52) 05/19/22 22:50 Alkaline Phosphatase 62 U/L (34-104) 05/19/22 22:50 Troponin I High Sens 59.5 pg/ml (0-20) H* 05/20/22 00:09 Total Protein 7.5 gm/dl (6.0-8.3) 05/19/22 22:50 Albumin 4.2 gm/dl (3.4-5.0) 05/19/22 22:50 Globulin 3.3 gm/dl (2.5-4.0) 05/19/22 22:50 Albumin/Globulin Ratio 1.3 (0.9-2) 05/19/22 22:[address] chest initial read: No pulmonaryembolus or aortic dissection. Atherosclerotic disease of aortawith no aneurysm. Multiple tinygallstones. Diverticulosis through the colon. Small hiatal hernia. Low-attenuation left liver lobe lesion measuring 8.2 mm, likelysimple cyst. Remainder of the visualized upper abdomen unremarkable. Minimal posterior dependent atelectasis. Right middle lobe nodules, best visualized on axial image 56, series 3 measuring 4 mm. These are stable since prior exam05/01/2020 therefore confirming benign etiology. No further follow-up recommended. Otherwise no acute cardiopulmonarydisease. No pleural effusion or pneumothorax. Bilateral general lesions, on the right measuring approximately2.1 x 1.3 cmand on the left 2.0 x 1.5 cm and Hounsfield units consistent with adenomas EKG as per my interpretation :Rate 70, NSR, normal axis, T wave flattening inferior leads (1) Chest pain Chest pain type: unspecified Qualified Code(s): R07.9 - Chest pain, unspecified
[2022-05-20] MEDS ORDERED: SODIUM CHLORIDE 0.9% 1000ML 1,000 ML IV ONE (03:12)
[2022-05-20] MEDS ORDERED: LABETALOL HCL IV 5 MG/ML 20ML IV STA (03:45)
[2022-05-20] MEDS ORDERED: NITROGLYCERIN SL 0.4 MG/TAB TAB SL STA (04:31)
[2022-05-20] MEDS ORDERED: traMADol HCL 50 MG TABLET PO PRN (04:37)
[2022-05-20] MEDS ORDERED: HYDROmorphone INJ 0.5 MG/0.5 ML SYR IV PRN (04:37)
[2022-05-20] MEDS ORDERED: PROMETHAZINE HCL 12.5 MG in SODIUM CHLORIDE 0.9% 50 ML IV PRN (04:37)
[2022-05-20 05:29] LABS: Basophils # (auto) 0.06 K/uL (0-0.2); Basophils % (auto) 0.5 %; Eosinophils # (auto) 0.16 K/uL (0-0.50); Eosinophils % (auto) 1.4 %; Hematocrit (blood only) 41.1 % (40.1-51.0); Hemoglobin 13.2 g/dl (14.0-18.0); Immature Granulocytes # (auto) 0.05 K/uL (0.00-0.02); Immature Granulocytes % (auto) 0.4 %; Lymphocytes # (auto) 3.47 K/uL (1.2-3.4); Lymphocytes % (auto) 29.8 %; Mean Corpuscular Hemoglobin 26.5 pg (25.0-34.0); Mean Corpuscular Hgb Conc 32.1 g/dL (32.0-36.0); Mean Corpuscular Volume 82.5 fL (80.0-100.0); Mean Platelet Volume 10.3 fL (9.4-12.4); Monocytes # (auto) 1.01 K/uL (0.24-0.82); Monocytes % (auto) 8.7 %; Neutrophils # (auto) 6.88 K/uL (1.4-6.5); Neutrophils % (auto) 59.2 %; Platelet Count 303 K/uL (130-400); RDW Coefficient of Variation 13.7 % (11.5-14.5); RDW Standard Deviation 41.2 fL (36.4-46.3); Red Blood Count 4.98 M/uL (4.63-6.08); White Blood Count 11.63 K/ul (4.8-10.8)
[2022-05-20 05:48] LABS: Partial Thromboplastin Ratio 1.1; Partial Thromboplastin Time 30.6 Seconds (21.0-31.0)
[2022-05-20 05:56] LABS: Anion Gap 10 (3-11); BUN Creatinine Ratio 14.6 (10-20); Blood Urea Nitrogen 19 mg/dl (6-23); Calcium 9.2 mg/dl (8.5-10.1); Carbon Dioxide 23 mmol/L (21-32); Chloride 104 mmol/L (98-107); Est GFR (African American) 65.4 ml/min; Est GFR (Non-African American) 56.5 ml/min; Glucose 111 mg/dl (70-99(Fasting)); Magnesium 1.7 mg/dl (1.7-2.4); Potassium 3.9 mmol/L (3.5-5.1); Sodium 137 mmol/L (136-145)
--- NOTE | 2022-05-20 06:45 | XRay Report ---
XR chest 2V PA/lateral HISTORY: 67 years-old Male Chest Pain acute atypical chest pain COMPARISON: CTA chest 05/20/2022 TECHNIQUE: PA and lateral views of the chest FINDINGS: The cardiomediastinal and hilar silhouettes are within normal limits. There is no pneumothorax, pleur al effusion, airspace consolidation or overt pulmonary edema. Bones appear grossly intact. Spondyliti c spurring of the spine. IMPRESSION: No acute process. ACT 112: Negative or not required by law. The above report was generated using voice recognition software. It may contain grammatical, syntax o r spelling errors. Electronically signed by: Kenyon Marvin M.D. 05/20/2022 6:43 AM
[2022-05-20] MEDS ORDERED: GLUCAGON FOR INJ 1 MG VIAL SQ PRN (06:52)
[2022-05-20] MEDS ORDERED: DEXTROSE 50% 50 ML SYRINGE IV PRN (06:52)
[2022-05-20] MEDS ORDERED: GLUCOSE 10 TAB/TUBE PO PRN (06:52)
[2022-05-20] MEDS ORDERED: NITROGLYCERIN SL 0.4 MG/TAB TAB SL PRN (06:52)
[2022-05-20] MEDS ORDERED: GLUCOSE 40% GEL 15 GM TUBE PO PRN (06:52)
[2022-05-20] MEDS ORDERED: CARBOHYDRATES FOR HYPOGLYCEMIA PO PRN (06:52)
[2022-05-20] MEDS ORDERED: busPIRone 5 MG TAB PO PRN (06:52)
[2022-05-20] MEDS ORDERED: ACETAMINOPHEN 325 MG TAB PO PRN (06:52)
--- NOTE | 2022-05-20 08:09 | CT Scan Report ---
CT angio chest PE protocol CT DOSE: 857.88 mGy.cm HISTORY: 67 years-old Male with PE. Acute chest and abdominal pain with shortness of breath TECHNIQUE: Multiple CTA images of the chest were obtained after the intravenous administration of 120 ml Optiray. Coronal and sagittal MIPS were obtained from the axial data set and were submitted for review. All measurements were obtained according to NASCET criteria. A dose lowering technique was u tilized adhering to the principles of ALARA. COMPARISON: CTA chest 05/01/2020 FINDINGS: CTA: The heart is upper limits of normal in size. There is no pericardial effusion. Mitral annular with ad vanced coronary artery calcifications. Atherosclerosis of the thoracic aorta without aneurysm. Unrema rkable pulmonary artery. CT CHEST: No thyroid nodule. Subcarinal lymph nodes measure up to 1.4 x 2.0 cm, unchanged and favored to be lele ign. No pneumothorax, pleural effusion, airspace consolidation or overt pulmonary edema. Scattered bilater al solid pulmonary nodules are redemonstrated, largest of which is a fissural nodule within the left midlung measuring 8 mm on image 166. No new or enlarging pulmonary nodules are identified. Mild trach eobronchial secretions. Bilateral adrenal gland adenomata are redemonstrated measuring up to 2.3 cm on the right and 2.2 cm o n the left. Cholelithiasis. Likely benign 1.2 cm left hepatic lobe hypodense lesion is unchanged. Col onic diverticulosis. No acute process of the imaged upper abdomen. Tiny hiatal hernia. Unremarkable s oft tissues. No acute fracture. IMPRESSION: 1. No pulmonary emboli. 2. Unchanged subcarinal adenopathy, likely benign. 3. Stable scattered bilateral subcentimeter solid pulmonary nodules measuring up to 8 mm are unchange d dating back to the 05/01/2020 study suggestive of benign etiology. 4. Cholelithiasis. Please refer to below summary of Fleischner criteria recommendations for follow-up of incidental CT n odules (Thong Andersen, Guidelines for management of small pulmonary nodules detected on CT scans: A sta tement from the Fleischner Society, Radiology 237: [id number].) SOLID NODULES Multiple nodules size: 6-8 mm * Low risk patients: follow-up at 3-6 months, then consider further follow-up at 18-24 months * high risk patients: follow-up at 3-6 months, then at 18-24 months if no change Multiple nodules size: >8 mm * Low risk patients: follow-up at 3-6 months, then consider further follow-up at 18-24 months * high risk patients: follow-up at 3-6 months, then at 18-24 months if no change Note: newly detected indeterminate nodule in persons 35 years of age or older. * Low risk patients: minimal or absent history of smoking and/or other known risk factors * high risk patients: history of smoking or of other known risk factors (e.g. first degree relative with lung cancer, or exposure to asbestos, radon, uranium) * if a nodule up to 8 mm is partly solid or is ground glass further follow-up is required after 24 m onths to exclude possible slow growing adenocarcinoma (OTONIEL) ACT 112: Negative or not required by law. The above report was generated using voice recognition software. It may contain grammatical, syntax o r spelling errors. Electronically signed by: Kenyon Marvin M.D. 05/20/2022 8:08 AM
[2022-05-20] MEDS: HEPARIN SOD 5,000 UNIT/0.5 ML VIAL SQ SCH ×3 (08:10→20:31)
[2022-05-20] MEDS: RANOLAZINE 500 MG ER TAB PO SCH ×2 (08:11→18:05)
[2022-05-20] MEDS: ASPIRIN 81 MG ECTAB PO SCH (08:12)
[2022-05-20] MEDS: FINASTERIDE 5 MG TAB PO SCH (08:12)
[2022-05-20] MEDS: carvediloL 12.5 MG TAB PO SCH ×2 (08:13→20:30)
[2022-05-20] MEDS: INSULIN ASPART PER UNIT SC SCH ×4 (08:36→20:36)
--- NOTE | 2022-05-20 10:23 | XCELERA ---
[id number] \\[id number]
--- NOTE | 2022-05-20 16:29 | Hospitalist Progress Note ---
Date of Service May 20, 2022 Assessment & Plan (1) Chest pain: Plan: Chest Pain Likely due to Hypertensive Emergency H/O CAD Had Cardiac Cath on 05/16/22 --CTA:No pulmonary emboli.. Unchanged subcarinal adenopathy, likely benign. Stable scattered bilateral subcentimeter solid pulmonary nodules measuring up to 8 mm are unchanged dating back to the 05/01/2020 study suggestive of benign etiology. Troponin elevation likely demand Ischemia due to Hypertension Troponin trended down --ECHO: Normal left ventricle size and systolic function. EF 60 to 65%. No regional wall motion abnormalities. Severe concentric LVH. Moderate mitral annular calcification. No significant change from prior study. Continue aspirin, isosorbide, Ranexa, nitroglycerin as needed Monitor blood pressure Advised to follow-up with his PCP regarding pulmonary nodule as outpatient Cardiology consulted Continue carvedilol, nifedipine Held Lisinopril, Lasix due to JENN Acute Kidney Injury Held Lisinopril, Lasix Cr:1.5>1.3 Monitor renal function Avoid nephrotoxic agents as able H/O TIA Hyperlipidemia Continue aspirin, statin DM II Hold PO meds Continue Insulin per protocol Monitor BGs Mood disorder past tobacco abuse Continue home meds DVT Px: Heparin SQ Code Status Full code Admission and Anticipated Discharge Date Admission Date: May 20, 2022 Subjective Patient is seen and examined at bedside Chest pain, dizziness, nausea resolved States feeling well today No new complaints Echo showed no regional wall motion abnormality Review of Systems Review of Systems: All systems reviewed & are unremarkable except as noted in Subjective Physical Exam Physical Exam: Physical Exam: Vitals signs as noted above General Appearance:Obese, no apparent distress Head: normocephalic, Atraumatic Eyes: normal inspection, EOMI Neck: supple, Trachea midline Respiratory/Chest: Normal breath sounds, CTA, No accessory muscle use Cardiovascular: S1, S2, No murmur Abdomen/GI:Soft, Non tender, Bowel sounds present Extremities/Musculoskeletal:normal inspection, no edema Neurologic/Psych:AAOX3, grossly no focal neurological deficits Skin: normal color, warm Results & Data Results & Data ([facility]) Vital Signs (Past 12 Hours) Vital Signs Temp Pulse Pulse Resp BP BP Pulse Ox 05/20/22 15:51 36.6 C 65 20 157/89 H 98 05/20/22 15:08 64 20 151/92 H 98 05/20/22 07:17 05/20/22 07:15 05/20/22 07:15 68 16 132/91 98 05/20/22 06:02 05/20/22 05:50 95 05/20/22 05:30 71 17 130/97 94 05/20/22 05:00 73 16 123/84 86 L 05/20/22 04:30 63 13 186/106 H 95 Pulse Ox O2 Del Method O2 Del Method O2 Flow Rate 05/20/22 15:51 Nasal Cannula 2 05/20/22 15:08 Room Air 05/20/22 07:17 Room Air 05/20/22 07:15 98 Room Air 05/20/22 07:15 Room Air 05/20/22 06:02 Nasal Cannula 2 05/20/22 05:50 Nasal Cannula 2 05/20/22 05:30 05/20/22 05:00 05/20/22 04:30 Laboratory Results Short CBC 05/19/22 05/20/22 Range/Units 22:50 05:10 WBC 13.01 H 11.63 H (4.8-10.8) K/ul Hgb 14.1 13.2 L (14.0-18.0) g/dl Hct 43.9 41.1 (40.1-51.0) % Plt Count 252 303 (130-400) K/uL BMP 05/19/22 05/20/22 22:50 05:10 Sodium 139 137 Potassium 4.4 3.9 Chloride 103 104 Carbon Dioxide 26 23 BUN 21 19 Creatinine 1.53 H 1.30 Glucose 101 H 111 H Calcium 9.9 9.2 Liver Function 05/19/22 Range/Units 22:50 Total Bilirubin 0.4 (0.2-1.0) mg/dl AST 16 (13-39) U/L ALT 13 (7-52) U/L Alkaline Phosphatase 62 (34-104) U/L Albumin 4.2 (3.4-5.0) gm/dl (1) Chest pain Chest pain type: unspecified Qualified Code(s): R07.9 - Chest pain, unspec ified
--- NOTE | 2022-05-20 18:12 | Cardiology Consultation ---
Date of Consultation May 20, 2022 Assessment & Plan (1) Chest pain: (2) CAD (coronary artery disease): (3) Elevated troponin: (4) Hypertensive urgency: (5) Hyperlipidemia: Plan ASSESSMENT/PLAN: 1. Chest pain: Has had chronic issues with chest discomfort. Had cardiac catheterization done earlier this week with nonobstructive CAD. Chest pain may be noncardiac in nature or this presentation perhaps due to severe hypertension. Recommend investigating noncardiac sources for chest discomfort. No further ischemic evaluation necessary. 2. Elevated troponin: Troponin trended downward from presentation. Nonobstructive CAD on cardiac catheterization. Troponin elevation may be due to severe hypertension which was noted on presentation. 3. CAD: Risk factor modification for nonobstructive CAD. Continue anti- platelet therapy, beta-justin, calcium channel justin, and high-intensity statin therapy. He has been on antianginal therapies as well. 4. Hypertensive urgency: Blood pressure has improved. Plan as above. 5. Dyslipidemia: Continue high-intensity statin therapy. 6. Acute renal insufficiency: Renal functions slightly worse on presentation compared to baseline. This was in the setting of reduced oral intake and nausea/vomiting and he was likely hypovolemic. He was started on Lasix recently due to elevated LVEDP during catheterization. On discharge, would recommend changing daily Lasix to 20 mg p.o. daily p.r.n. shortness of breath/weight ga in/edema. 7. Disposition: No further inpatient cardiology evaluation necessary. Can be discharged home when okay with hospitalist service for his other presenting symptoms, now that his blood pressure has significantly improved. If he remains hospitalized, Dr. Douglas will be covering this weekend. Please call with questions or concerns. Plan of care communicated with Dr. Edwards of the [facility] hospitalist service. Today's visit was 43 minutes in duration which includes [id number] time with the patient, reviewing of records, coordinating care, and documentation. Thank you for allowing me to participate in the care of your patient. Please call for any other questions or concerns. Sincerely, Renzo Chavira M.D. History of Present Illness Reason for Consultation: Chest Pain Requesting Physician: Dr. Quinn Attending Physician: Lit Edwards MD History of Present Illness Mr. 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 He is followed by Nephrology, Dr. Rahman, with [facility]. Angina has been described as a substernal chest discomfort as though something is sitting on his chest (pressure-like pain). It was exertional only and also was accompanied by dyspnea and diaphoresis. He has had the following studies/procedures: 1. Echo 04/05/2018: Normal left ventricular systolic function. EF 60-64%. Moderate LVH. Type 1 diastolic dysfunction. Sclerotic aortic valve. Normal RVSP. 2. Lexiscan myocardial perfusion 04/09/2018 ([employer]) normal perfusion. Normal LV systolic function and wall motion. EF greater than 70%. 3. Cardiac catheterization 06/15/2018: Mid LAD 40%. Distal LAD 20%. Large D1 mid 30%. Small caliber proximal D2 90%. Proximal and mid luminal irregularities within the circumflex. Dominant RCA. Proximal RCA 20%. Mid RCA 30. 4. Cardiac catheterization 05/02/[address] [facility] [address]. Arias: Small ostial OM1 100%. Otherwise nonobstructive CAD. 5. Echo 05/02/2020: Normal LV size, wall motion, systolic function. EF 65- 70%. Mild LVH. Sclerotic aortic valve without stenosis. Normal RVSP. 6. Stress Echo 03/04/22: Nondiagnostic. Stress images poorly visualized. 62% MPHR. 3 min 54 sec. Knee pain limited exercise. EF 65-70%. Normal wall motion at rest. No sig valvular abnormalities. 7. Cardiac catheterization 05/16/2022: Prox LAD 10-20%. Mid LAD 20-30% in late mid 30-40%. Very small caliber D2 possible 50% proximal stenosis. Proximal circumflex 30-40%. Large OM2 diffuse prox 30%. Small caliber distal circumflex 40%. Dominant RCA. Prox RCA 10%. Early mid RCA 30-40%. LVEDP 23. Performed via left radial artery. 8. Echo (limited) 05/20/2022: Normal LV size, wall motion, systolic function. EF 60-65%. Severe concentric LVH. Moderate MAC. He was admitted on 05/20/2022 after presenting with nausea and vomiting. He has a history of chronic chest pain and underwent cardiac catheterization earlier this week for this same complaint after having an nondiagnostic stress echo due to poorly visualized images. Cardiac catheterization demonstrated nonobstructive CAD. He developed nausea and vomiting on 05/19/2022 and had more than 5 or 6 episodes of vomiting. He had 3 episodes of chest pain yesterday for which he took nitroglycerin. The nitroglycerin resolved his chest pain. He continued to have vomiting episodes however which prompted him to come to the emergency department. He has not been tolerating oral intake. He did not take his afternoon meds yesterday although he took them in the morning. When he presented to the hospital he was noted to be severely hypertensive in the ER with initial blood pressure 198/107 and a peak blood pressure of 222/[address] angiogram of the chest without obvious cause of his chest discomfort. Labs were notable for increased creatinine level compared to baseline, but only mildly. His troponin level was 64 on presentation and has since trended downward. When he was seen in the emergency department this afternoon, he stated that he had not vomited since 3:00 a.m.. His appetite has improved but he had not yet eaten. He has chronic positional lightheadedness when he first gets up in the morning over the past few months. He denies orthopnea, shortness of breath at rest, syncope, edema, palpitations, or bleeding. He does have dyspnea with exertion. Review of systems:As above. Family history:Father had CABG in his mid 60s. Social history:Smoked 25 pack years but quit at the age of 39. Occasional alcohol. No drugs. Lives at home with his . They have a son and a daughter. Daughter works in the [employer] in the [employer] department. He is a self-employed [employer]. He was alone in his hospital/ER room. Allergies Allergy/AdvReac Type Severity Reaction Status Date / Time No Known Allergies Allergy Verified 05/20/22 00:22 Home Medications Medication Instructions Recorded Confirmed Type buspirone 5 mg tablet 5 mg PO TID PRN Anxiety 06/15/18 05/20/22 History lisinopril 40 mg tablet 40 mg PO DAILY 06/15/18 05/20/22 History aspirin 81 mg tablet,delayed 81 mg PO QAM 04/26/19 05/20/22 History release carvedilol 25 mg tablet 37.5 mg PO BID 04/26/19 05/20/22 History finasteride 5 mg tablet 5 mg PO QAM 04/26/19 05/20/22 History metformin 500 mg tablet 500 mg PO BID 04/26/19 05/20/22 History tramadol 50 mg tablet 25 - 50 mg PO TID PRN Pain #10 tabs 04/28/19 05/20/22 Rx nitroglycerin 0.4 mg sublingual 0.4 mg sublingual DIRECTED PRN 05/27/19 05/20/22 History tablet Chest Pain #25 tabs terazosin 5 mg capsule 5 mg PO HS 12/12/19 05/20/22 History atorvastatin 40 mg tablet 40 mg PO DAILY #30 tabs 05/19/20 05/20/22 Rx nifedipine 60 mg tablet,extended 60 mg PO QPM #90 tabs 07/02/21 05/20/22 Rx release ranolazine 1,000 mg 1,000 mg PO Q12H #180 tabs 09/14/21 05/20/22 Rx tablet,extended release,12 hr isosorbide mononitrate 120 mg 240 mg PO QAM #180 tabs 03/20/22 05/20/22 Rx tablet,extended release 24 hr furosemide 20 mg tablet (Lasix) 20 mg PO DAILY #30 tabs 05/16/22 05/20/22 Rx Patient History Medical History CAD (coronary artery disease) Diabetes mellitus, type 2 Diverticular disease History of hypotension Hyperlipidemia Hypertension Non-ST elevation (NSTEMI) myocardial infarction PVCs (premature ventricular contractions) Solitary kidney Surgical History History of nephrectomy left History of tonsillectomy and adenoidectomy Family History Father Coronary heart disease Social History Smoking Status: Never smoker Tobacco Type: Smokeless Tobacco (Dip or Chew) Cigarettes Per Day: 40; Second Hand Exposure: No; Do You Dip or Chew Tobacco: No; Hx Alcohol Use: Yes Alcohol type: beer Hx Substance Use: No Preferred Language: [place] Communication Ability: Effective Drug And Alcohol Counsellor Required: No Beliefs That Will Affect Care: None Current Living Situation: Spouse Current Living Situation Comment: House Other Information That Helps Us Care for You: No Feels Safe at Home: Yes Safety Concerns: Feels Safe At This Time Assistive Devices: None Physical Exam Physical Exam: Gen.: No acute distress. Alert and oriented. HEENT: Anicteric sclera. Neck: No JVD. Normal carotid upstrokes bilaterally. Cardiac: PMI was nonpalpable. No ventricular heave. Regular. No ectopy. Normal S1-S2. No murmurs, rubs, or gallops. Pulmonary: Clear to auscultation bilaterally without wheezes, rales, or rhonchi. Abdomen: Soft, nontender, nondistended, with normoactive bowel sounds. No bruits noted. Extremities: Right radial pulse was not palpable. 2+ left radial pulse. Left radial cath site was clean, dry, and intact without erythema or discharge. 2+ posterior tibialis pulses bilaterally. No pitting edema. No cyanosis. Psychiatric: Affect appears appropriate. Results & Data ([facility]) Vital Signs (Past 12 Hours) Vital Signs Temp Pulse Pulse Resp BP Pulse Ox Pulse Ox 05/20/22 16:29 69 05/20/22 15:51 36.6 C 65 20 157/89 H 98 05/20/22 15:08 64 20 151/92 H 98 05/20/22 07:17 05/20/22 07:15 98 05/20/22 07:15 68 16 132/91 98 05/20/22 06:02 O2 Del Method O2 Del Method O2 Flow Rate 05/20/22 16:29 05/20/22 15:51 Nasal Cannula 2 05/20/22 15:08 Room Air 05/20/22 07:17 Room Air 05/20/22 07:15 Room Air 05/20/22 07:15 Room Air 05/20/22 06:02 Nasal Cannula 2 Laboratory Results Laboratory Results - last 24 hr 05/19/22 05/19/22 05/19/22 22:50 22:50 22:50 WBC 13.01 H RBC 5.32 Hgb 14.1 Hct 43.9 MCV 82.5 MCH 26.5 MCHC 32.1 RDW Std Deviation 41.5 RDW Coeff of Gage 13.8 Plt Count 252 MPV 11.0 Immature Gran % (Auto) 0.5 Neut % (Auto) 62.0 Lymph % (Auto) 26.5 Garza % (Auto) 9.5 Eos % (Auto) 1.1 Baso % (Auto) 0.4 Neut # (Auto) 8.07 H Lymph # (Auto) 3.45 H Garza # (Auto) 1.23 H Eos # (Auto) 0.14 Baso # (Auto) 0.05 Immature Gran # (Auto) 0.07 H RBC Morphology Unremarkable PT Cancelled INR Cancelled APTT Cancelled PTT Ratio Cancelled Sodium 139 Potassium 4.4 Chloride 103 Carbon Dioxide 26 Anion Gap 10 BUN 21 Creatinine 1.53 H Est Cr Clr Drug Dosing Not Reportable Est GFR ( Amer) 53.7 Est GFR (Non-Af Amer) 46.4 BUN/Creatinine Ratio 13.7 Glucose 101 H POC Glucose Calcium 9.9 Magnesium Total Bilirubin 0.4 AST 16 ALT 13 Alkaline Phosphatase 62 Troponin I High Sens 64.0 H* Total Protein 7.5 Albumin 4.2 Globulin 3.3 Albumin/Globulin Ratio 1.3 Lipase SARS-CoV-2, RNA, NAAT 05/20/22 05/20/22 05/20/22 00:09 00:09 00:09 WBC RBC Hgb Hct MCV MCH MCHC RDW Std Deviation RDW Coeff of Gage Plt Count MPV Immature Gran % (Auto) Neut % (Auto) Lymph % (Auto) Garza % (Auto) Eos % (Auto) Baso % (Auto) Neut # (Auto) Lymph # (Auto) Garza # (Auto) Eos # (Auto) Baso # (Auto) Immature Gran # (Auto) RBC Morphology PT 11.3 INR 1.1 APTT 30.2 PTT Ratio 1.1 Sodium Potassium Chloride Carbon Dioxide Anion Gap BUN Creatinine Est Cr Clr Drug Dosing Est GFR ( Amer) Est GFR (Non-Af Amer) BUN/Creatinine Ratio Glucose POC Glucose Calcium Magnesium Total Bilirubin AST ALT Alkaline Phosphatase Troponin I High Sens 59.5 H* Total Protein Albumin Globulin Albumin/Globulin Ratio Lipase 41 SARS-CoV-2, RNA, NAAT 05/20/22 05/20/22 05/20/22 05:10 05:10 05:10 WBC 11.63 H RBC 4.98 Hgb 13.2 L Hct 41.1 MCV 82.5 MCH 26.5 MCHC 32.1 RDW Std Deviation 41.2 RDW Coeff of Gage 13.7 Plt Count 303 MPV 10.3 Immature Gran % (Auto) 0.4 Neut % (Auto) 59.2 Lymph % (Auto) 29.8 Garza % (Auto) 8.7 Eos % (Auto) 1.4 Baso % (Auto) 0.5 Neut # (Auto) 6.88 H Lymph # (Auto) 3.47 H Garza # (Auto) 1.01 H Eos # (Auto) 0.16 Baso # (Auto) 0.06 Immature Gran # (Auto) 0.05 H RBC Morphology PT INR APTT 30.6 PTT Ratio 1.1 Sodium 137 Potassium 3.9 Chloride 104 Carbon Dioxide 23 Anion Gap 10 BUN 19 Creatinine 1.30 Est Cr Clr Drug Dosing Not Reportable Est GFR ( Amer) 65.4 Est GFR (Non-Af Amer) 56.5 BUN/Creatinine Ratio 14.6 Glucose 111 H POC Glucose Calcium 9.2 Magnesium 1.7 Total Bilirubin AST ALT Alkaline Phosphatase Troponin I High Sens 57.0 H* Total Protein Albumin Globulin Albumin/Globulin Ratio Lipase SARS-CoV-2, RNA, NAAT 05/20/22 05/20/22 05/20/22 08:07 12:33 16:20 WBC RBC Hgb Hct MCV MCH MCHC RDW Std Deviation RDW Coeff of Gage Plt Count MPV Immature Gran % (Auto) Neut % (Auto) Lymph % (Auto) Garza % (Auto) Eos % (Auto) Baso % (Auto) Neut # (Auto) Lymph # (Auto) Garza # (Auto) Eos # (Auto) Baso # (Auto) Immature Gran # (Auto) RBC Morphology PT INR APTT PTT Ratio Sodium Potassium Chloride Carbon Dioxide Anion Gap BUN Creatinine Est Cr Clr Drug Dosing Est GFR ( Amer) Est GFR (Non-Af Amer) BUN/Creatinine Ratio Glucose POC Glucose 106 H 92 91 Calcium Magnesium Total Bilirubin AST ALT Alkaline Phosphatase Troponin I High Sens Total Protein Albumin Globulin Albumin/Globulin Ratio Lipase SARS-CoV-2, RNA, NAAT 05/20/22 Unknown WBC RBC Hgb Hct MCV MCH MCHC RDW Std Deviation RDW Coeff of Gage Plt Count MPV Immature Gran % (Auto) Neut % (Auto) Lymph % (Auto) Garza % (Auto) Eos % (Auto) Baso % (Auto) Neut # (Auto) Lymph # (Auto) Garza # (Auto) Eos # (Auto) Baso # (Auto) Immature Gran # (Auto) RBC Morphology PT INR APTT PTT Ratio Sodium Potassium Chloride Carbon Dioxide Anion Gap BUN Creatinine Est Cr Clr Drug Dosing Est GFR ( Amer) Est GFR (Non-Af Amer) BUN/Creatinine Ratio Glucose POC Glucose Calcium Magnesium Total Bilirubin AST ALT Alkaline Phosphatase Troponin I High Sens Total Protein Albumin Globulin Albumin/Globulin Ratio Lipase SARS-CoV-2, RNA, NAAT NEGATIVE Diagnostic Findings Cardiac catheterization report reviewed as noted above in HPI. CTA chest report 05/20/2022: No PE. ECG personally reviewed: ECG 05/19/2022 at 10:40 p.m.: Sinus rhythm with PACs. 69 beats per minute. ECG 05/20/2022 at 12:36 a.m.: Sinus rhythm 62 beats per minute. Cannot rule out inferior infarct. Nonspecific T-wave abnormality. Echo report reviewed as noted above in HPI. Medications Administered Current Inpatient Medications Acetaminophen (Acetaminophen 325 Mg Tab) 650 mg PO Q4H PRN PRN Reason: Pain or Fever Stop: 06/19/22 06:51 Aspirin (Aspirin 81 Mg Ectab) 81 mg PO QAM [facility] Stop: 06/19/22 08:59 Last Admin: 05/20/22 08:12 Dose: 81 mg Atorvastatin Calcium (Atorvastatin 40 Mg Tab) 40 mg PO DAILY [facility] Stop: 06/20/22 08:59 Buspirone HCl (Buspirone 5 Mg Tab) 5 mg PO TID PRN PRN Reason: Anxiety Stop: 06/19/22 06:51 Carvedilol (Carvedilol 12.5 Mg Tab) 37.5 mg PO BID [facility] Stop: 06/19/22 08:59 Last Admin: 05/20/22 08:13 Dose: 37.5 mg Dextrose (Dextrose 50% 50 Ml Syringe) 25 - 50 ml IV UD PRN; Protocol PRN Reason: Hypoglycemia Protocol Stop: 06/19/22 06:51 Finasteride (Finasteride 5 Mg Tab) 5 mg PO QAM [facility] Stop: 06/19/22 08:59 Last Admin: 05/20/22 08:12 Dose: 5 mg Glucagon (Glucagon For Inj 1 Mg Vial) 1 mg SQ UD PRN; Protocol PRN Reason: Hypoglycemia Protocol Stop: 06/19/22 06:51 Glucose (Glucose 40% Gel 15 Gm Tube) 15 - 30 gm PO UD PRN; Protocol PRN Reason: Hypoglycemia Protocol Stop: 06/19/22 06:51 Glucose (Glucose 10 Tab/Tube) 4 - 8 tab PO UD PRN; Protocol PRN Reason: Hypoglycemia Treatment Stop: 06/19/22 06:51 Heparin Sodium (Porcine) (Heparin Sod 5,000 Unit/0.5 Ml Vial) 5,000 units SQ Q8 [facility] Stop: 06/19/22 06:51 Last Admin: 05/20/22 15:06 Dose: 5,000 units Hydromorphone HCl (Hydromorphone Inj 0.5 Mg/0.5 Ml Syr) 0.5 mg IV Q3H PRN PRN Reason: Pain Stop: 06/03/22 04:36 Sodium Chloride (Nss 1000ml) 1,000 mls @ 50 mls/hr IV .Q20H ONE Stop: 05/20/22 23:11 Last Admin: 05/20/22 04:10 Dose: 50 mls/hr Promethazine HCl 12.5 mg/ (Sodium Chloride) 50.5 mls @ 202 mls/hr IV Q6H PRN PRN Reason: Nausea And Vomiting Stop: 06/19/22 04:36 Insulin Aspart (Insulin Aspart Per Unit) 0 units SC ACHS [facility] Stop: 06/19/22 07:29 Last Admin: 05/20/22 17:17 Dose: 2 units Isosorbide Mononitrate (Isosorbide Garza Extended Rel 60 Mg Tabcr) 240 mg PO QAM [facility] Stop: 06/20/22 08:59 Miscellaneous (Carbohydrates For Hypoglycemia ) 15 - 30 gm PO UD PRN PRN Reason: Hypoglycemia Protocol Stop: 06/19/22 06:51 Nifedipine (Nifedipine Extended Rel 30 Mg Tabcr) 60 mg PO QPM [facility] Stop: 06/19/22 20:59 Nitroglycerin (Nitroglycerin Sl 0.4 Mg/Tab Tab) 0.4 mg SL Q5M PRN PRN Reason: Chest Pain Stop: 06/19/22 06:51 Ranolazine (Ranolazine 500 Mg Er Tab) 1,000 mg PO Q12H [facility] Stop: 06/19/22 06:59 Last Admin: 05/20/22 18:05 Dose: 1,000 mg Terazosin HCl (Terazosin Hcl 5 Mg Cap) 5 mg PO HS [facility] Stop: 06/19/22 20:59 Tramadol HCl (Tramadol Hcl 50 Mg Tablet) 25 - 50 mg PO Q4H PRN PRN Reason: Pain Stop: 06/19/22 04:36 PG Care Time/CCT Total # of Minutes Spent Total Time Spent with Patient: Total time spent is greater than 50% in coordination of care (as documented) at patient's floor/unit and/or counseling patient: Coding Level of Care Code 70719 Office/Outpt Visit, Est Diagnoses Chest pain R07.9 Chest pain type: unspecified CAD (coronary artery disease) I25.10 Elevated troponin R77.8 Hypertensive urgency I16.0 Hyperlipidemia E78.5 (1) Chest pain Chest pain type: unspecified Qualified Code(s): R07.9 - Chest pain, unspecified
[2022-05-20] MEDS ORDERED: NIFEdipine EXTENDED REL 30 MG TABCR PO SCH (21:00)
[2022-05-20] MEDS ORDERED: TERAZOSIN HCL 5 MG CAP PO SCH (21:00)
[2022-05-20 23:27] LABS: Appearance Urine Clear (Clear); Bacteria Urine Automated Negative (Negative); Bilirubin Urine Negative (Negative); Blood Urine Negative (Negative); Color Urine Dark Yellow; Glucose Urine UA Negative (Negative); Ketones Urine Trace (Negative); Leukocyte Esterase Urine Negative (Negative); Nitrite Urine Negative (Negative); Protein Urine Trace (Negative); RBC Urine Automated 0-4 /hpf (0-4); Specific Gravity Urine 1.039 (1.000-1.030); Urobilinogen Urine Negative (Negative); WBC Urine Automated 0 /hpf (0-5); pH Urine 5.5 (4.5-7.5)
[2022-05-21] MEDS: HEPARIN SOD 5,000 UNIT/0.5 ML VIAL SQ SCH (05:34)
[2022-05-21] MEDS: RANOLAZINE 500 MG ER TAB PO SCH (05:34)
--- NOTE | 2022-05-21 06:07 | Electrocardiogram Report ---
Test Reason : Blood Pressure : / mmHG Vent. Rate : 069 BPM Atrial Rate : 069 BPM P-R Int : 178 ms QRS Dur : 098 ms QT Int : 410 ms P-R-T Axes : 051 030 027 degrees QTc Int : 439 ms Sinus rhythm with Premature atrial complexes Otherwise normal ECG When compared with ECG of 02-MAY-2020 07:14, Premature atrial complexes are now Present Confirmed by Matt Chavira ([id number]) on 05/21/2022 6:07:05 AM Referred By: REFERRED SELF Confirmed By:Matt Chavira
--- NOTE | 2022-05-21 06:10 | Electrocardiogram Report ---
Test Reason : Blood Pressure : / mmHG Vent. Rate : 062 BPM Atrial Rate : 062 BPM P-R Int : 176 ms QRS Dur : 102 ms QT Int : 444 ms P-R-T Axes : 000 -19 125 degrees QTc Int : 450 ms Normal sinus rhythm Nonspecific T wave abnormality Cannot rule out Inferior infarct Abnormal ECG When compared with ECG of 19-MAY-2022 22:40, Premature atrial complexes are no longer Present Nonspecific T wave abnormality, worse in Inferior leads Nonspecific T wave abnormality now evident in Lateral leads Confirmed by Matt Chavira ([id number]) on 05/21/2022 6:10:33 AM Referred By: REFERRED SELF Confirmed By:Matt Chavira
[2022-05-21 07:56] LABS: Hematocrit (blood only) 43.8 % (40.1-51.0); Hemoglobin 13.9 g/dl (14.0-18.0); Mean Corpuscular Hemoglobin 26.6 pg (25.0-34.0); Mean Corpuscular Hgb Conc 31.7 g/dL (32.0-36.0); Mean Corpuscular Volume 83.9 fL (80.0-100.0); Mean Platelet Volume 10.5 fL (9.4-12.4); Platelet Count 310 K/uL (130-400); RDW Coefficient of Variation 13.8 % (11.5-14.5); RDW Standard Deviation 42.4 fL (36.4-46.3); Red Blood Count 5.22 M/uL (4.63-6.08); White Blood Count 9.42 K/ul (4.8-10.8)
[2022-05-21] MEDS: INSULIN ASPART PER UNIT SC SCH (08:01)
[2022-05-21] MEDS: FINASTERIDE 5 MG TAB PO SCH (08:08)
[2022-05-21] MEDS: ASPIRIN 81 MG ECTAB PO SCH (08:09)
[2022-05-21] MEDS: carvediloL 12.5 MG TAB PO SCH (08:09)
[2022-05-21 08:24] LABS: BUN Creatinine Ratio 16.3 (10-20); Calcium 9.3 mg/dl (8.5-10.1); Creatinine Clr Calc Pharmacy 68.1 ml/min; Est GFR (Non-African American) 60.4 ml/min; Potassium 4.1 mmol/L (3.5-5.1)
[2022-05-21] MEDS ORDERED: ISOSORBIDE MONO EXTENDED REL 60 MG TABCR PO SCH (09:00)
[2022-05-21] MEDS ORDERED: ATORVASTATIN 40 MG TAB PO SCH (09:00)
--- NOTE | 2022-05-21 11:23 | Hospitalist Progress Note ---
Date of Service May 21, 2022 Assessment & Plan (1) Chest pain: Plan: Chest Pain Likely due to Hypertensive Emergency H/O CAD Had Cardiac Cath on 05/16/22 --CTA:No pulmonary emboli.. Unchanged subcarinal adenopathy, likely benign. Stable scattered bilateral subcentimeter solid pulmonary nodules measuring up to 8 mm are unchanged dating back to the 05/01/2020 study suggestive of benign etiology. Troponin elevation likely demand Ischemia due to Hypertension Troponin trended down --ECHO: Normal left ventricle size and systolic function. EF 60 to 65%. No regional wall motion abnormalities. Severe concentric LVH. Moderate mitral annular calcification. No significant change from prior study. Continue aspirin, isosorbide, Ranexa, nitroglycerin as needed Monitor blood pressure Advised to follow-up with his PCP regarding pulmonary nodule as outpatient Appreciate Cardiology Input Continue carvedilol, nifedipine Resume Lisinopril Lasix was recently started for elevated LVEDP during catheterization Plan to change Lasix to 20mg daily PRN for dyspnea, weight gain or edema as recommended by Cardiology Advised to follow up with Cardiology upon discharge Acute Kidney Injury Recently started on lasix for elevated LVEDP during catheterization Held Lisinopril, Lasix Cr:1.5>1.3>1.2 Monitor renal function Avoid nephrotoxic agents as able H/O TIA Hyperlipidemia Continue aspirin, statin DM II Hold PO meds Continue Insulin per protocol Monitor BGs Mood disorder past tobacco abuse Continue home meds DVT Px: Heparin SQ Code Status Full code Disposition Home Admission and Anticipated Discharge Date Admission Date: May 20, 2022 Subjective Patient is seen and examined at bedside Doing well today Ambulating in hallways with no issues Denies chest pain, dyspnea, dizziness, nausea, abd pain No other complaints Review of Systems Review of Systems: All systems reviewed & are unremarkable except as noted in Subjective Physical Exam Physical Exam: Physical Exam: Vitals signs as noted above General Appearance:Obese, no apparent distress Head: normocephalic, Atraumatic Eyes: normal inspection, EOMI Neck: supple, Trachea midline Respiratory/Chest: Normal breath sounds, CTA, No accessory muscle use Cardiovascular: S1, S2, No murmur Abdomen/GI:Soft, Non tender, Bowel sounds present Extremities/Musculoskeletal:normal inspection, no edema Neurologic/Psych:AAOX3, grossly no focal neurological deficits Skin: normal color, warm Results & Data Results & Data ([place]) Vital Signs (Past 12 Hours) Vital Signs Temp Pulse Pulse Resp BP Pulse Ox O2 Del Method 05/21/22 11:08 36.5 C 68 19 103/67 95 Room Air 05/21/22 07:16 36.6 C 70 19 128/82 97 Room Air 05/21/22 02:43 36.5 C 68 18 137/78 94 Room Air 05/21/22 00:03 75 Laboratory Results Short CBC 05/21/22 Range/Units 07:11 WBC 9.42 (4.8-10.8) K/ul Hgb 13.9 L (14.0-18.0) g/dl Hct 43.8 (40.1-51.0) % Plt Count 310 (130-400) K/uL BMP 05/21/22 07:11 Sodium 135 L Potassium 4.1 Chloride 101 Carbon Dioxide 27 BUN 20 Creatinine 1.23 Glucose 113 H Calcium 9.3 Urine 05/20/22 Range/Units Unknown Urine Color Dark Yellow Urine Appearance Clear (Clear) Urine pH 5.5 (4.5-7.5) Ur Specific [place] 1.039 H (1.000-1.030) Urine Protein Trace H (Negative) Urine Glucose (UA) Negative (Negative) (1) Chest pain Chest pain type: unspecified Qualified Code(s): R07.9 - Chest pain, unspecified
--- NOTE | 2022-05-21 11:36 | Discharge Summary ---
Date of Service May 21, 2022 Admission HPI Per Admitting Provider History obtained from patient, family, and records. Medical history significant for CAD, hypertension, hyperlipidemia, TIA, BPH, DM2 on oral medications, mood disorder, history UPJ obstruction status post left nephrectomy, past tobacco abuse. Last confinement April 2020 for NSTEMI. Small first obtuse marginal artery occlusion not amenable to cardiac stent placement. Patient underwent diagnostic cardiac catheterization for stable angina by [place] certified medication aide 4 days ago. Nonobstructive CAD findings. Medical management recommended with consideration of adjustment of diuretic Rx. 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 No cough, no SOB, no diaphoresis. No headache symptoms. SBP 150s at home as per patient. Discomfort relieved by nitroglycerin as per patient. Patient compliant with home medications. Denies dietary indiscretion. No unusual stress at home. Highest SBP of 220s at the ER. Medical History as above Surgical History : Cataract surgeries, tonsillectomy/adenoidectomy, left shoulder surgery, laparoscopic hernia repair Family History : DM, heart disease, cerebral aneurysm Personal/Social history : Past tobacco abuse, occasional EtOH intake, [employer] work Admission Exam Per Admitting Provider Physical Exam Physical Exam: GENERAL: Slightly uncomfortable, pleasant, obese, slightly hard of hearing, no respiratory distress SKIN: Normal color, warm HEENT: Crest palpebral conjunctivae, no ptosis, dry buccal mucosa NECK : Supple, short neck, no tenderness CHEST : CTA, no tenderness HEART : RRR, no obvious murmurs ABDOMEN: Some distention, nontender EXTREMITIES : No LE swelling/tenderness, no other conspicuous deformities noted NEUROLOGIC : Coherent, no facial asymmetry, slightly hard of hearing, no other gross focality Principal Diagnosis Chest Pain Acute Kidney Injury Discharge Data Allergies Allergy/AdvReac Type Severity Reaction Status Date / Time No Known Allergies Allergy Verified 05/20/22 00:22 Consultations 05/20/22 02:55 ED Decision to Admit Stat 05/20/22 06:52 Consult Cardiology Routine Procedures Performed CTA: 1. No pulmonary emboli. 2. Unchanged subcarinal adenopathy, likely benign. 3. Stable scattered bilateral subcentimeter solid pulmonary nodules measuring up to 8 mm are unchanged dating back to the 05/01/2020 study suggestive of benign etiology. 4. Cholelithiasis. Ordered Studies 05/20/22 00:29 CT angio chest PE protocol Urgent Hospital Course (1) Chest pain: Chest Pain Likely due to Hypertensive Emergency H/O CAD Had Cardiac Cath on 05/16/22 --CTA:No pulmonary emboli.. Unchanged subcarinal adenopathy, likely benign. Stable scattered bilateral subcentimeter solid pulmonary nodules measuring up to 8 mm are unchanged dating back to the 05/01/2020 study suggestive of benign etiology. Troponin elevation likely demand Ischemia due to Hypertension Troponin trended down --ECHO: Normal left ventricle size and systolic function. EF 60 to 65%. No regional wall motion abnormalities. Severe concentric LVH. Moderate mitral annular calcification. No significant change from prior study. Continue aspirin, isosorbide, Ranexa, nitroglycerin as needed Monitor blood pressure Advised to follow-up with his PCP regarding pulmonary nodule as outpatient Appreciate Cardiology Input Continue carvedilol, nifedipine Resume Lisinopril Lasix was recently started for elevated LVEDP during catheterization Plan to change Lasix to 20mg daily PRN for dyspnea, weight gain or edema as recommended by Cardiology Advised to follow up with Cardiology upon discharge Acute Kidney Injury Recently started on lasix for elevated LVEDP during catheterization Held Lisinopril, Lasix Cr:1.5>1.3>1.2 Monitor renal function Avoid nephrotoxic agents as able H/O TIA Hyperlipidemia Continue aspirin, statin DM II Hold PO meds Continue Insulin per protocol Monitor BGs Mood disorder past tobacco abuse Continue home meds DVT Px: Heparin SQ Code Status Full code Disposition Home Total Time Total Time Spent Total Time Spent (In Minutes): 45 minutes Discharge Plan Discharge Items Patient Disposition: Home - Self-Care Reason For Visit: CHEST PAIN, HTN CRISIS Discharge Diagnosis: Chest Pain Acute Kidney Injury Condition on Discharge: Good Activity: Per Instructions section Exercise/Sports: Gradually increase as tolerated Non-emergency contact: Primary Care Provider and Head Cd Reactor Operator Call non-emergency contact if: you have any medication questions, your symptoms worsen, your pain is concerning for you and you have a fever Follow-up/Referrals: Jeet Carter MD [Primary Care Provider] - Diet: Carb Consistent or DM2 and Heart Healthy Addtl Attending Provider Instructions: Follow up with your primary care physician in 1 week Follow up with your Head Cd Reactor Operator as advised --Monitor your blood pressure at home as advised and follow up with your physician for further recommendations. --Your lasix is changed to 20mg daily as needed only for dyspnea, weight gain or edema as recommended by your Head Cd Reactor Operator. Seek immediate medical attention if your symptoms reoccur or worsen Please take all medications as instructed on discharge list below. Please call if you have any questions or problems. You can reach a [facility] hospitalist on duty at [facility] 24 hours a day by calling [phone] Pending Studies at Discharge: No Stand-Alone Forms: My [facility], Smoking Cessation Medications and DC Order Prescriptions: Continued ranolazine 1,000 mg tablet extended release 12 hr 1,000 mg PO Q12H Qty: 180 3RF isosorbide mononitrate 120 mg tablet extended release 24 hr 240 mg PO QAM Qty: 180 3RF atorvastatin 40 mg tablet 40 mg PO DAILY Qty: 30 11RF nifedipine 60 mg tablet extended release 60 mg PO QPM Qty: 90 3RF nitroglycerin 0.4 mg tablet, sublingual 0.4 mg SL DIRECTED PRN (Reason: Chest Pain) Qty: 25 Rx Instructions: PLACE ONE TABLET UNDER THE TONGUE EVERY 5 MINUTES FOR UP TO 3 DOSES OVER 15 MINUTES IF NEEDED FOR CHEST PAIN buspirone 5 mg Tablet 5 mg PO TID PRN (Reason: Anxiety) lisinopril 40 mg Tablet 40 mg PO DAILY metformin 500 mg tablet 500 mg PO BID carvedilol 25 mg tablet 37.5 mg PO BID aspirin 81 mg Tablet,Delayed Release (Dr/Ec) 81 mg PO QAM finasteride 5 mg tablet 5 mg PO QAM tramadol 50 mg tablet 25 - 50 mg PO TID PRN (Reason: Pain) Qty: 10 0RF terazosin 5 mg capsule 5 mg PO HS Changed furosemide [Lasix] 20 mg tablet 20 mg PO DAILY PRN (Reason: Edema, Weight gain, shortness of breath) Qty: 30 5RF Discharge Orders: Discharge Order (Routine); Ordered 05/21/22 Ordered By: Lit Edwards Admission Data Admit Date/Time: 05/20/22 04:34 Attending Provider: Lit Edwards Admit Provider: Michel Quinn Primary Care Provider: Jeet Carter Other Providers: Michel Quinn ; Manish Peng ; Ambrosio Engel ; Waldemar Douglas ; Jeremie Rojo ; Phil Mckeon ; David Keller Jr ; Matt Chavira ; Lizbeth Cardenas ; Kaley Wong ; David Givens ; Naif Park ; Dale Chiu ; Lorena Baer ; Kenna Arias ; Jair Wallis ; Mello Rothman ; Michael Watson ; Jeremie Hawkins V.
--- NOTE | 2022-05-21 12:05 | Electrocardiogram Report ---
Test Reason : Blood Pressure : / mmHG Vent. Rate : 067 BPM Atrial Rate : 067 BPM P-R Int : 186 ms QRS Dur : 100 ms QT Int : 446 ms P-R-T Axes : 020 021 015 degrees QTc Int : 471 ms Normal sinus rhythm Normal ECG When compared with ECG of 20-MAY-2022 00:36, Nonspecific T wave abnormality no longer evident in Lateral leads Confirmed by Waldemar Douglas ([id number]) on 05/21/2022 12:04:56 PM Referred By: REFERRED SELF Confirmed By:Waldemar Douglas
== END 2022-05-21 11:58 | disposition home or self-care (01) ==
LOC: ED 22:37 → EDINP 22:37 → 2S 05-20 15:00
DX: I25.10 Atherosclerotic heart disease of native coronary artery without angina pectoris; Z90.5 Acquired absence of kidney; N40.0 Benign prostatic hyperplasia without lower urinary tract symptoms; F17.220 Nicotine dependence, chewing tobacco, uncomplicated; Z79.82 Long term (current) use of aspirin; R07.9 Chest pain, unspecified; N17.9 Acute kidney failure, unspecified; I10 Essential (primary) hypertension; Z95.5 Presence of coronary angioplasty implant and graft; Z86.73 Personal history of transient ischemic attack (TIA), and cerebral infarction without residual deficits; E11.9 Type 2 diabetes mellitus without complications; E78.5 Hyperlipidemia, unspecified; Z79.84 Long term (current) use of oral hypoglycemic drugs; Z79.899 Other long term (current) drug therapy